=== PATIENT | male | born 1995 | race Caucasian/White ===

== ENCOUNTER → 2017-12-17 | Outpatient (CLI) | payer BC ==
[~2017-12-17] MED LIST: AMOX500T PO; OPTIRAY 320 IV PRN; SUMA6KIT IM; VSK5 PO
--- NOTE | 2017-12-17 13:26 | DIAGNOSTIC IMAGING REPORT ---
CT ANGIOGRAM OF THE CHEST CLINICAL HISTORY: Atypical chest pain. COMPARISON STUDY: Chest x-ray dated 12/07/2006. TECHNIQUE: Following the IV administration of 93 cc of Optiray 320, CT angiogram of the chest was performed from the upper abdomen to the thoracic inlet utilizing the pulmonary embolus protocol. Images are reviewed in the axial, sagittal, and coronal planes. 3-D MIPS images are created and assessed. IV contrast was administered without complication. A dose lowering technique was utilized adhering to the principles of ALARA. The examination is compromised by motion artifact. CT DOSE: 520.96 mGycm FINDINGS: Thyroid: Imaged portions of the thyroid gland are normal in size and attenuation. Thoracic aorta: The thoracic aorta is normal in caliber and demonstrates standard 3-vessel arch anatomy. No dissection is seen. Pulmonary vasculature: The pulmonary trunk is normal in caliber. There are no filling defects identified in main, lobar, or proximal segmental pulmonary branches to suggest pulmonary embolus. Heart: The heart is normal in size and configuration, and without pericardial effusion. Lungs and pleural spaces: A 3 mm right middle lobe pulmonary nodule is seen on image #131. This is of doubtful significance in this age group. No airspace consolidation or pleural effusion is identified. Trachea and central airways are clear. Mediastinum: There is no mediastinal lymphadenopathy. Sarahi: Clear. Axillae: There is no axillary lymphadenopathy. Upper abdomen: Partially visualized upper abdominal viscera is within normal limits. Skeletal structures: No lytic or blastic bony lesions are seen. IMPRESSION: 1. There is no evidence of pulmonary embolus in the main, lobar, or proximal segmental pulmonary arteries. 2. The lungs are clear. Electronically signed by: Grady Welch M.D. 12/17/2017 1:25 PM Dictated Date/Time: 12/17/2017 1:21 PM
== END | disposition home or self-care (01) ==
LOC: C.CTS 13:02
PROVIDERS: ATTEND Internal Medicine Pulmonary Disease
DX: R05 Cough (principal); R04.2 Hemoptysis

== ENCOUNTER → 2017-12-17 | Outpatient (CLI) | payer BC ==
[~2017-12-17] MED LIST changes: -OPTIRAY 320 IV PRN
[2017-12-17 11:04] LABS: PTT PATIENT 25.2 SECONDS (21.0-31.0)
[2017-12-17 11:47] LABS: INFLUENZA B ANTIGEN Neg for Influ B (NEG)
== END | disposition home or self-care (01) ==
LOC: C.LAB1850 09:22
PROVIDERS: ATTEND Internal Medicine Pulmonary Disease
DX: R04.2 Hemoptysis (principal); R05 Cough

== ENCOUNTER 2017-12-20 07:01 | Day surgery (SDC) | payer BC ==
[~2017-12-20] VITALS: Ht 177.8 cm; Wt 95.5 kg
[2017-12-20] VITALS (8 sets, daily range): BP systolic 108–144; BP diastolic 52–80; PULSE 59–87; TEMP 36.6–36.9; O2SAT 97–100; Ht 177.8 cm; Wt 95.5 kg
[~2017-12-20 07:01] MED LIST changes: -AMOX500T PO; -VSK5 PO
--- NOTE | 2017-12-20 07:22 | History and Physical ---
History & Physical Date of Service Dec 20, 2017. History & Physical 22-year-old white male present her today to undergo bronchoscopy for evaluation of hemoptysis. 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 Jess Hinojosa for pulmonary evaluation. Patient has been in relatively good health he states he was diagnosed with childhood asthma and was limited in his youth with exertional dyspnea. He had an episode while in [place] of syncope felt to be secondary to a tachycardic rhythm. He saw Dr. Gamino at [facility] who placed him on pindolol. He has not had a recurrence. It is unclear whether that represented a supraventricular tachycardia. He states he has been ill for the past 2 weeks. He developed upper respiratory infection symptoms that was felt to be secondary to a flu syndrome possibly influenza. No nasopharyngeal swabs were done. Was placed on Tamiflu he started coughing and with associated hemoptysis. Initially was blood streaking and now it is on occasion 1-2 teaspoons almost daily. He has some symptoms of chest tightness but without pleuritic pain. He admits to some mild swelling of his lower extremities but no calf tenderness and no history of DVT or pulmonary thromboembolic episodes. No family history for such. He denies any bleeding diatheses but he has had epistaxis in the past. That has been self-limiting. No chest trauma noted. He does have an albuterol HFA to use 2 puffs q.4 hours p.r.n. and was placed on Augmentin 875 milligrams p.o. b.i.d. for 10 days. He has several days remaining. Dr. Barber is his primary care physician but will be retiring in the spring. Chest x-ray on 12/10/2017 showed no acute cardiopulmonary process. He is scheduled for a CTA on Wednesday. He has received a flu vaccine. He has been treated for left serous otitis in June for he has used nebulizer with albuterol and a steroid in the past. He suffers from GERD symptoms but does not take anything on a daily basis. He also has been diagnosed with Tourettes disorder exhibited by motor tics that he no longer shows to any significant degree unless he stressed. Most recent white count 7700 H/H 14 in 43 with 3.5 percent eosinophiles. Holter monitor in 2013 shows sinus tachycardia with no atrial or ventricular arrhythmias. He does have a history of allergic rhinitis and irritable bowel syndrome as well as migraine headaches. He has had no recurrence of though syncopal episodes. Active Problems 1. Migraine headache (G43.909) 2. Syncope and collapse (R55) Surgical History 1. History of Appendectomy 2. History of Oral Surgery Tooth Extraction Family History 1. No pertinent family history 2. Family history of Egg allergy 3. Family history of TBI (traumatic brain injury) Social History Alcohol use Chews tobacco (Z72.0) Former smoker (Z87.891) Current Meds 1. SUMAtriptan Succinate 4 MG/0.5ML SOLN; INJECT SUBCUTANEOUSLY ONE DOSE AT 2. Excedrin Migraine 250-250-65 MG Oral Tablet; TAKE 1 TABLET 3 TIMES DAILY 3. Tylenol Extra Strength 500 MG Oral Tablet; TAKE 1 TABLET EVERY 4 TO 6 HOURS Allergies 1. No Known Drug Allergies Vitals Blood Pressure: 118 / 76, LUE, Sitting Height: 5 ft 10 in Weight: 213 lb 4 oz BMI Calculated: 30.6 BSA Calculated: 2.14 O2 Saturation: 98, RA Respiration: 16 Temperature: 98 F Heart Rate: 68 CT (Chest for PE) Angiography 12/17/17 No evidence of PE, lung are WNL PT/INR Prothrombin Time 10.0 INR 1.0 17 Dec 2017 9:24 AM PTT PTT PATIENT 25.2 PARTIAL THROMBOPLASTIN RATIO 1.0 17 Dec 2017 9:24 AM Influenza Vir A or B Antigen Influenza Type A Ag Neg for Influ A Influenza Type B Ag Neg for Influ B Physical Exam Constitutional General appearance: No acute distress, well appearing and well nourished. Eyes Conjunctiva and lids: No swelling, erythema, or discharge. Pupils and irises: Equal, round and reactive to light. Ears, Nose, Mouth, and Throat External inspection of ears and nose: Normal. Otoscopic examination: Tympanic membrance translucent with normal light reflex. Canals patent without erythema. Oropharynx: Normal with no erythema, edema, exudate or lesions. Pulmonary Respiratory effort: No increased work of breathing or signs of respiratory distress. Auscultation of lungs: Clear to auscultation. Cardiovascular Palpation of heart: Normal PMI, no thrills. Auscultation of heart: Normal rate and rhythm, normal S1 and S2, without murmurs. Examination of extremities for edema and/or varicosities: Normal. Abdomen Abdomen: Non-tender, no masses. Liver and spleen: No hepatomegaly or splenomegaly. Lymphatic Palpation of lymph nodes in neck: No lymphadenopathy. Musculoskeletal Gait and station: Normal. Digits and nails: Normal without clubbing or cyanosis. Inspection/palpation of joints, bones, and muscles: Normal. Skin Skin and subcutaneous tissue: Normal without rashes or lesions. Neurologic Cranial nerves: Cranial nerves 2-12 intact. Reflexes: 2+ and symmetric. Sensation: No sensory loss. Psychiatric Orientation to person, place and time: Normal. Mood and affect: Normal.
[2017-12-20] MEDS ORDERED: VSK5 PO ×2 (07:49)
[2017-12-20] MEDS ORDERED: AMOX500T PO ×2 (07:50)
--- NOTE | 2017-12-20 08:43 | History & Physical Bridge Note ---
H&P Re-Evaluation Bridge Note: I have examined the patient, reviewed the History & Physical and in the interval since the performance of the History & Physical I have noted the following changes of clinical significance: No changes noted
--- NOTE | 2017-12-20 08:44 | Pre Sedation Assessment ---
Pre Sedation Assessment General Date of Sedation: Dec 20, 2017. Vital Signs Past 12 Hours Date Time Temp Pulse Resp B/P (MAP) Pulse Ox O2 Delivery O2 Flow Rate FiO2 12/20/17 07:52 36.9 73 20 128/76 (93) 100 Room Air Pre-Sedation Airway Assessment Smoking Status: Former Smoker Hx of Sleep Apnea: No Short Thick Neck: No Oral Cavity: WNL Mallampati Classification: Class II ASA Classification: Class I NPO Status Date of Last Intake of Fluids: Dec 19, 2017 Time of Last Intake of Fluids: 2200 Date of Last Intake of Solids: Dec 19, 2017 Time of Last Intake of Solids: 1800 Procedure Planning Contraindications for Sedation: None Current Medications Reviewed: Yes Notes The planned sedation has been discussed with the patient. Informed Consent was obtained. I have identified the patient, determined the appropriateness of sedation and have assessed the patient immediately prior to the procedure. All medicine(s) and interventions are by my order.
[2017-12-20] MEDS ORDERED: NURSING VERBAL MED ORDER ONE (09:00)
[2017-12-20] MEDS ORDERED: DEXTROSE 5% 1000ML 1,000 ML IV SCH (09:30)
--- NOTE | 2017-12-20 09:47 | Post Sedation Assessment ---
Post Sedation Assessment General Date of Sedation Dec 20, 2017. Vital Signs: Vital Signs Past 12 Hours Date Time Temp Pulse Resp B/P (MAP) Pulse Ox O2 Delivery O2 Flow Rate FiO2 12/20/17 09:40 69 17 136/77 90 Oxymask 6 12/20/17 09:35 76 16 130/74 88 Oxymask 6 12/20/17 09:30 74 14 135/80 97 Oxymask 6 12/20/17 09:25 72 14 122/73 96 Oxymask 6 12/20/17 09:20 64 18 128/73 98 Oxymask 6 12/20/17 09:14 70 21 129/74 97 Oxymask 6 12/20/17 07:52 36.9 73 20 128/76 (93) 100 Room Air Post Procedure Recovery Score Activity: (2) Moves 4 extremities * Circulation: (2) +/-20% PreAnes Value Consciousness: (1) Arouseable (by name) Oxygen Saturation: (1) O2 needed for >90% Discharge Sedation Level of Care: Phase I Post Sedation Plan On clinical assessment, the patient appears to have tolerated the sedation without complications. Patient is recovering as anticipated. Patient will continue to be monitored by nursing and may be discharged when sedation discharge criteria are met per below protocol. Upon Completions of procedure and additional 15 minutes continue every 5 minute vital signs and the P.A.R. score; then discharge to a Phase I or Fast Track to Phase II per the following guidelines: * Discharge Patient to appropriate Phase II area if PAR is 8 or greater or return to pre- procedure baseline. The post - procedure orders will be as directed. * If PAR score is less than 8 or not return to pre-procedure baseline then patient will follow Phase I monitoring till PAR is reached for Phase II. The Phase I may be done in procedure room or may call to secure a Phase I area. * If naloxone or flumazenil are used for reversal, hold in Phase I for an additional 60 -120 minutes before discharge to Phase II. Please call the Sedation Physician to re-evaluate and complete post-note for discharge to Phase II area. Do NOT discharge from procedure sedation or Phase 1 until post- sedation evaluation note is complete by procedure /sedation MD Sedation Discharge Instructions to be given to the patient at discharge to home.
--- NOTE | 2017-12-20 09:49 | Bronchoscopy Procedure Note ---
Bronchoscopy Procedure Note Procedure: Bronchoscopy, conscious sedation, bronchial lavage right middle lobe Consent: Obtained through the patient placed into the chart Pre-procedural diagnosis: Hemoptysis Post-procedural diagnosis: Hemoptysis Start time: 919 End time: 939 Total time: 20minutes Analgesia: 2% liquid lidocaine: Via nebulizer 4% gel lidocaine: Via right naris 2% liquid lidocaine: Via bronchoscopy Sedation: Versed IV: 6mg Fentanyl IV: 125g Procedure: The [place] video bronchoscope was used for this procedure and passed down through the oropharynx and retroflexed off the soft palate Zena/posterior naris/posterior oropharynx: Some mild posterior oropharyngeal erythema with cobblestoning Glottis: Anatomically within normal limits Vocal cords: Proper abduction and abduction, anatomically within normal limits Subglottis/trachea/Tierney: Anatomically within normal limits Right bronchial tree: Right mainstem bronchus: Anatomically within normal limits Right upper lobe: Anatomically within normal limits Bronchus intermedius: Anatomically within normal limits Right middle lobe: Anatomically within normal limits Right lower lobe: Anatomically within normal limits Findings: No significant findings noted Left bronchial tree: Left mainstem bronchus: Anatomically within normal limits Left upper lobe: Anatomically within normal limits Lingula: Anatomically within normal limits Left lower lobe: Anatomically within normal limits Findings: No significant findings noted Bronchial alveolar lavage: Right middle lobe Esophagus: The bronchoscope was passed approximately 5 cm in the esophagus and then esophagus was inflated there is some mild erythema appreciated EBL: None Complications: None Follow-up: ASU
[2017-12-20] MEDS ORDERED: LIDOCAINE VISCOUS 2% 100ML TOP ONE (09:57)
[2017-12-20] MEDS ORDERED: FENTANYL CITRATE INJ 50 MCG/1 ML 2 ML VIAL IV ONE (09:57)
[2017-12-20] MEDS ORDERED: MIDAZOLAM HCL 5 MG/ML 1 ML VIAL IV ONE (09:57)
[2017-12-20] MEDS ORDERED: LIDOCAINE 4% INH SOLN 4 ML BTL TOP ONE (09:57)
[2017-12-20] MEDS ORDERED: LIDOCAINE HCL 2% LOCAL 50ML VIAL INSTIL ONE (09:57)
--- NOTE | 2017-12-20 10:25 | Discharge Instructions ---
Discharge Instructions Date of Service Dec 20, 2017. Admission Reason for Admission: Hemoptysis Discharge Discharge Diagnosis / Problem: hemoptysis Discharge Goals Goal(s): Diagnostic testing Activity Recommendations Activity Limitations: resume your previous activity . Instructions / Follow-Up Instructions / Follow-Up Gastroenterology: Dr. Abraham Roberts [facility] pulmonary division Dr. Alex Bowen Current Hospital Diet Patient's current hospital diet: Discharge Diet Recommended Diet: Regular Diet Procedures Procedures Performed: BRONCHOSCOPY, conscious sedation, bronchial lavage right middle lobe Pending Studies Studies pending at discharge: no Medical Emergencies . Who to Call and When: Medical Emergencies: If at any time you feel your situation is an emergency, please call 911 immediately. . Non-Emergent Contact Non-Emergency issues call your: [employer] . . "Provider Documentation" section prepared by Alex Bowen. . VTE Core Measure Inpt VTE Proph given/why not?: Treatment not indicated
== END 2017-12-20 12:23 | disposition home or self-care (01) ==
LOC: C.ACU 07:01
PROVIDERS: ATTEND Internal Medicine Pulmonary Disease
DX: R04.2 Hemoptysis (principal); F95.2 Tourette's disorder; Z90.89 Acquired absence of other organs; Z98.818 Other dental procedure status; Z87.891 Personal history of nicotine dependence

== ENCOUNTER → 2018-01-19 | Outpatient (CLI) | payer OTHER ==
[~2018-01-19] MED LIST changes: +AMOX500T PO; +ASPI-390 PO; +OMEP20CA59 PO; +RANI300T2 PO; +VNTHFA/IN INH; +VSK5 PO
== END | disposition home or self-care (01) ==
LOC: C.LAB1850 17:04
PROVIDERS: ATTEND Internal Medicine Pulmonary Disease
DX: K21.9 Gastro-esophageal reflux disease without esophagitis (principal); R04.2 Hemoptysis; R06.02 Shortness of breath

== ENCOUNTER → 2018-02-04 | Day surgery (SDC) | payer OTHER ==
[~2018-02-04] VITALS: Ht 177.8 cm; Wt 95.5 kg
[~2018-02-04] MED LIST changes: -AMOX500T PO; +FENTANYL CITRATE INJ 50 MCG/1 ML 2 ML VIAL ONE; +LIDOCAINE HCL 2% 2 ML VIAL (20MG/ML) ONE; +PROPOFOL IV EMULSION 10 MG/ML 20 ML VIAL IV ONE; +SODIUM CHLORIDE 0.9% 500ML 500 ML IV ONE
[2018-02-04 10:17] VITALS: Ht 177.8 cm; Wt 95.5 kg
--- NOTE | 2018-02-04 10:30 | Endo History and Physical ---
History & Physical Date of Service: Feb 04, 2018. Chief Complaint: VOMITING BLOOD Referring Physician: DR. MUIR History of Present Illness 22 yo CM who presents for EGD secondary to hematemesis. Past Surgical History Hx Cardiac Surgery: No Hx Internal Defibrillator: No Hx Pacemaker: No Hx Abdominal Surgery: Yes (APPY) Hx of Implantable Prosthesis: No Hx Post-Op Nausea and Vomiting: Yes (NAUSEA WITH APPY) Hx Cancer Surgery: No Hx Thoracic Surgery: Yes (BRONCHOSCOPY) Hx Orthopedic: No Hx Urinary Tract Surgery: No Family History IBD Social History Smoking Status: Former Smoker Hx Substance Use: No Hx Alcohol Use: Yes (OCCASIONALLY) Allergies Coded Allergies: No Known Allergies (Verified , 02/04/18) Current Medications Reported Home Medications Medications Dose Route/Sig Max Daily Dose Days Date Category Dose Instructions Excedrin Migraine (Ngtnfak-Ehrcjniouvvbh-Yqbxzbve) 1 Tab Tab 2 Cap PO 02/04/18 Reported Ventolin Hfa (Albuterol) 200 Puffs/13694 Mcg Aers 2-4 Puffs INH Q6H PRN 01/21/18 Reported Imitrex Statdose (Sumatriptan Succinate) 6 Mg/0.5 Ml Inj 1 Dose IM DIRECTED PRN 01/21/18 Reported Prilosec (Omeprazole) 20 Mg Capcr 20 Mg PO BID 01/21/18 Reported Zantac (Ranitidine HCl) 300 Mg Tab 300 Mg PO HS 01/21/18 Reported Visken (Pindolol) 5 Mg Tab 5 Mg PO BID 12/20/17 Reported HAS NOT RESTARTED MEDICATION, JUST REORDERED BY DR. BENNETT Vital Signs Weight (Kilograms): 95.45 Height (Feet): 5 Height (Inches): 10 Date Time Temp Pulse Resp B/P (MAP) Pulse Ox O2 Delivery O2 Flow Rate FiO2 02/04/18 10:19 37.0 83 20 139/69 (92) 95 Room Air Physical Exam General Appearance: WD/WN, no apparent distress Respiratory/Chest: Auscultation: breath sounds normal Cardiovascular: Heart Auscultation: RRR Abdomen: Bowel Sounds: normal Inspection & Palpation: soft, non-distended, no tenderness, guarding & rebound Assessment and Plan Assessment: 22 yo CM who presents for EGD secondary to hematemesis. Plan: Proceed with EGD.
--- NOTE | 2018-02-04 11:44 | Discharge Instructions ---
Endoscopy Patient Instructions Date / Procedure(s) Performed Feb 04, 2018. EGD Allergy Information Coded Allergies: No Known Allergies (Verified , 02/04/18) Discharge Date / Findings Feb 04, 2018. Gastritis s/p biopsies Esophagitis s/p biopsies Medication Instructions OK to resume all medications today as prescribed Reported Home Medications Medications Dose Route/Sig Max Daily Dose Days Date Category Dose Instructions Excedrin Migraine (Admyvww-Qychexahqgggu-Jgfngges) 1 Tab Tab 2 Cap PO 02/04/18 Reported Ventolin Hfa (Albuterol) 200 Puffs/61814 Mcg Aers 2-4 Puffs INH Q6H PRN 01/21/18 Reported Imitrex Statdose (Sumatriptan Succinate) 6 Mg/0.5 Ml Inj 1 Dose IM DIRECTED PRN 01/21/18 Reported Prilosec (Omeprazole) 20 Mg Capcr 20 Mg PO BID 01/21/18 Reported Zantac (Ranitidine HCl) 300 Mg Tab 300 Mg PO HS 01/21/18 Reported Visken (Pindolol) 5 Mg Tab 5 Mg PO BID 12/20/17 Reported HAS NOT RESTARTED MEDICATION, JUST REORDERED BY DR. BENNETT Provider Instructions Activity Restrictions - No exercising or heavy lifting for 24 hours. - Do not drink alcohol the day of the procedure. - Do not drive a car or operate machinery until the day after the procedure. - Do not make any important decisions or sign important papers in 24 hours after the procedure. Following Day: - Return to full activity which may include returning to work/school. Diet Start your diet with liquids and light foods (jello, soup, juice, toast). Then eat your usual diet if not nauseated. Treatment For Common After Affects For mild abdominal pain, bloating, or excessive gas: - Rest - Eat lightly - Lie on right side Follow-Up Information Follow-up with DR. MUIR as scheduled Anesthesia Information What You Should Know You have had a procedure that required some medicine to reduce anxiety and discomfort. This treatment is called moderate sedation. After receiving the treatment, you may be sleepy, but you will be able to breathe on your own. The effects of the treatment may last for several hours. Follow these instructions along with Activity/Diet recommendations noted above: * Do NOT do anything where dizziness or clumsiness would be dangerous. * Rest quietly at home today, then you can be up and about tomorrow. * Have a responsible person stay with you the rest of today. * You may have had an I.V. today. If so, you may take the dressing off later today. Recommendations Call your doctor if: * Trouble breathing * Continuous vomiting for more than 24 hours * Temperature above 101 degrees * Severe abdominal pain or bloating * Pain not relieved by pain medicine ordered * There is increased drainage or redness from any incision * A large amount of rectal bleeding greater than 2-3 tablespoons. (If you had a polyp/s removed or have hemorrhoids, a small amount of blood - from the rectum is to be expected.) * You have any unanswered questions or concerns. IN THE EVENT OF A SERIOUS EMERGENCY, GO TO THE NEAREST EMERGENCY ROOM Your discharge instructions were prepared by provider Rolando Roberts. Patient Instructions Signature Page Hernan Humphreys Patient (or Guardian) Signature/Date: I have read and understand the instructions given to me by my caregivers. Caregiver/RN/Doctor Signature/Date: The above-named patient and/or guardian has received patient instructions on this date. + Original Patient Signature Page (only) stays with chart. Please make copy for patient.
--- NOTE | 2018-02-04 11:59 | Anesthesiology Progress Note ---
Anesthesia Post Op Note Date & Time Feb 04, 2018 at 11:58 Vital Signs Pain Intensity: 6 Vital Signs Past 12 Hours Date Time Temp Pulse Resp B/P (MAP) Pulse Ox O2 Delivery O2 Flow Rate FiO2 02/04/18 11:52 76 20 93/66 (75) 98 Room Air 02/04/18 10:19 37.0 83 20 139/69 (92) 95 Room Air Notes Mental Status: alert / awake / arousable, participated in evaluation Pt Amnestic to Procedure: Yes Nausea / Vomiting: adequately controlled Pain: adequately controlled Airway Patency, RR, SpO2: stable & adequate BP & HR: stable & adequate Hydration State: stable & adequate Anesthetic Complications: no major complications apparent
[2018-02-04 12:22] VITALS: BP 112/52; PULSE 74; O2SAT 97
--- NOTE | 2018-02-08 08:47 | GI REPORT ---
Procedure Date: 02/04/2018 11:25 AM Procedure: Upper GI endoscopy Indications: Hematemesis Medicines: Monitored Anesthesia Care Complications: No immediate complications. Estimated Blood Loss: Estimated blood loss: none. Procedure: Pre-Anesthesia Assessment: - Prior to the procedure, a History and Physical was performed, and patient medications and allergies were reviewed. The patient's tolerance of previous anesthesia was also reviewed. The risks and benefits of the procedure and the sedation options and risks were discussed with the patient. All questions were answered, and informed consent was obtained. Prior Anticoagulants: The patient has taken no previous anticoagulant or antiplatelet agents. ASA Grade Assessment: II - A patient with mild systemic disease. After reviewing the risks and benefits, the patient was deemed in satisfactory condition to undergo the procedure. After obtaining informed consent, the endoscope was passed under direct vision. Throughout the procedure, the patient's blood pressure, pulse, and oxygen saturations were monitored continuously. The scope was introduced through the mouth, and advanced to the second part of duodenum. The upper GI endoscopy was accomplished without difficulty. The patient tolerated the procedure well. Findings: LA Grade A (one or more mucosal breaks less than 5 mm, not extending between tops of 2 mucosal folds) esophagitis with no bleeding was found. Biopsies were taken with a cold forceps for histology. Localized mild inflammation characterized by erythema was found in the gastric antrum. Biopsies were taken with a cold forceps for histology. The examined duodenum was normal. Impression: - LA Grade A reflux esophagitis. Biopsied. - Gastritis. Biopsied. - Normal examined duodenum. Recommendation: - Resume previous diet. - Continue present medications. - Await pathology results. - Return to primary care physician as previously scheduled. Rolando Roberts, 02/04/2018 11:49:50 AM This report has been signed electronically. Note Initiated On: 02/04/2018 11:25 AM I attest to the content of the Intraoperative Record and orders documented therein, exceptions below
== END | disposition home or self-care (01) ==
LOC: C.GI 09:51
PROVIDERS: ATTEND Internal Medicine
DX: K92.0 Hematemesis (principal); K21.0 Gastro-esophageal reflux disease with esophagitis; K29.70 Gastritis, unspecified, without bleeding; Z90.49 Acquired absence of other specified parts of digestive tract; Z87.891 Personal history of nicotine dependence

== ENCOUNTER 2025-03-24 17:00 | Inpatient (IN) ==
--- OUTSIDE RECORDS SUMMARY | 2025-03-24 17:07 | External Medical Summary | Summary of Care ---
Author Name Unknown Organization [facility] Address [address] [place] [address] Phone [phone] Care Team Providers [employer] Contact Printer Name Role Phone Jess Hinojosa DO Primary Care Provider [phone] Reason for Referral * Precert (Within 10 days (routine)) - Pending Review Specialty Diagnoses / Procedures Referred By Nguyễn herrera Referred To Contact Sleep Disorders Diagnoses ALANA (obstructive sleep apnea) Procedures HOME SLEEP TEST W/TYPE 4 MONITOR, 3 CHANNEL Sheng Jim PA-C [address] [place] [address] Phone: tel: fax: Referral ID Status Reason Start Date Expiration Date V isits Requested Visits Authorized [id number] Pending Review 02/21/2025 999 999 Reason for Visit * Reason Comments Follow Up * Evaluate & Treat - Unlimited Visits (Within 10 days (routine)) - Pending Review Specialty Diagnoses / Procedures Referred By Nguyễn herrera Referred To Contact Sleep Medicine / Sleep Disorders Diagnoses S/P ablation operation for arrhythmia SVT (supraventricular tachycardia) (HCC) Samina Blakely CRNP [address] [place] [address] Phone: tel: fax: Referral ID Status Reason Start Date Expiration Date Visits Requested Visits Authorized [id number] Pending Review Specialty Services Required 01/26/2025 2 2 Encounter Details Date Type Department Care Team (Late st Contact Info) Description 02/21/2025 3:30 PM EDT Telemedicine Sleep Disorders Medicine Abhay Carter [address] [place] [id number] Sheng Jim PA-C [address] [facility] [place] [id number] ALANA (obstructive sleep apnea)* Allergies Active Allergy Reactions Criticality Noted Date Comments Doxycycline Hives High 08/07/2021 Rash all over body Sumatriptan Neuro complications (Please comment) 09/19/2020 Severe muscle pain, increased migraine. documented as of this encounter (statuses as of 02/21/2025) Medications Rizatriptan Benzoate (MAXALT) 10 MG TabletIndications :Migraine variant Take 1 Tab by mouth as needed for Migraine. at onset of headache, may repeat every 2 hours up to 2 times. Up to 3 tablets in 24 hours 20 Tab 3 0 Active Albuterol Sulfate HFA 108 (90 Base) MCG/ACT Inhalation Aerosol SolutionIndicatio ns:Acute bronchospasm Inhale 2 Puffs by mouth every 4 hours as needed for Wheezing. 18 g 3 1 Active Simethicone 80 MG Oral Tablet Chewable (Mylicon) Take 1 Tablet by mouth every 6 hours as needed for Gas. 30 Tablet 3 Active Acetaminophen 325 MG Oral Tablet (Tylenol) Take 3 Tablets by mouth every 6 hours. 30 Tablet 3 Active Ondansetron HCl 4 MG Oral Tablet (Zofran)Indicatio ns:Preop examination TAKE ONE TABLET BY MOUTH EVERY 8 HOURS NEEDED FOR NAUSEA AFTER SURGERY 20 Tablet 4 02/22/20 25 Active Pantoprazole Sodium 40 MG Oral Tablet Delayed Release (Protonix) Take 1 Tablet by mouth in the morning. 90 Tablet 3 4 Active Metoprolol Succinate ER 25 MG Oral Tablet Extended Release 24 Hour (toPROL XL) Take 1 Tablet by mouth in the morning and 1 Tablet before bedtime. 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 Reflux esophagitis 02/27/2008 Obesity, BMI not known 05/02/2007 ANTONIA TOURETTE DISORDER 11/08/2006 Family history of other cardiovascular diseases 06/01/2006 Overview (02/13/2016): ICD-10 update of inactive term Chronic motor or vocal tic disorder 08/25/2005 Irritable bowel syndrome 02/08/2004 Other allergic rhinitis 05/02/1999 Overview (09/14/2017): ICD-10 update of inactive term documented as of this encounter (statuses as of 02/21/2025) Resolved Problems Problem Noted Date Diagnosed Date Resolved Date Post-op pain 02/04/2023 06/01/2024 Food insecurity 03/30/2022 03/31/2023 Overview: Per [facility] Protocol Palpitations 09/17/2014 07/05/2020 ADVANCE DIRECTIVE INFORMATION 11/30/2006 09/25/2024 Overview (11/30/2006): Not applicable (under age of 18) Asthma with severity to be determined 08/25/2005 02/26/2012 Overview (03/02/2016): ICD-10 update of inactive term PURE HYPERCHOLESTEROLEM 02/14/200410/22 Overview (11/07/2009): Per Lipid Taxonomy. documented as of this encounter (statuses as of 02/21/2025) Immunizations Name Administration Dates Next Due COVID-19 mRNA, LNP-s, No Pre serve, 2-Dose Series ([employer]) 09/15/2021,12/03/2020,11/09/2020 Covid-19, Mrna, Lnp-s, Pf, B ivalent, 30 Mcg, IM, 12 yrs and above ([employer]) 10/20/2022 HPV Vaccine, 9-Valent 05/06/2023 Hepatitis B, 0-19 yrs 03/21/2013 Meningococcal Conjugate Vacc ine (Menactra/Menveo) 11/20/2008 Meningococcal MCV4O Conjugat e Vaccine (Menveo) 05/06/2023 PPD 06/01/2024,,05/06/2023,05/31,12/10/2017,12/06/2012 Seasonal Influenza Vac., MDV , IM, 0.5 mL (Fluzone) 08/18/2014,11/25/2011,10/16/2009,10/10 Seasonal Influenza, PF, 6 M & above, IM , (FluLaval or Fluzone) 08/20/2023,07/28/2022 Seasonal Influenza, Quadriva lent, No Preserve, IM 09/22/2019,09/09/2017 Seasonal Influenza, Trivalen t, (IIV3), PF, (Fluzone) 09/11/2024 TDAP (age 10 and older)(Boostrix) 12/27/2019, Varicella Vaccine (Chicken Pox) 11/20/2008 documented as of this encounter Social History Tobacco Use Types Packs/Day Years Used Date Smoking Tobacco: Former Cigarettes 0.3 2 1 12/23/2009 - 10/22/2012 Smokeless Tobacco: Former Chew, Snuff Quit: 2020 Comments:no passive smoke at home Alcohol Use Standard Drinks/Week Comments Yes 0 (1 standard drink = 0.6 oz pur e alcohol) social PHQ-2 Answer Date Recorded PHQ Adult Total Score 0 06/01/2024 Hunger Vital Sign Answer Date Recorded Within the past 12 months, y ou worried that your food would run out before you got the money to buy more. Never true 06/01/20 24 Within the past 12 months, t he food you bought just didn't last and you didn't have money to get more. Never true 06/01/2024 Childcare Answer Date Recorded Do you feel overwhelmed with taking care of a child, family member or friend? No 06/01/2024 Does your family need help f inding childcare? (Household - for ages 0-17 years) Not on file 06/01/2024 Clothing Answer Date Recorded Have you been unable to get clothing when it was really needed? No 06/01/2024 Is your family able to get c lothes or diapers when needed? (Household - for ages 0-17 years) Not on file 06/01/2024 Personal Safety Answer Date Recorded Do you feel unsafe or have concerns for your saf ety? No 06/01/2024 Do you have concerns for you r family's safety? (Household - for ages 0-17 years) Not on file 06/01/2024 Utilities Answer Date Recorded Do you have trouble paying y our heating, water, or electric bill? No 06/01/2024 Is your family able to pay t he heat, water, or electric bill? (Household - for ages 0-17 years) Not on file 06/01/2024 Does your family have access to good internet? (Household - for ages 0-17 years) Not on file 06/01/2024 Employment Status Answer Date Recorded Are you unemployed or without regular income? No 06/01/2024 Does the household have a [facility] [place] source of income? (Household - for ages 0-17 years) Not on file 06/01/2024 Social Connections Answer Date Recorded How often do you feel lonely or isolated from th ose around you? Never 06/01/2024 Financial Resource Strain Answer Date R ecorded Do you have any trouble payi ng for your medications, or do you think you might in the future? No 06/01/2024 Does your family have troubl e paying for medicine? (Household - for ages 0-17 years) Not on file 06/01/2024 Transportation Needs Answer Date Record ed Do you have trouble getting a ride to medical visits or work? (Adult - for ages 18 years and over) Not on file 06/01/2024 Does your family have a hard time getting a ride to doctors visits? (Household - for ages 0-17 years) Not on file 06/01/2024 Has lack of transportation k ept you from medical appointments, meetings, work, or from getting things needed for daily living? Check all that apply. No 06/01/2024 Do you (or your family) have trouble finding or paying for a ride (transportation)? (Household - for ages 0-17 years) Not on file 06/01/2024 Housing Stability Answer Date Recorded Do you currently live in a s helter or have no steady place to sleep at night? No 06/01/2024 Do you think you are at risk of becoming homeless? (Adult - for ages 18 years and over) Not on file 06/01/2024 Does your family worry about paying for your home or becoming homeless? (Household - for ages 0-17 years) Not on file 0 06/01/2024 Are you homeless or worried that you might be in the future? No 06/01/2024 Are you (or your family) tico eless or worried that you might be in the future? (Household - for ages 0-17 years) Not on file Food Insecurity Answer Date Recorded Do you need food for this week? No 06/01/2024 Are you able to get enough f ood for your family? (Household - for ages 0-17 years) Not on file 06/01/2024 Does your family need food t his week? (Household - for ages 0-17 years) Not on file 06/01/2024 Do you always have enough fo od for your family? (Household - for ages 0-17 years) Not on file 06/01/2024 Food Insecurity Answer Date Recorded Within the past 12 months, y ou worried that your food would run out before you got the money to buy more. Never true 06/01/20 24 Within the past 12 months, t he food you bought just didn't last and you didn't have money to get more. Never true 06/01/2024 Do you need food for this week? 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 Not on file Not on file Not on file documented as of this encounter Functional Status * Are you deaf or do you have serious difficulty hearing? Answer Date of Assessment Author No 02/04/2023 3:15 PM EDT Fernando Granados RN * Are you blind or do you have serious difficulty seeing, even when wearing glasses? Answer Date of Assessment Author No 02/04/2023 3:15 PM EDT Fernando Granados RN * Do you have serious difficulty walking or climbing stairs? (5 years old or older) Answer Date of Assessment Author No 02/04/2023 3:15 PM EDT Fernando Granados RN * Do you have difficulty dressing or bathing? (5 years old or older) Answer Date of Assessment Author No 02/04/2023 3:15 PM EDT Fernando Granados RN * Because of a physical, mental, or emotional condition, do you have difficulty doing errands alone such as visiting a doctor’s office or shopping? (15 years old or older) Answer Date of Assessment Author No 02/04/2023 3:15 PM Frenando Hopson RN documented as of this encounter Mental Status * Because of a physical, mental, or emotional condition, do you have serious difficulty concentrating, remembering, or making decisions? (5 years old or older) Answer Entry Date Author No 02/04/2023 3:15 PM Fernando Hopson RN documented in this encounter Patient Instructions * Patient Instructions* Sheng Jim PA-C - 02/21/2025 3:39 PM EDT We are ordering a test to evaluate you for sleep apnea. If results are positive, in most cases we will start by ordering a CPAP, and you will receive notification (via My Chart or phone) of positive test results. In some cases if the sleep apnea is very severe or shows concerning problems with oxygen, we will want you to come back to the sleep lab for aCPAP titration study. If a CPAP is ordered, you will be contacted by [employer] regarding the CPAP order, and they will match you with a home care company that supplies CPAPs. You will receive a CPAP in the followingweeks. If you do not already have a follow up appointment scheduled, once a CPAP is received please contact our office for an appointment ([phone]). Insurance requires follow-up 31-90 days after starting CPAP. Please use the machine as much as possible to meet insurance requirement of 70% (at least 4 hours per night). The insurance company is essentially renting the device from the supplier, so if you don't use it enough, they do not want to keep paying for it. Sleep Hygiene Instructions 1. Keep your bedtime and wake time the same throughout the week. Try not to vary it by more than 1 hour. 2. Do not use your bed for anything except sleep; that is, do not read, watch TV, eat or worry in bed. Sexual activity is the only exception to this rule. On such occasions, the instructions are to be followed afterward when you intend to go to sleep. 3. If you find yourself unable to fall asleep, get up and go into another room. Stay up as long as you wish, and then return to the bedroom to sleep. Although we do not want you to watch the clock, we want you to get out of bed if you do not fall asleep within 15-20 minutes. Remember, the goal is to associate your bed with falling asleep quickly! Return to bed intending to go to sleep only when you are very sleepy. 4. While out of bed during the night, engage in activities that are quiet but of interest to you (e.g. read a book). Do not exercise, eat, smoke, or take warm showers or baths. Do not lie down or fall asleep when not in bed. 5. If you do return to bed and still cannot fall asleep within 15 minutes, repeat Step 3. Do this as often as necessary throughout the night. 6. Set your alarm and get up at the same time every morning irrespective of how much sleep you got during the night. This will help your body acquire a consistent sleep rhythm. Get into bright light (open shades, turn on lights) within a few minutes of awakening. 7. Allow yourself at least 30-60 minutes before bedtime to unwind. Use this period to engage in your pre-bedtime rituals (e.g., reading, brushing teeth, etc.) in a relaxing place other than your bedroom. Dim the lights. Do not rehash the events of the day or plan tomorrow's schedule. 8. Do not watch your clock during the night. This increases wakefulness and makes it more difficultto fall asleep. Sleep Hygiene Do's and Don't's: Paying attention to good sleep hygiene is the most important thing you can do to maintain good sleep. DO: Go to bed at the same time each day. Get up from bed at the same time each day. Get regular exercise each day, preferably in the morning or afternoon. There is good evidence that regular exercise improves restful sleep. This includes stretching and aerobic exercise. Get regular exposure to outdoor or bright lights, especially in the morning. Keep the temperature of your bedroom comfortable. Keep the bedroom quiet when sleeping. Keep the bedroom dark enough to facilitate sleep. Use your bed only for sleep and sex. Take medications as directed. Use a relaxation exercise just before going to sleep. Muscle relaxation, imagery, massage, warm bath, etc. Keep your feet and hands warm. Wear warm socks and /or mittens or gloves to bed. DON'T: Exercise just before going to bed. Engage in stimulating activity just before bed, such as playing a competitive game, watching an exciting program or movie, or having an important discussion with a loved one. Have caffeine in the evening (coffee, many teas, chocolate, sodas, etc.) Read, use your smartphone or watch television in bed. Use alcohol to help you sleep. Go to bed too hungry or too full. Take another person's sleeping pills. Take ndon-jlk-[id number] sleeping pills without your doctor's knowledge. Tolerance can develop rapidlywith these medications. Diphenhydramine (an ingredient commonly found in vfxc-tse-[id number] sleep meds) can have serious side effects, especially for older patients. Command yourself to go to sleep. This only makes your mind and body more alert. documented in this encounter Progress Notes * Sheng Jim PA-C - 02/21/2025 3:22 PM EDT Sleep Medicine Follow-Up Patient location: HOME. I was in a hospital or clinic location. After connecting through televideo,patient was verified with two unique identifiers. Patient (or authorized legal contracts representative) was then informed that this was a Telemedicine visit and being conducted confidentially over secure lines. Methods to assure confidentiality were taken. Patient acknowledged consent and understanding of pr ivacy and security of the Telemedicine visit. The patient agreed to participate. CC: Follow up for ALANA HPI: Hernan Humphreys is a 30 year old male with fatigue, asthma, and hx of atrial tachycardia, being seen today for follow up. Initially seen by Sleep in 2021 for fatigue, PSG was ordered but canceled. He was seen by endocrine a while back and had a workup then, and had an EP study for possible SVT that need up showing atrial tach so the ablation was not done. He was started on metoprolol and fatigue has increased slightly. Per his he does snore. 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 For [employer] he works 12 hour swing shifts, could be day or night. Can sleep during mini shifter in a bunk room. Sleep schedule is: variable -- sleep time varies from 3-10 hours Bedtime ranges from 7 to midnight if he is working day shift. He finds it next to impossible to during the day despite having blackout curtains. 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 Sitting and reading Moderate chance of dozing Watching TV Slight chance of dozing Sitting inactive in a public place, such as a theater or meeting No chance of dozing As a passenger in a car for an hour without a break Moderate chance of dozing Lying down to rest in the afternoon when circumstances permit Moderate chance of dozing When sitting and talking to someone No chance of dozing When sitting quietly after lunch without alcohol Slight chance of dozing In a car, while stopped for a few minutes in traffic No chance of dozing Score (range: 0 - 24) 8 Functional Outcomes Of Sleep Question 02/21/2025 12:31 PM EDT - Filed by Patient Please complete the following questions. Do you have difficulty concentrating because you are sleepy or tired? Yes, extreme Do you have difficulty remembering things because you are sleepy or tired? Yes, moderate Do you have difficulty operating a motor vehicle for short distances (less than 100 miles) because you become sleepy? No Do you have difficulty operating a motor vehicle for long distances (more than 100 miles) because you become sleepy? Yes, a little Do you have difficulty visiting family or friends in their home because you become sleepy or tired?No Has your relationship with family, friends, or work colleagues been affected because you are sleepyor tired? No Do you have difficulty watching a movie or video because you become sleepy or tired? No Do you have difficulty being as active as you want to be in the evening because you are tired or sleepy? Yes, extreme Do you have difficulty being as active as you want to be in the morning because you are tired or sleepy? Yes, extreme Has your mood been affected because you are sleepy or tired? Yes, extreme Score (range: 10 - 40) 25 [facility] Visit Accident Related Question Question 02/21/2025 12:31 PM EDT - Filed by Patient Is this visit related to an accident? (i.e work, motor vehicle) No ROS: Denies: chest pain, SOB, RLS symptoms, parasomnias, nocturnal reflux Patient Active Problem List Diagnosis Other allergic rhinitis Irritable bowel syndrome Chronic motor or vocal tic disorder Family history of other cardiovascular diseases ANTONIA TOURETTE DISORDER Obesity, BMI not known Reflux esophagitis DYSLIPIDEMIA, GOAL TO BE DETERMINED Migraine Asthma in remission Adjustment disorder with depressed mood Other acne Migraine variant Betancourt's esophagus without dysplasia Hiatal hernia GERD (gastroesophageal reflux disease) Hiatal hernia Well adult exam SVT (supraventricular tachycardia) (HCC) Past Medical History: Diagnosis Date asthma 04/2005 Asthma Chronic motor or vocal tic disorder GERD (gastroesophageal reflux disease) Hx of migraines IBS (irritable bowel syndrome) PUD (peptic ulcer disease) Tourette syndrome Current Outpatient Medications Medication Sig Dispense Refill Metoprolol Succinate ER 25 MG Oral Tablet Extended Release 24 Hour (toPROL XL) Take 1 Tablet by mouth in the morning and 1 Tablet before bedtime. 30 Tablet 11 Pantoprazole Sodium 40 MG Oral Tablet Delayed Release (Protonix) Take 1 Tablet by mouth in the morning. 90 Tablet 3 Ondansetron HCl 4 MG Oral Tablet (Zofran) TAKE ONE TABLET BY MOUTH EVERY 8 HOURS NEEDED FOR NAUSEA AFTER SURGERY 20 Tablet 0 Rizatriptan Benzoate (MAXALT) 10 MG Tablet Take 1 Tab by mouth as needed for Migraine. at onset of headache, may repeat every 2 hours up to 2 times. Up to 3 tablets in 24 hours 20 Tab 3 Acetaminophen 325 MG Oral Tablet (Tylenol) Take 3 Tablets by mouth every 6 hours. 30 Tablet 0 Simethicone 80 MG Oral Tablet Chewable (Mylicon) Take 1 Tablet by mouth every 6 hours as needed forGas. 30 Tablet 0 Albuterol Sulfate HFA 108 (90 Base) MCG/ACT Inhalation Aerosol Solution Inhale 2 Puffs by mouth every 4 hours as needed for Wheezing. 18 g 3 No current facility-administered medications for this visit. PHYSICAL EXAM: PE limited due to telemedicine. Patient does not appear to be in distress. No rash on visible skin on face. Breathing does not appear to be labored. No audible stridor. Speech is clear and appropriate. Appropriate affect. ASSESSMENT/PLAN: Obstructive sleep apnea Continue using CPAP nightly and for all hours of sleep. Recommended routine cleaning and change of supplies as needed. JNC 7 lists ALANA as a causal risk factor for hypertension. Effective treatment of hypertension decreases cardiovascular risk/injury. Lifestyle modification with diet and exercise changes were encouraged because weight loss often results in improvement of sleep disordered breathing. Avoid driving, operating heavy machinery or engaging in any activity that requires full alertness if feeling sleepy, drowsy or otherwise impaired. Reviewed good sleep hygiene and recommended patient keep consistent bed/wake times and to get 7-8 hours of sleep. Follow-up with Sleep Medicine in about 3 months, after HST. I spent a total of 30-39 minutes (exact time 35 mins) on the date of service in preparation, delivery, and documentation of the care provided to Hernan Humphreys excluding any time spent in the performance of separately billed services or time spent by another provider/QHP. Sheng Jim PA-C documented in this encounter Nursing Notes * Samina Michaud LPN - 02/21/2025 1:29 PM EDT Hernan Humphreys [id number] There is no height or weight on file to calculate BMI. Neck Circumference: inches. 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 Witnessed apnea and snoring History of SVT, S/P Ablation. [place] Sleepiness Scale Question 02/21/2025 12:30 PM EDT - Filed by Patient What is the chance you will doze off in the following situation? Sitting and reading Moderate chance of dozing Watching TV Slight chance of dozing Sitting inactive in a public place, such as a theater or meeting No chance of dozing As a passenger in a car for an hour without a break Moderate chance of dozing Lying down to rest in the afternoon when circumstances permit Moderate chance of dozing When sitting and talking to someone No chance of dozing When sitting quietly after lunch without alcohol Slight chance of dozing In a car, while stopped for a few minutes in traffic No chance of dozing Score (range: 0 - 24) 8 Functional Outcomes Of Sleep Question 02/21/2025 12:31 PM EDT - Filed by Patient Please complete the following questions. Do you have difficulty concentrating because you are sleepy or tired? Yes, extreme Do you have difficulty remembering things because you are sleepy or tired? Yes, moderate Do you have difficulty operating a motor vehicle for short distances (less than 100 miles) because you become sleepy? No Do you have difficulty operating a motor vehicle for long distances (more than 100 miles) because you become sleepy? Yes, a little Do you have difficulty visiting family or friends in their home because you become sleepy or tired?No Has your relationship with family, friends, or work colleagues been affected because you are sleepyor tired? No Do you have difficulty watching a movie or video because you become sleepy or tired? No Do you have difficulty being as active as you want to be in the evening because you are tired or sleepy? Yes, extreme Do you have difficulty being as active as you want to be in the morning because you are tired or sleepy? Yes, extreme Has your mood been affected because you are sleepy or tired? Yes, extreme Score (range: 10 - 40) 25 Myc Visit Accident Related Question Question 02/21/2025 12:31 PM EDT - Filed by Patient Is this visit related to an accident? (i.e work, motor vehicle) No documented in this encounter Plan of Treatment Upcoming Encounters Date Type Department Care Team (Late st Contact Info) Description 05/01/2025 1:30 PM EDT Cardiac Studies [facility] Studies [facility] [place] [address] [place] [address] [place], [place] [address] [facility] [place], [place] [id number] 05/01/2025 2:00 PM EDT Office Visit Cardiology [facility] [place] [address] [facility], [place] [id number] Leela Finley CRNP [address] [place], [place] [id number] 08/23/2025 3:30 PM EDT Cardiac Studies Cardiac Studies [facility] [place] [address] [place] [address] [place], E[facility] [address] [facility], [place] [id number] 08/23/2025 4:00 PM EDT Office Visit [facility]iology [facility] [place] [address] [facility], [place] [id number] Óscar Pina DO [address] [place] [address] Scheduled Orders Name Type Priority Associated Diagnoses Orde r Schedule HOME SLEEP TEST W/TYPE 4 MONITOR, 3 CHANNEL Procedures Routine ALANA (obstructive sleep apnea) Ordered: 02/21/2025 Health Maintenance Due Date Last Done Comments Pneumococcal Vaccine: Pediatrics (0 to 5 Years) and At-Risk Patients (6 to 18 Years and 19+ Years) (2 of 2 - PCV) 08/03/2014 08/03/2013 HPV (Gardasil) Vaccine (2 - 3-dose SCDM series) 06/03/2023 05/06/2023 COVID-19 Vaccine ( season) 2024 10/20/2022, 09/15/2021, 12/03/2020, Additional history exists Depression Screening 06/01/2025 06/01/2024 Betancourt's Esophagus Surveilance 02/03/2026 02/03/2023, 07/22/2022, 07/22/2022, Additional history exists DTap/Tdap Vaccines (8 - Td or Tdap) 12/27/2029 12/27/2019, 04/08/2006, 05/09/1999, Additional history exists MENINGOCOCCAL (MENACTRA/MENVEO) Aged Out 05/06/2023, 11/20/2008, 11/20/2008 No longer eligible based on patient's age to complete this topic Influenza Vaccine (FLU shot) Completed , 08/20/2023, 07/28/2022, Additional history exists Meningitis B Vaccine (Bexsero/Trumemba) Aged Out No longer eligible based on patient's age to complete this topic documented as of this encounter Medical Devices Implanted Type Area Product Support Analyst Device Identifier Shelf Expiration Date Model / Serial / Lot System Vascular 612fr Closure Venous Vascade Mvp - [id number] Implanted:Qty: 4 on 01/26/2025 by Óscar Pina DO at [facility] 12/15/2026 [id number] / / [id number] documented as of this encounter Visit Diagnoses Diagnosis ALANA (obstructive sleep apnea)- Primary Obstructive sleep apnea (adult) (pediatric) documented in this encounter Advance Directives * Full Code (Latest Code Status on File) Date Activated Date Inactivated Comments 01/26/2025 1:20 PM 01/26/2025 6:03 PM This order ref lects the patients wishes and were consensually agreed upon. Question Answer Comments Discussion of Advance Directives occurred with: Patient * Full Code Date Activated Date Inactivated Comments 02/03/2023 6:45 PM 02/05/2023 6:07 PM This order r eflects the patients wishes and were consensually agreed upon. Question Answer Comments Discussion of Advance Direct enid occurred with: Not Discussed due to patient's condition * Full Code Date Activated Date Inactivated Comments 02/03/2023 10:58 AM 02/03/2023 6:45 PM This order reflects the patients wishes and were consensually agreed upon. Question Answer Comments Discussion of Advance Direct enid occurred with: Not Discussed due to patient's condition Care Teams [employer] Contact Printer Relationship Specialty Start Date End Date Jess Hinojosa DO [address] [place] [address] PCP - General Family Medicine 07/05/20 documented as of this encounter
--- OUTSIDE RECORDS SUMMARY | 2025-03-24 17:07 | External Medical Summary ---
Author Name Unknown Address Unknown Organization [id number]:LABORAT[facility] - [address] [facility] [id number] Laboratory Report Ordering Provider Test Date Status MICHAEL LIU 01/11/2025 16:37:51 Final Observation Date Value Abnormality Reference (Units ) Status BUN 01/11/2025 16:37:51 13 6-20 (mg/dL) Final Creatinine 01/11/2025 16:37:51 0.8 0.6-1.2 (mg/dL) Final Glomerular filtration rate/1.73 sq M.predicted [Volume Rate/Area] in Serum, Plasma or Blood by Creatinine-based formula (CKD-EPI) 01/11/2025 16:37:51 >90 >=60 (mL/min) Final eGFR is calculated based on the CKD-EPI 2020 equation. Sodium 01/11/2025 16:37:51 136 135-146 (m mol/L) Final Potassium 01/11/2025 16:37:51 4.1 3.5-5.1 (m mol/L) Final Cl 01/11/2025 16:37:51 101 98-107 (mm ol/L) Final CO2 01/11/2025 16:37:51 24 22-32 (mmo l/L) Final Anion gap 01/11/2025 16:37:51 11 7-15 (mmol /L) Final Glucose 01/11/2025 16:37:51 104 70-120 (mg /dL) Final Albumin 01/11/2025 16:37:51 4.0 3.8-5.0 (g /dL) Final AST (Aspartate aminotransferase) 01/11/2025 16:37:51 24 10-50 (U/L) Final Results may be falsely eleva mac due to hemolysis. Alk Phos 01/11/2025 16:37:51 63 35-130 (U/ L) Final Bilirubin, Total 01/11/2025 16:37:51 <0.2 <=1 .2 (mg/dL) Final Calcium 01/11/2025 16:37:51 8.9 8.4-10.2 ( mg/dL) Final Protein 01/11/2025 16:37:51 7.1 6.0-8.3 (g /dL) Final ALT (Alanine aminotransferase) 01/11/2025 16:37:51 29 10-50 (U/L) Final Performing Location [facility] - [address] [place] [id number]
--- OUTSIDE RECORDS SUMMARY | 2025-03-24 17:07 | External Medical Summary | Summary of Care ---
Author Name Unknown Organization [facility] [address] [place] [address] Phone [phone] Care Team Providers Care Quality Assistant Name Role Phone Jess Hinojosa DO Primary Care Provider [phone] Reason for Visit * Reason Comments Loss Of Consciousness * Auth/Cert Specialty Diagnoses / Procedures Referred By Nguyễn herrera Referred To Contact [address] [address] Phone: tel:[phone] [facility] [address] Emergency Department ([facility]) [address] [place] [address] Phone: tel: fax: Referral ID Status Reason Start Date Expiration Date Visits Re quested Visits Authorized [id number] Encounter Details Date Type Department Care Team (Late st Contact Info) Description 01/11/2025 4:15 PM EST - 01/11/2025 6:03 PM EST Emergency [facility] [address] Emergency Department ([facility]) [address] [place] [address] Concetta Falk DO [address] [place] [id number] Syncope; Screening for cardiovascular condition Discharge Disposition: Home - Self Care Allergies Active Allergy Reactions Criticality Noted Date Comments Doxycycline Hives High 08/07/2021 Rash all over body Sumatriptan Neuro complications (Please comment) 09/19/2020 Severe muscle pain, increased migraine. documented as of this encounter (statuses as of 01/12/2025) Medications Rizatriptan Benzoate (MAXALT) 10 MG TabletIndication s:Migraine variant Take 1 Tab by mouth as needed for Migraine. at onset of headache, may repeat every 2 hours up to 2 times. Up to 3 tablets in 24 hours 20 Tab 3 0 Active Albuterol Sulfate HFA 108 (90 Base) MCG/ACT Inhalation Aerosol SolutionIndicati ons:Acute bronchospasm Inhale 2 Puffs by mouth every 4 hours as needed for Wheezing. 18 g 3 1 Active Simethicone 80 MG Oral Tablet Chewable (Mylicon) Take 1 Tablet by mouth every 6 hours as needed for Gas. 30 Tablet 3 Active Additional Information Patient not taking.Reported on 01/11/2025 Acetaminophen 325 MG Oral Tablet (Tylenol) Take 3 Tablets by mouth every 6 hours. 30 Tablet 3 Active Pantoprazole Sodium 40 MG Oral Tablet Delayed Release (Protonix) Take 1 Tablet by mouth in the morning. 90 Tablet 3 4 Active Metoprolol Succinate ER 25 MG Oral Tablet Extended Release 24 Hour (toPROL XL) Take 1 Tablet by mouth in the morning and 1 Tablet before bedtime. 30 Tablet 5 Active Additional Information Patient not taking.Reported on 01/11/2025 documented as of this encounter (statuses as of 01/12/2025) Active Problems Problem Noted Date Diagnosed Date [...] as of this encounter (statuses as of 01/12/2025) Resolved Problems Problem Noted Date Diagnosed Date [...] as of this encounter (statuses as of 01/12/2025) Immunizations Name Administration Dates Next Due COVID-19 mRNA, LNP-s, No Pre serve, 2-Dose Series ([employer]) 09/15/2021,12/03/2020,11/09/2020 Covid-19, Mrna, Lnp-s, Pf, B ivalent, 30 Mcg, IM, 12 yrs and above ([employer]) 10/20/2022 HPV Vaccine, 9-Valent 05/06/2023 Hepatitis B, [...] No 06/01/2024 Does the household have a re gular source of income? 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 Not on file Not on file Not on file documented as of this encounter Last Filed Vital Signs Vital Sign Reading Time Taken Comments Blood Pressure 120/82 01/11/2025 6:03 PM EST Pulse 88 01/11/2025 6:03 PM EST Temperature 36.1 °C (97 °F) 01/11/2025 4:04 PM EST Respiratory Rate 16 01/11/2025 6:03 PM EST Oxygen Saturation 100% 01/11/2025 6:03 PM EST Inhaled Oxygen Concentration - - Weight 108.9 kg (240 lb 1.3 oz) 01/11/2025 4:32 PM EST Height - - Body Mass Index 34.45 01/04/2025 9:59 AM EST documented in this encounter Functional Status * Are you [...] of Assessment Author No 02/04/2023 3:15 PM EDFernando Bruno RN * Because of a physical, mental, or emotional condition, do you have difficulty doing errands alone such as visiting a doctor’s office or shopping? (15 years old or older) Answer Date of Assessment Author No 02/04/2023 3:15 PM EDT Fernando Granados RN documented as of this encounter Mental Status * Because of a physical, mental, or emotional condition, do you have serious difficulty concentrating, remembering, or making decisions? (5 years old or older) Answer Entry Date Author No 02/04/2023 3:15 PM EDFernando Bruno RN documented in this encounter Discharge Instructions * Discharge Instructions* Scott Mcfarlane PA-C - 01/11/2025 5:48 PM EST You have been seen and evaluated in the [facility] Emergency Department. Please read the discharge instructions below regarding your care. Summary Of Today's Visit: You were seen today for an evaluation of presyncopal episode and possible arrhythmias. Your cardiopulmonary workup today was overall reassuring against any acute findings. New Prescriptions/Medication Changes: Please begin taking your metoprolol as prescribed by your shell grader tomorrow. Follow Up/Continuation Of Care: Follow up with your shell grader as indicated. Thank you for allowing us to care for you. Our goal is to provide you the best care. If you have any emergency needs in the future we will be glad to help you again. We are here to serve you! documented in this encounter ED Notes * Concetta Falk, - 01/11/2025 6:03 PM EST HISTORY OF PRESENT ILLNESS Hernan Humphreys is a 29 year old male who presents to the ED for evaluation of Loss Of Consciousness. The patient was seen at 01/11/25 1625. The patient is a 29-year-old male with a past medical history of SVT presenting to the ED for an evaluation of a syncopal event today. The patient reports he has been having short runs of SVT throughout the day and reports feeling lightheaded throughout the day. The patient presents to the ED after having a syncopal episode. The patient reports he feelslike he has been having increased numbers of these palpitations/possible arrhythmias over the past week. He also reports of feeling more lightheaded and short of breath over this week. The patient denied any acute injury from the syncopal event. At this time the patient denied any acute chest pain,palpitations, shortness of breath. Patient did endorse feeling mildly lightheaded. The patient denied any nausea, vomiting or abdominal pain. On chart review the patient was last seen by Cardiology on 01/04/2025 for evaluation of his longstanding history of tachycardia/palpitations. The patient is scheduled for an EPS study and potential ablation on 01/26/2025. Per patient message with Dr. Pina from Cardiology - today he prescribed metoprolol succinate 25 mg QD. The patient has not yet picked up this new medication prescription. Review of Systems Constitutional: Negative for chills, diaphoresis, fatigue and fever. HENT: Negative for congestion. Eyes: Negative for visual disturbance. Respiratory: Negative for chest tightness and shortness of breath. Cardiovascular: Positive for leg swelling. Negative for chest pain and palpitations. Gastrointestinal: Negative for abdominal pain, diarrhea, nausea and vomiting. Musculoskeletal: Negative for neck pain and neck stiffness. Skin: Negative for color change. Neurological: Positive for syncope and light-headedness. Hematological: Negative for adenopathy. Psychiatric/Behavioral: Negative for agitation. The patient's allergies, past history, and medications were reviewed. PHYSICAL EXAM Initial Vitals (see all): BP 152/69 | Pulse 74 | Resp 16 | Temp 97 | O2 100 %, Room Air, None | Weight 108.9 kg | Height 177.8 cm | BMI 34.45 kg/m2 Initial Pain Assessment (see all): 0 (no pain)/10 ([facility] Adult Scale 0-10 (18 years and older)) Physical Exam Vitals and nursing note reviewed. Constitutional: General: He is not in acute distress. Appearance: Normal appearance. He is not ill-appearing, toxic-appearing or diaphoretic. HENT: Head: Normocephalic and atraumatic. Right Ear: External ear normal. Left Ear: External ear normal. Nose: Nose normal. Mouth/Throat: Mouth: Mucous membranes are moist. Eyes: Conjunctiva/sclera: Conjunctivae normal. Pupils: Pupils are equal, round, and reactive to light. Cardiovascular: Rate and Rhythm: Normal rate and regular rhythm. Pulses: Normal pulses. Heart sounds: No friction rub. Pulmonary: Effort: Pulmonary effort is normal. Breath sounds: Normal breath sounds. Musculoskeletal: General: No swelling or tenderness. Cervical back: Normal range of motion and neck supple. Right lower leg: No edema. Left lower leg: No edema. Skin: General: Skin is warm and dry. Capillary Refill: Capillary refill takes less than 2 seconds. Neurological: General: No focal deficit present. Mental Status: He is alert and oriented to person, place, and time. Psychiatric: Mood and Affect: Mood normal. PROCEDURES AND TREATMENTS ED Orders | ED Results MEDICAL DECISION MAKING Nursing notes and vital signs were reviewed. ED Course as of 01/11/25 1853 [place] Jan 11, 2025 1626 EKG revealed normal sinus rhythm at 75 beats per minute, normal axis, normal intervals, no acute ischemic changes, no delta waves, no epsilon waves, no Brugada pattern, no acute changes when compared to prior EKG. [BC] 1711 Troponin T, High Sensitivity No acute elevation. [BC] 1737 Comprehensive Metabolic Panel Normal kidney function, no electrolyte derangements, no transaminitis, normal bilirubin. [BC] 1737 TSH Normal [BC] 1737 CBC with WBC Differential(!) No leukocytosis, hemoglobin 13.3, normal platelets. [BC] ED Course User Index [BC] Scott Mcfarlane PA-C Scoring Tools Results: PERC Score: 0 Differential Diagnoses Based on my history, physical exam, and evaluation, the differential includes, but is not limited, to the following diagnoses: Arrhythmia, supraventricular tachycardia, AVNRT, Icemq-[id number]-Gjtrx, electrolyte derangement, ACS, UT. The patient is a 29-year-old male with a past medical history of SVT presenting to the ED for an evaluation of a syncopal event today. The patient reports he has been having short runs of SVT throughout the day and reports feeling lightheaded throughout the day. The patient presents to the ED afterhaving a syncopal episode. On exam the patient was in no acute distress this time. The patient's vital signs were stable and he was afebrile. The patient endorsed mild lightheadedness but otherwise denied any acute symptoms present. Throughout the patient's 2 hour stay in the ED the patient had no significant runs of SVT or other arrhythmia. EKG revealed no acute ischemic changes or significant changes from prior EKG. Lab work was reassuring against any acute findings. Please see ED course above. In the ED the patient received 1000 mL NSS and 25 mg of metoprolol succinate. The patient was advised to begin taking the metoprolol succinate as prescribed by his shell grader tomorrow. The patient was also advised to follow up with his shell grader as indicated. Return precautions were provided for any new or worsening signs or symptoms. The patient was agreeable with the plan and all questions were answered prior to discharge. Amount and/or Complexity of Data Reviewed Labs: ordered. Decision-making details documented in ED Course. ECG/medicine tests: ordered. Risk Prescription drug management. Clinical Impressions Syncope Disposition Discharged. The patient's condition at disposition was: stable. Concetta Falk was the attending physician who supervised the care of this patient. Scott Mcfarlane PA-C ATTENDING ATTESTATION I have discussed the patient's management with the provider listed above and agree with the note, findings, and plan of care. I personally made/approved the management plan and take responsibility for patient management. * Bryon Cowan RN - 01/11/2025 4:34 PM EST Pt arrived via POV for a syncopal episode that occurred today. Pt said he has a hx of SVT and is scheduled for an ablation in the next couple weeks. Pt said syncopal episodes have been a recurrent episode but he hasn't had one for over a year. Pt said the past week he has been more dizzy and SOB. Pt did reach out to Dr. Pina and he prescribed a beta christina. Pt is alert and orientedx4 with no pain. documented in this encounter Plan of Treatment Upcoming Encounters Date Type Department Care Team (Latest Contact Info) Description 01/26/2025 7:00 AM EST Hospital Encounter [place] [place] [facility] [place]ing Unit, [address] [place] [phone] Óscar Pina, [address] [place] [facility] [phone] 01/26/2025 7:00 AM EST - 01/26/2025 9:00 AM EST Surgery CRS [place]ing [facility] Unit, [address] [place] [address] Óscar Pina DO [address] [place] [phone] SVT EPS AND CATHETER ABLATION 01/26/2025 7:00 AM EST Office Visit Cardiology [facility] [address] [place] [facility] [place] [place] [address] [facility] Cardiac [facility] [address] [place] [address] 08/23/2025 3:30 PM EDT Cardiac Studies Cardiac Studies [facility] [address] [place] [address] [place], Ekg [address] [place] [address] 08/23/2025 4:00 PM EDT Office Visit Cardiology [facility] [address], [place] [id number] Óscar Pina [address] [place] [address] Scheduled Orders Name Type Priority Associated Diagnoses Orde r Schedule EKG EKG STAT Syncope One Time for 1 Occurrences starting 01/11/2025 until 01/11/2025 EKG EKG STAT Screening for cardiovascular condition Perform Now for 1 Occurrences starting 01/11/2025 until 01/11/2025 Scheduled Procedures Name Priority Associated Diagnoses Date/Ti me SVT EPS AND CATHETER ABLATION SVT (supraventricular tachycardia) (HCC) 01/26/2025 7:00 AM EST Health Maintenance Due Date Last Done Comments [...] documented as of this encounter Medical Devices Not on filedocumented as of this encounter Procedures Procedure Name Priority Date/Time Associated Diagnosis Comments DIFFERENTIAL, AUTOMATED STAT 01/11/2025 4:37 PM EST TROPONIN T, HIGH SENSITIVITY STAT 01/11/2025 4:37 PM EST COMPREHENSIVE METABOLIC PANEL STAT 01/11/2025 4:37 PM EST CBC STAT 01/11/2025 4:37 PM EST CBC STAT 01/11/2025 4:37 PM EST TSH STAT 01/11/2025 4:37 PM EST documented in this encounter Results * DIFFERENTIAL, AUTOMATED (01/11/2025 4:37 PM EST) WBC 9.55 4.00 - 10.80 K/uL 01/11/2025 4:47 PM EST [facility] Neutrophils % 69.0 40.0 - 75.0 % 01/11/2025 4:47 PM EST [facility] Lymphocytes % 22.0 18.0 - 42.0 % 01/11/2025 4:47 PM EST [facility] Monocytes % 6.5 1.0 - 11.0 % 01/11/2025 4:47 PM EST [facility] Eosinophils % 2.2 0.0 - 6.0 % 01/11/2025 4:47 PM EST [facility] Basophils % 0.3 0.0 - 2.0 % 01/11/2025 4:47 PM EST [facility] Absolute Neutrophils 6.59 1.80 - 7.70 K/uL 01/11/2025 4:47 PM EST [facility] Absolute Lymphocytes 2.10 1.00 - 4.80 K/ul 01/11/2025 4:47 PM EST [facility] Absolute Monocytes 0.62 0.00 - 1.10 K/uL 01/11/2025 4:47 PM EST LABORATORY [facility] Absolute Eosinophils 0.21 0.00 - 0.70 K/uL 01/11/2025 4:47 PM EST LAB[facility]ATORY [facility] Absolute Basophils 0.03 0.00 - 0.20 K/uL 01/11/2025 4:47 PM EST LAB[facility]ORY [facility] Blood Venous blood specimen / Unknown Venipuncture / Unknown 01/11/2025 4:37 PM EST 01/11/2025 4:43 PM EST us Scott Mcfarlane PA-C LAB BLOOD ORDERABLES Fin al Result [facility] [place] [address] [place] [address] * (ABNORMAL) CBC (01/11/2025 4:37 PM EST) WBC 9.55 4.00 - 10.80 K/uL 01/11/2025 4:47 PM EST LAB[facility]ATORY [facility] RBC 4.86 4.50 - 5.25 M/uL 01/11/2025 4:47 PM EST LAB[facility]ORY [facility] HGB 13.3(L) 14.0 - 16.8 g/dL 01/11/2025 4:47 PM EST LAB[facility]ORY [facility] HCT 42.1 40.0 - 48.4 % 01/11/2025 4:47 PM EST LAB[facility] MCV 86.6 82.0 - 99.5 fL 01/11/2025 4:47 PM EST LAB[facility]ORY [facility] MCH 27.4 27.0 - 34.0 pg 01/11/2025 4:47 PM EST LAB[facility]ATORY [facility] MCHC 31.6 32.0 - 36.0 g/dL 01/11/2025 4:47 PM EST LAB[facility]ATORY [facility] RDW 13.7 11.5 - 15.5 % 01/11/2025 4:47 PM EST LAB[facility]ORY [facility] PLT 217 140 - 400 K/uL 01/11/2025 4:47 PM EST LAB[facility]ORY [facility] MPV 11.5 6.6 - 11.1 fL 01/11/2025 4:47 PM EST [facility]ORY [facility] Blood Venous blood specimen / Unknown Venipuncture / Unknown 01/11/2025 4:37 PM EST 01/11/2025 4:43 PM EST Scottnick Mcfarlane PA-C LAB BLOOD ORDERABLES Fin al Result Performing Organization Address [facility]/ZIP Co de Phone Number LABORATORY [address] [address] * TSH (01/11/2025 4:37 PM EST) [facility] TSH 1.60 0.27 - 4.20 uIU/mL 01/11/2025 5:17 PM EST LAB[facility]ATORY [facility] Blood Venous blood specimen / Unknown Venipuncture / Unknown 01/11/2025 4:37 PM EST 01/11/2025 4:43 PM EST Scottnick Mcfarlane PA-C LAB BLOOD ORDERABLES Fin al Result Performing Organization Address [facility] Phone Number LABORATORY [address] [phone] * TROPONIN T, HIGH SENSITIVITY (01/11/2025 4:37 PM EST) [facility] Troponin T, High Sensitivity <6 <=22 ng/L 01/11/2025 5:11 PM EST LAB[facility]ATORY [facility] Blood Venous blood specimen / Unknown Venipuncture / Unknown 01/11/2025 4:37 PM EST 01/11/2025 4:43 PM EST Scott Clive MIRZA-C LAB BLOOD ORDERABLES Fin al Result Performing Organization Address City/[facility] de Phone Number LABORATORY [address] [address] * COMPREHENSIVE METABOLIC PANEL (01/11/2025 4:37 PM EST) [facility] BUN 13 6 - 20 mg/dL 01/11/2025 5:23 PM EST LAB[facility]ORY [facility] CREATININE 0.8 0.6 - 1.2 mg/dL 01/11/2025 5:23 PM EST [facility] EGFR >90 >=60 mL/min 01/11/2025 5:23 PM EST [facility] Comment:eGFR is calculated b ased on the CKD-EPI 2020 equation. SODIUM 136 135 - 146 mmol/L 01/11/2025 5:23 PM EST [facility] POTASSIUM 4.1 3.5 - 5.1 mmol/L 01/11/2025 5:23 PM EST [facility] CHLORIDE 101 98 - 107 mmol/L 01/11/2025 5:23 PM EST [facility] CO2 24 22 - 32 mmol/L 01/11/2025 5:23 PM EST [facility] ANION GAP 11 7 - 15 mmol/L 01/11/2025 5:23 PM EST [facility] GLUCOSE 104 70 - 120 mg/dL 01/11/2025 5:23 PM EST [facility] Albumin 4.0 3.8 - 5.0 g/dL 01/11/2025 5:23 PM EST [facility] AST 24 10 - 50 U/L 01/11/2025 5:23 PM EST [facility] Comment:Results may be false ly elevated due to hemolysis. Alkaline Phosphatase 63 35 - 130 U/L 01/11/2025 5:23 PM EST [facility] Bilirubin, Total <0.2 <=1.2 mg/dL 01/11/2025 5:23 PM EST [facility] CALCIUM 8.9 8.4 - 10.2 mg/dL 01/11/2025 5:23 PM EST [facility] Protein 7.1 6.0 - 8.3 g/dL 01/11/2025 5:23 PM EST [facility] ALT 29 10 - 50 U/L 01/11/2025 5:23 PM EST [facility] Blood Venous blood specimen / Unknown Venipuncture / Unknown 01/11/2025 4:37 PM EST 01/11/2025 4:43 PM EST us Scott Mcfarlane PA-C LAB BLOOD ORDERABLES Fin al Result [facility] [place] [address] [place] [address] documented in this encounter Visit Diagnoses Diagnosis SVT (supraventricular tachycardia) (HCC)- Primary Other specified cardiac dysrhythmias Syncope Syncope and collapse Screening for cardiovascular condition Screening for other and unspecified cardiovascular conditions SVT (supraventricular tachycardia) (HCC) Other specified cardiac dysrhythmias documented in this encounter Administered Medications Inactive Administered Medications - up to 3 most recent administrations Medication Order MAR Action Action Date Dose Rate Site metoprolol succinate XL (toPROL XL) tab 25 mg 25 mg, Oral, ONCE, On [place] 01/11/25 at 1715, For 1 dose, Hold for HR less than 60 or SBP below 100 and notify service if dose is held This med should NOT be Crushed or Chewed. Given 01/11/2025 5:32 PM EST 25 mg NSS 0.9% 1,000 mL bolus infusion Intravenous, at 1,000 mL/hr Administer over 60 Minutes, Administer entire volume within 60 minutes or less., ONCE, 1 dose, On [place] 01/11/25 at 1715 New Bag 01/11/2025 4:40 PM EST 1,000 mL 1000 mL/hr documented in this encounter Active and Recently Administered Medications Times are shown in EST. Scheduled Medication Order 01/09/2025 01/10/2025 01/11/2025 metoprolol succinate XL (toPROL XL) tab 25 mg (COMPLETED) 25 mg, Oral, ONCE, On [place] 01/11/25 at 1715, For 1 dose, Hold for HR less than 60 or SBP below 100 and notify service if dose is held This med should NOT be Crushed or Chewed. 1732 (Given - Provid er: Jonna Bustillos LPN) NSS 0.9% 1,000 mL bolus infusion (COMPLETED) Intravenous, at 1,000 mL/hr Administer over 60 Minutes, Administer entire volume within 60 minutes or less., ONCE, 1 dose, On [place] 01/11/25 at 1715 1640 (New Bag - Prov ider: Jonna Bustillos LPN)1804 (Stopped - Provider: Bryon Cowan RN) documented in this encounter Advance Directives * Full Code (Latest Code Status on File) Date Activated Date Inactivated Comments 02/03/2023 6:45 [...] Discussed due to patient's condition Care Teams Quality Assistant Relationship Specialty Start Date End Date Jess Hinojosa DO [address] [place] [address] PCP - General Family Medicine 07/05/20 documented as of this encounter"
--- OUTSIDE RECORDS SUMMARY | 2025-03-24 17:07 | External Medical Summary ---
Author Name Unknown Address Unknown Organization [id number]:LABORATORY [facility] - [address] [place] [id number] Laboratory Report Ordering Provider Test Date Status MICHAEL LIU 01/11/2025 16:37:51 Final Observation Date Value Abnormality Reference (Units ) Status Troponin T 01/11/2025 16:37:51 <6 <=22 (ng/ L) Final Performing Location LABORATORY [facility] - [facility] [address]
--- OUTSIDE RECORDS SUMMARY | 2025-03-24 17:07 | External Medical Summary | Summary of Care ---
Author Name Unknown Organization [facility] Address [address] [place] [address] Phone [phone] Care Team Providers Care Wheel Fitter Name Role Phone Jess Hinojosa DO Primary Care Provider [phone] Reason for Visit * Reason Onset Date Comments Patient Instructions 01/12/2025 Encounter Details Date Type Department Care Team (Late st Contact Info) Description 01/12/2025 Telephone Cardiology [facility] [address] [place] [address] Óscar Pina [address] [place] [address] Patient Instructions Allergies Active Allergy Reactions Criticality Noted Date Comments Doxycycline Hives High 08/07/2021 Rash all over body Sumatriptan Neuro complications (Please comment) 09/19/2020 Severe muscle pain, increased migraine. documented as of this encounter (statuses as of 01/30/2025) Medications Rizatriptan Benzoate (MAXALT) 10 MG TabletIndication s:Migraine variant Take 1 Tab by mouth as needed for Migraine. at onset of headache, may repeat every 2 hours up to 2 times. Up to 3 tablets in 24 hours 20 Tab 3 05/31/20 20 Active Albuterol Sulfate HFA 108 (90 Base) MCG/ACT Inhalation Aerosol SolutionIndicati ons:Acute bronchospasm Inhale 2 Puffs by mouth every 4 hours as needed for Wheezing. 18 g 3 08/05/20 21 Active Simethicone 80 MG Oral Tablet Chewable (Mylicon) Take 1 Tablet by mouth every 6 hours as needed for Gas. 30 Tablet 02/05/20 23 Active Acetaminophen 325 MG Oral Tablet (Tylenol) Take 3 Tablets by mouth every 6 hours. 30 Tablet 02/05/20 23 Active Pantoprazole Sodium 40 MG Oral Tablet Delayed Release (Protonix) Take 1 Tablet by mouth in the morning. 90 Tablet 3 06/01/20 24 Active Metoprolol Succinate ER 25 MG Oral Tablet Extended Release 24 Hour (toPROL XL) Take 1 Tablet by mouth in the morning and 1 Tablet before bedtime. 30 Tablet 01/11/20 25 025 Discontinued documented as of this encounter (statuses as of 01/30/2025) Active Problems Problem Noted Date Diagnosed Date [...] as of this encounter (statuses as of 01/30/2025) Resolved Problems Problem Noted Date Diagnosed Date [...] as of this encounter (statuses as of 01/30/2025) Immunizations Name Administration Dates Next Due COVID-19 mRNA, LNP-s, No Pre serve, 2-Dose Series (Lumiata) 09/15/2021,12/03/2020,11/09/2020 Covid-19, Mrna, Lnp-s, Pf, B ivalent, 30 Mcg, IM, 12 yrs and above (Pfizer) 10/20/2022 DTP/HIB (Tetramune) 1994,1994,1993 DTaP Dipth/Tet/Acell Pertussis (Infanrix), Peds 05/09/1999,12/15/1995 HPV Vaccine, 9-Valent 05/06/2023 Haemophilius B (HIB), unspecified 05/26/1995 Hepatitis B Vaccine 1994,1994,1993 Hepatitis B, 0-19 yrs 03/21/2013 IPV - Polio Virus Vaccine (Inact) 05/09/1999 MMR - Measles/Mumps/Rubella Vaccine 05/09/1999,0 05/26/1995 Meningococcal Conjugate Vacc ine (Menactra/Menveo) 11/20/2008 Meningococcal MCV4O Conjugat e Vaccine (Menveo) 05/06/2023 OPV - Polio Virus Vaccine (Oral) 12/15/1995,05/23,1994 PPD 06/01/2024, 3,05/06/2023,05/31,12/10/2017,12/06/2012 Seasonal Influenza Vac., MDV , IM, 0.5 mL (Fluzone) 08/18/2014,11/25/2011,10/16/2009,10/10 Seasonal Influenza, PF, 6 M & above, IM , (FluLaval or Fluzone) 08/20/2023,07/28/2022 Seasonal Influenza, Quadriva lent, No Preserve, IM 09/22/2019,09/09/2017 Seasonal Influenza, Trivalen t, (IIV3), PF, (Fluzone) 09/11/2024 TB [place] Test 02/15/1995 TDAP (age 10 and older)(Boostrix) 12/27/2019, Varicella Vaccine (Chicken Pox) 11/20/2008,05/26 documented as of this encounter Social History [...] No 06/01/2024 Does the household have a [facility] income? 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 Not on file Not on file Not on file documented as of this encounter Functional Status * Are you deaf or do you have serious difficulty hearing? Answer Date of Assessment Author No 02/04/2023 3:15 PM Fernando Hopson RN * Are you blind or do you have serious difficulty seeing, even when wearing glasses? Answer Date of Assessment Author No 02/04/2023 3:15 PM Fernando Hopson RN * Do you have serious difficulty [...] Entry Date Author No 02/04/2023 3:15 PM EDT Fernando Granados RN documented in this encounter Miscellaneous Notes * Addendum Note - Elsa Sofia RN - 01/30/2025 10:10 AM EDTAddended by: LESA SOFIA on: 01/30/2025 10:10 AM Modules accepted: Orders * Telephone Encounter - Elsa Sofia RN - 01/30/2025 10:09 AM EDT Called and spoke with patient. Patient states he feels fine post procedure. Just a little discomfort at the incision site. Elsa Sofia RN 01/30/2025 10:10 AM * Telephone Encounter - Elsa Sofia RN - 01/25/2025 11:06 AM EST Called and spoke with patient. Patient aware of instructions and procedure time. Denies any recent illnesses. Elsa Sofia RN 01/25/2025 11:07 AM documented in this encounter Plan of Treatment Upcoming Encounters Date Type Department Care Team (Late st Contact Info) Description 05/01/2025 1:30 PM EDT Cardiac Studies [facility] Studies [facility] [place] [address] [place] [address] [place], E[place] [address] [place] [facility] [address] 05/01/2025 2:00 PM EDT Office Visit Cardiology [facility] [place] [address] [facility], [place] [id number] Leela Finley CRNP [address] [facility], [place] [id number] 08/23/2025 3:30 PM EDT Cardiac Studies Cardiac Studies [facility] [place] [address] [place] [address] [place], [facility] [address] [facility], [place] [id number] 08/23/2025 4:00 PM EDT Office Visit Cardiology [facility] [place] [address] [place] [facility] [place] [address] Óscar Pina DO [address] [place] [id number] Scheduled Orders Name Type Priority Associated Diagnoses Orde r Schedule EKG EKG Routine SVT (supraventricular tachycardia) (HCC) Expected: 01/31/2025 (Approximate), Expires: 08/02/2025 Health Maintenance Due Date Last Done Comments [...] this encounter Medical Devices Implanted Type Area Bradder Device Identifier Shelf Expiration Date Model / Serial / Lot System Vascular 612fr Closure Venous Vascade Mvp - [id number] Implanted:Qty: 4 on 01/26/2025 by Óscar Pina DO at [facility] 12/15/2026 [id number] / / [id number] documented as of this encounter Visit Diagnoses Diagnosis SVT (supraventricular tachycardia) (HCC)- Primary Other specified cardiac dysrhythmias documented in this encounter Advance Directives * [...] Discussed due to patient's condition Care Teams Wheel Fitter Relationship Specialty Start Date End Date Jess Hinojosa DO [address] [place] [address] PCP - General Family Medicine 07/05/20 documented as of this encounter
--- OUTSIDE RECORDS SUMMARY | 2025-03-24 17:07 | External Medical Summary ---
Author Name Unknown Address Unknown Organization [id number]:[facility] - [address] [place] [address] Laboratory Report Ordering Provider Test Date Status ANAND BENJAMIN 01/26/2025 07:26:07 Final Observation Date Value Abnormality Reference (Units ) Status WBC, Total 01/26/2025 07:26:07 7.23 4.00-10.80 (K/uL) Final RBC 01/26/2025 07:26:07 4.96 4.50-5.25 (M/uL) Final Hemoglobin 01/26/2025 07:26:07 13.7 Below low normal 14.0-16.8 (g/dL) Final HCT 01/26/2025 07:26:07 43.7 40.0-48.4 (%) Final MCV 01/26/2025 07:26:07 88.1 82.0-99.5 (fL) Final MCH 01/26/2025 07:26:07 27.6 27.0-34.0 (pg) Final MCHC 01/26/2025 07:26:07 31.4 32.0-36.0 (g/dL) Final RDW 01/26/2025 07:26:07 13.2 11.5-15.5 (%) Final Platelets 01/26/2025 07:26:07 217 140-400 (K/uL) Final MPV 01/26/2025 07:26:07 11.6 6.6-11.1 (fL) Final Nucleated erythrocytes/100 leukocytes [Ratio] in Blood by Automated count 01/26/2025 07:26:07 0 <=0 (/100 WBCs) Final Performing Location [facility] - [address] [place] [address]
--- OUTSIDE RECORDS SUMMARY | 2025-03-24 17:07 | External Medical Summary | Summary of Care ---
Author Name Unknown Organization [facility] Address [address] [place] [address] Phone [phone] Care Team Providers Care Business Solution Analyst Name Role Phone Jess Hinojosa DO Primary Care Provider [phone] Reason for Visit * Reason Onset Date Comments Patient Instructions 01/12/2025 Encounter Details Date Type Department Care Team (Late st Contact Info) Description 01/12/2025 Telephone Cardiology [facility] [address] [place] [address] Óscar Pina [address] [place] [address] Patient Instructions Allergies Active Allergy Reactions Criticality Noted Date Comments Doxycycline Hives High 08/07/2021 Rash all over body Sumatriptan Neuro complications (Please comment) 09/19/2020 Severe muscle pain, increased migraine. documented as of this encounter (statuses as of 01/25/2025) Medications Rizatriptan Benzoate (MAXALT) 10 MG TabletIndication [...] as of this encounter (statuses as of 01/25/2025) Active Problems Problem Noted Date Diagnosed Date [...] as of this encounter (statuses as of 01/25/2025) Resolved Problems Problem Noted Date Diagnosed Date [...] as of this encounter (statuses as of 01/25/2025) Immunizations Name Administration Dates Next Due COVID-19 mRNA, LNP-s, No Pre serve, 2-Dose Series (Aplica) 09/15/2021,12/03/2020,11/09/2020 Covid-19, Mrna, Lnp-s, Pf, B ivalent, 30 Mcg, IM, 12 yrs and above (Aplica) 10/20/2022 DTP/HIB (Tetramune) 1994,1994,1993 DTaP Dipth/Tet/Acell Pertussis (Infanrix), Peds 05/09/1999,12/15/1995 HPV Vaccine, 9-Valent 05/06/2023 Haemophilius B (HIB), unspecified 05/26/1995 Hepatitis B Vaccine 1994,1994,1993 Hepatitis B, 0-19 yrs 03/21/2013 IPV - Polio Virus Vaccine (Inact) 05/09/1999 MMR - Measles/Mumps/Rubella Vaccine 05/09/1999,0 05/26/1995 Meningococcal Conjugate Vacc ine (Menactra/Menveo) 11/20/2008 Meningococcal MCV4O Conjugat e Vaccine (Menveo) 05/06/2023 OPV - Polio Virus Vaccine (Oral) 12/15/1995,05/23,1994 PPD 06/01/2024,,05/06/2023,05/31,12/10/2017,12/06/2012 Seasonal Influenza Vac., MDV , [...] 06/01/2024 Does the household have a re lar source of income? 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 Not on file Not on file [...] documented in this encounter Miscellaneous Notes * Telephone Encounter - Elsa Calderon RN - 01/25/2025 11:06 AM EST Called and spoke with patient. Patient aware of instructions and procedure time. Denies any recent illnesses. Elsa Calderon RN 01/25/2025 11:07 AM documented in this encounter Plan of Treatment Upcoming Encounters Date Type Department Care Team (Latest Contact Info) Description 01/26/2025 7:00 AM EST Hospital Encounter CRS Waiting [facility], Cardiac Recovery Suite Waiting Unit, [address] [facility] [place] [address] Óscar Pina, [address] [facility] [place] [phone] 01/26/2025 7:00 AM EST - 01/26/2025 9:00 AM EST Surgery CRS Waiting [facility] [place], Cardiac Recovery Suite Waiting Unit, H [address] [place] [facility] [place] [phone] Óscar Pina DO [address] [place] [facility] [place] [phone] SVT EPS AND CATHETER ABLATION 01/26/2025 7:00 AM EST Office Visit Cardiology [facility] [place] [address] [place] [address] [place], Cardiac Recovery [facility] [address] [place] [facility] [place] [address] 08/23/2025 3:30 PM EDT Cardiac Studies Cardiac Studies [facility], [place] [address] [facility], [place] [id number] [place], Ekg [address] [place], [place] [id number] 08/23/2025 4:00 PM EDT Office Visit Cardiology [facility] [address] [facility], [place] [id number] Óscar Pina, [address] [place] [facility] [address] Scheduled Procedures Name Priority Associated Diagnoses Date/Ti [...] Not on filedocumented as of this encounter Advance Directives * Full Code [...] Discussed due to patient's condition Care Teams Business Solution Analyst Relationship Specialty Start Date End Date Jess Hinojosa DO [address] [place] [address] PCP - General Family Medicine 07/05/20 documented as of this encounter
--- OUTSIDE RECORDS SUMMARY | 2025-03-24 17:07 | External Medical Summary | Summary of Care ---
Author Name Unknown Organization [facility] Address [address] [place] [address] Phone [phone] Care Team Providers Care Shipping Inspector Name Role Phone Jess Hinojosa DO Primary Care Provider [phone] Reason for Referral * Evaluate & Treat - Unlimited Visits (Within 10 days (routine)) - Pending Review Specialty Diagnoses / Procedures Referred By Nguyễn herrera Referred To Contact Sleep Medicine / Sleep Disorders Diagnoses S/P ablation operation for arrhythmia SVT (supraventricular tachycardia) (HCC) Samina Blakely CRNP [address] [place] [address] Phone: tel: fax: Referral ID Status Reason Start Date Expiration Date Visits Requested Visits Authorized [id number] Pending Review Specialty Services Required 01/26/2025 2 2 Question Answer Referral Priority Within 10 days (routine) Where should this appointment be scheduled? [facility] SLEEP MED ADULT REFERRAL Sleep Apnea Testing and Management Does the patient snore and/or gasp at night or has been told they stop breathing at night? Unknown Comments Discharge Order Reason for Visit * Auth/Cert Specialty Diagnoses / Procedures Referred By Nguyễn herrera Referred To Contact Diagnoses SVT (supraventricular tachycardia) (HCC) SVT (supraventricular tachycardia) (HCC) [I47.10] Procedures ELECTROPHYSIOLOGY EVAL & ABLATE SVT SVT EPS AND CATHETER ABLATION Óscar Pina DO [address] [place] [address] Phone: tel: fax: [facility], Cardiac Recovery Suite Waiting Unit, [address] [place] [address] Phone: tel: Referral ID Status Reason Start Date Expiration Date Visits Re quested Visits Authorized [id number] Encounter Details Date Type Department Care Team (Latest Contact Info) Description 01/26/2025 6:59 AM EST - 01/26/2025 2:00 PM EST Hospital Encounter [facility], Cardiac Recovery Suite Waiting Unit, [address] [place] [address] Óscar Pina, DO [address] [place] [address] Discharge Disposition: Home - Self Care Allergies Active Allergy Reactions Criticality Noted Date Comments Doxycycline Hives High 08/07/2021 Rash all over body Sumatriptan Neuro complications (Please comment) 09/19/2020 Severe muscle pain, increased migraine. documented as of this encounter (statuses as of 01/27/2025) Medications Rizatriptan Benzoate (MAXALT) 10 MG TabletIndication [...] 1 Tablet before bedtime. 30 Tablet 11 01/27/20 25 Active Metoprolol Succinate ER 25 MG Oral Tablet Extended Release 24 Hour (toPROL XL) Take 1 Tablet by mouth in the morning and 1 Tablet before bedtime. 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 [...] as of this encounter (statuses as of 01/27/2025) Resolved Problems Problem Noted Date Diagnosed Date [...] as of this encounter (statuses as of 01/27/2025) Immunizations Name Administration Dates Next Due COVID-19 mRNA, LNP-s, No Pre serve, 2-Dose Series ([employer]) 09/15/2021,12/03/2020,11/09/2020 Covid-19, Mrna, Lnp-s, Pf, B ivalent, 30 Mcg, IM, 12 yrs and above ([employer]) 10/20/2022 HPV Vaccine, 9-Valent 05/06/2023 Hepatitis B, 0-19 yrs 03/21/2013 Meningococcal Conjugate Vacc ine (Menactra/Menveo) 11/20/2008 Meningococcal MCV4O Conjugat e Vaccine (Menveo) 05/06/2023 PPD 06/01/2024, 3,05/06/2023,05/31,12/10/2017,12/06/2012 Seasonal Influenza Vac., MDV [...] 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 Not on file Not on file Not on file documented as of this encounter Last Filed Vital Signs Vital Sign Reading Time Taken Comments Blood Pressure 117/80 01/26/2025 1:40 PM EST Pulse 100 01/26/2025 1:40 PM EST Temperature 36.5 °C (97.7 °F) 01/26/2025 10:[address] Respiratory Rate 22 01/26/2025 1:40 PM EST Oxygen Saturation 99% 01/26/2025 1:40 PM EST Inhaled Oxygen Concentration - - Weight 104.3 kg (230 lb) 01/26/2025 7:15 AM EST Height 177.8 cm (5' 10") 01/26/2025 7:15 AM EST Body Mass Index 33 01/26/2025 7:15 AM EST documented in this encounter Functional [...] Fernando Hopson RN * Do you have difficulty dressing [...] 02/04/2023 3:15 PM Fernando Hopson RN documented as of this encounter Mental Status * Because of a physical, mental, or emotional condition, do you have serious difficulty concentrating, remembering, or making decisions? (5 years old or older) Answer Entry Date Author No 02/04/2023 3:15 PM Fernando Hopson RN documented in this encounter Discharge Instructions * Discharge Instr - AVS* Samina Blakely CRNP - 01/26/2025 7:33 AM EST CARDIAC RECOVERY SUITE Discharge Date: 01/26/2025 Check your Patient Education Brochure for further information. Please contact your physician, Dr. Pina of the Department of Cardiology at [phone], during business hours for any questions or testresults. For after-hour emergencies call [phone] and have your doctor paged. Scheduling Services is available daily between the hours of 8:00 a.m and 9:00 p.m. by calling . The information below provides you with the instructions and the list of medications you need to betaking following discharge from the hospital. If you have any questions, please ask before leaving.Please carry this letter with you when you see your doctor in the clinic. If you have questions, you can reach us at the numbers above. Diet: heart healthy diet Progress to prescribed diet as tolerated. If nausea should occur, have clear liquids only until soft foods can be tolerated. Activity: A responsible adult must be with the patient for 24 hours after surgery. Rest today and tomorrow, and then increase activity as tolerated. DO NOT operate any appliances and/or machinery or sign legal documents for 24 hours. Special Instructions: Activity: Do not drive for 2 days You may be up walking around the house today but you should stay home No strenuous lifting or pulling for at least 1 weeks. A responsible adult mist be with the you for 24 hours after surgery DO NOT operate any appliances and/or machinery or sign legal documents for 24 hours Special Instructions: Leg Puncture Site Care: You may shower, but do not take any baths, go in a hot tub or swim for 7 days. The holes in your leg veins are still healing and may be sore for a week. This is normal If you have sudden pain or swelling or bleeding, call 911 and hold pressure on the area If you notice worsening pain or swelling in the area that is not relieved by Tylenol or if you develop a fever over 101 degrees F you should call your grinder set up operator If you have questions or are concerned about how your leg incisions are healing, call the doctor who did the procedure or [phone] Date you may return to work or school: N/A Follow up with Dr. Pina in 8-12 weeks with EKG prior to appointment. We have requested an appointment, if you do not hear from scheduling within a few days, please call the office to schedule. documented in this encounter H&P Notes * Samina Blakely CRNP - 01/26/2025 7:26 AM EST HISTORY & PHYSICAL INTERVAL NOTE - Cardiology Service [address] [address] History and Physical Update: Name: Hernan Humphreys Location: CATH/Cath Date: 01/26/2025 Time: 7:27 AM DATE OF HISTORY AND PHYSICAL: 01/04/2025 REFERRED BY: Dr. Pina Chief Complaint: SVT, here for EPS and SVT ablation I have reviewed the H&P previously performed and examined the patient today. There are no new findings noted. Last dose of metoprolol was 01/22/2025 PM dose. Had last brief episode of symptomatic SVT on 01/23/2025. ROS Constitutional: Denies fevers, chills, sweats Cardiac: denies chest pain, dyspnea Pulmonary: Denies cough GI/Abd: Denies abdominal pain or discomfort, n/v/d, constipation Skin: denies wounds, rash Neurologic: Denies headaches, dizziness : Denies dysuria, hematuria or hematochezia PHYSICAL EXAMINATION BP 131/75 | Pulse 74 | Temp 36.3 °C (97.3 °F) (Tympanic) | Resp 21 | Ht 1.778 m (5' 10") | Wt 104.3 kg (230 lb) | SpO2 99% | BMI 33.00 kg/m² | BSA 2.27 m² Body mass index is 33 kg/m². Constitutional: no acute distress HEENT: normocephalic Eyes: PERRLA Neck: supple, normal range of motion, no discernable JVD, normal carotid pulses without bruits CV: regular rate and rhythm, no murmur, no gallops or rub, S1 and S2 normal, PMI is normal, Pulses: right radial 2+, left radial 2+, right dorsalis pedis 2+, left dorsalis pedis 2+, Right posterior tibial 2+, left posterior tibial 2+, Right femoral pulse 2+ No bruit to auscultation, left femoral pulse No bruit to auscultation2+ capillary refill less than 3 seconds no Edema Chest: normal respiratory effort, lungs clear to auscultation Abdomen: normal: soft, bowel sounds normal, no masses, tenderness or organomegaly Extremities: no clubbing, cyanosis, or edema, otherwise grossly normal, warm, and dry Skin: warm, dry, intact, Neuro: alert, oriented to person, place, and time, no focal deficits Psych: calm and cooperative Labs reviewed as indicated below: CBC, BMP pending. Last dose of metoprolol was 01/22/2025 PM dose. Had last brief episode of symptomatic SVT on 01/23/2025. Updated CBC, BMP pending. Addendum: Labs largely unremarkable. Latest Reference Range & Units 01/26/25 07:26 SODIUM 135 - 146 mmol/L 141 POTASSIUM 3.5 - 5.1 mmol/L 4.4 CHLORIDE 98 - 107 mmol/L 106 CO2 22 - 32 mmol/L 25 BUN 6 - 20 mg/dL 13 CREATININE 0.6 - 1.2 mg/dL 0.7 EGFR >=60 mL/min >90 ANION GAP 7 - 15 mmol/L 10 GLUCOSE 70 - 120 mg/dL 85 CALCIUM 8.4 - 10.2 mg/dL 8.8 CBC Rpt ! WBC 4.00 - 10.80 K/uL 7.23 RBC 4.50 - 5.25 M/uL 4.96 HGB 14.0 - 16.8 g/dL 13.7 (L) HCT 40.0 - 48.4 % 43.7 MCV 82.0 - 99.5 fL 88.1 MCH 27.0 - 34.0 pg 27.6 MCHC 32.0 - 36.0 g/dL 31.4 RDW 11.5 - 15.5 % 13.2 PLT 140 - 400 K/uL 217 MPV 6.6 - 11.1 fL 11.6 !: Data is abnormal (L): Data is abnormally low Rpt: View report in Results Review for more information Cosigned by Óscar Pina DO at 01/26/2025 5:18 PM EST Associated attestation - Óscar Pina DO - 01/26/2025 5:18 PM EST I have reviewed the advanced practitioner's documentation on the date of service referenced in note, and I agree with, and take responsibility for the plan of care. I spent a total of 85 minutes coordinating, documenting, and providing care for this patient excluding time spent in the performance of separately billed services or time spent by another provider/QHP. This is a pleasant 29-year-old gentleman with symptoms consistent with pSVT. We discussed the pathophysiology of SVT and the three common types of SVT which includes AVNRT, AVRT, and AT. 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 We discussed that the treatment options include medical management, ablation therapy, as well as watchful waiting at times depending on symptoms. He has interested in an EP study and possible ablation of SVT which I recommend as well. The procedure of EP study and possible ablation for SVT was explained to the patient including the operation, risks, and potential benefits. Risks include (but are not limited to) vascular injury requiring intervention or surgery to correct, bleeding, allergic reaction to or kidney damage from contrast (if used), cardiac perforation potentially leading to tamponade, phrenic nerve injury, heart block requiring pacemaker implantation, and the unlikely risks of stroke, heart attack and . The option of not having the operation done and the risks of that alternative was discussed as well. Allquestions were answered. After reviewing all of this information, the decision was made to proceed with EP study and possible ablation for SVT. Óscar Pina DO * Leela Finley CRNP - 01/25/2025 11:11 AM EST This note has been copy and pasted from an office visit with Dr. Pina of Electrophysiology on 01/04/25. Electrophysiology Outpatient Consultation New Hernan Humphreys is a 29 year old male referred by Ce Martini DO who is seen in consultation for SVT HPI: Hernan Humphreys is a pleasant 29 year old male with PMHx as bellow, reviewed by me, and pertinent for: -IBS -asthma -BMI 34.8 -symptoms of PSVT He has a longstanding history of tachy palpitations that are episodic. He has had episodes fast enough to lose consciousness in the more distant past. He recently had a recurrence where he felt very lousy with a feeling of impending doom and a heart rate too fast to count for which he presented to the emergency department but it stop the before he got there. He presents today with his to discuss management options. He is otherwise in his usual state of health. He denies chest discomfort, MEI, PND, orthopnea, lightheadedness, dizziness, and syncope. Further targeted ROS otherwise unremarkable. Past Medical History Past Medical History: Diagnosis Date asthma 04/2005 Asthma Chronic motor or vocal tic disorder GERD (gastroesophageal reflux disease) Hx of migraines IBS (irritable bowel syndrome) PUD (peptic ulcer disease) Tourette syndrome Problem List Patient Active Problem List Diagnosis Other allergic [...] adult exam SVT (supraventricular tachycardia) (HCC) Past Surgical History Past Surgical History: Procedure Laterality Date ANESTH, HIP JOINT SURGERY, OPEN Left CAM lesions femoral head/acetab. torn cartilage. @Dr Alatorre. COLONOSCOPY, DIAGNOSTIC (RECTUM) N/A 06/25/2021 [facility], EGD, Lelo Grade III reflux esopahgitis, otherwise normal / no specimens collected EGD, FLEXIBLE, DIAGNOSTIC N/A 06/25/2021 [facility], EGD, Normal mucosa, normal exam / biopsies showed no evidence of microscopic inflammation EGD, FLEXIBLE, DIAGNOSTIC N/A 07/22/2022 ESOPHAGOGASTRODUODENOSCOPY (EGD), FLEXIBLE, TRANSORAL, DIAGNOSTIC performed by Ishan Navarro DO at ENDOSCOPY [facility] EGD, FLEXIBLE, DIAGNOSTIC N/A 02/03/2023 ESOPHAGOGASTRODUODENOSCOPY (EGD), FLEXIBLE, TRANSORAL, DIAGNOSTIC performed by Maggie Rey MD at OR [facility] ESOPHAGOGASTRIC FUNDOPLASTY N/A 02/03/2023 LAPAROSCOPIC ESOPHAGOGASTRIC FUNDOPLASTY FEI performed by Maggie Rey MD at [facility] PARAESOPHAGEAL HERNIA REPAIR, LAP W/O MESH N/A 02/03/2023 LAPAROSCOPIC PARAESOPHAGEAL HERNIA REPAIR WO/ MESH performed by Maggie Rey MD at [facility] REMOVAL OF APPENDIX 09/28/2005 Appendectomy Family History Family History Problem Relation Name Age of Onset Heart Disorder Mother A fib? Irritable Bowel Syndrome Mother Breast Cancer Mother 60 negative gene testing Allergies Father eggs, PCN, dust mites Heart attack Father 69 patient did CPR. Heart Disorder Grandmother (Maternal) [place] Breast Cancer Grandmother (Maternal) Cora Parkinson White syndrome Grandmother (Maternal) Heart Disorder Grandfather (Paternal) 35 [place] Crohn's disease No significant family history Social History Social History Tobacco Use Smoking status: Former Current packs/day: 0.00 Average packs/day: 0.3 packs/day for 2.0 years (0.5 ttl pk-yrs) Types: Cigarettes Start date: 10/22/2010 Quit date: 10/22/2012 Years since quittin.2 Smokeless tobacco: Former Types: Chew, Snuff Quit date: 2020 Tobacco comments: no passive smoke at home Vaping Use Vaping status: Never Used Substance Use Topics Alcohol use: Yes Comment: social Drug use: No Allergies Review of patient's allergies indicates: Allergen Reactions Doxycycline Hives Rash all over body Sumatriptan Neuro complications (Please comment) Severe muscle pain, increased migraine. Current Medications Current Outpatient Medications Medication Sig Dispense Refill Rizatriptan Benzoate (MAXALT) 10 MG Tablet Take 1 Tab by mouth as needed for Migraine. at onset of headache, may repeat every 2 hours up to 2 times. Up to 3 tablets in 24 hours 20 Tab 3 Albuterol Sulfate HFA 108 (90 Base) MCG/ACT Inhalation Aerosol Solution Inhale 2 Puffs by mouth every 4 hours as needed for Wheezing. 18 g 3 Simethicone 80 MG Oral Tablet Chewable (Mylicon) Take 1 Tablet by mouth every 6 hours as needed forGas. 30 Tablet 0 Acetaminophen 325 MG Oral Tablet (Tylenol) Take 3 Tablets by mouth every 6 hours. 30 Tablet 0 Pantoprazole Sodium 40 MG Oral Tablet Delayed Release (Protonix) Take 1 Tablet by mouth in the morning. 90 Tablet 3 No current facility-administered medications for this visit. ROS: Per HPI PHYSICAL EXAMINATION BP 132/70 | Pulse 78 | Ht 1.778 m (5' 10") | Wt 110 kg (242 lb 8 oz) | SpO2 98% | BMI 34.80 kg/m² | BSA 2.33 m² Body mass index is 34.8 kg/m². General:no acute distress HEENT:normal: normocephalic, atraumatic EYES:sclera and conjunctiva normal NECK:normal range of motion CARDIO:normal rate and rhythm, no murmur, gallops or rub LUNGS:normal respiratory effort, lungs clear to auscultation and percussion ABDOMEN:soft EXTREMITIES:no clubbing, cyanosis, or edema, otherwise grossly normal, warm, and dry SKIN:warm, dry, intact NEURO:alert, oriented to person, place, and time, gait normal PSYCH:normal mood and affect, judgement normal Laboratory Data Review: Most recent EKG on 12/26/2024 : NSR, normal EKG SVT (supraventricular tachycardia) (HCC) (Primary) - STANDARD CASE REQUEST Follow-up: Return in about 6 months (around 07/04/2025). | Check-out note: EP study and SVT ablationwith me Follow up wit me in 6 months after with an EKG Impression: This is a pleasant 29-year-old gentleman with symptoms consistent with pSVT. We discussed the pathophysiology of SVT and the three common types of SVT which includes AVNRT, AVRT, and AT. 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 We discussed that the treatment options include medical management, ablation therapy, as well as watchful waiting at times depending on symptoms. He has interested in an EP study and possible ablation of SVT which I recommend as well. Plan: -EP study and SVT ablation with me -followup with me after ablation in clinic with an EKG Reach out to me with any questions or concerns in the meantime Óscar Pina DO Cardiology [place] [address] 01/04/2025 Cosigned by Óscar Pina DO at 01/25/2025 6:49 PM EST documented in this encounter Procedure Notes * Óscar Pina DO - 01/26/2025 2:00 PM EST Electrophysiology Procedure Note [facility] Name: Hernan Humphreys Sex: male Age: [age] year old Procedure date: 01/26/2025 Procedure: EP study Femoral vein access x4 under direct ultrasound visualization and guidance Four catheter EP study on and off isoproterenol infusion There was no evidence of dual AV node physiology There was no evidence of an accessory pathway No SVT was inducible on or off isoproterenol Catheters and sheaths were removed from the body and hemostasis was achieved with manual compression and Vascade MVPx4 Final rhythm: Normal sinus rhythm with normal intervals. Indication: This is a pleasant 29-year-old gentleman with symptoms consistent with pSVT. We discussed the pathophysiology of SVT and the three common types of SVT which includes AVNRT, AVRT, and AT. 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 We discussed that the treatment options include medical management, ablation therapy, as well as watchful waiting at times depending on symptoms. He has interested in an EP study and possible ablation of SVT which I recommend as well. The procedure of EP study and possible ablation for SVT was explained to the patient including the operation, risks, and potential benefits. Risks include (but are not limited to) vascular injury requiring intervention or surgery to correct, bleeding, allergic reaction to or kidney damage from contrast (if used), cardiac perforation potentially leading to tamponade, phrenic nerve injury, heart block requiring pacemaker implantation, and the unlikely risks of stroke, heart attack and . The option of not having the operation done and the risks of that alternative was discussed as well. Allquestions were answered. After reviewing all of this information, the decision was made to proceed with EP study and possible ablation for SVT. Description of Procedure: After obtaining informed consent, the patient was brought to the EP lab in a fasting state. Immediately prior to the procedure, a time-out was performed to verify the correct patient and procedure. Sedation was initiated and maintained by nurse driven protocol. Trained observer: Ana Lilia Gordon RN A total of 10 mg of Versed and 300 mcg of Fentanyl were given. The sedation start time was 833. The sedation stop time was 1002. The patient was then prepared and draped in the usual sterile fashion. The femoral site was locallyanesthetized and 4 venous sheaths (7Fr x1, 6Fr x2, and SR-0 on the right) were placed using the modified Seldinger tecnhique with a 5 Fr micropuncture kit under direct ultrasound guidance and visualization of the vessel. With routine hemodynamic and electrocardiographic monitoring, electrophysiology catheters were advanced under fluoroscopic guidance to the high right atrium, His bundle, RV apex,and coronary sinus. Intracardiac electrocardiograms and conduction were measured at rest and after isoproterenol administration. There was no inducible SVT on or off isoproterenol. The risk of VT/VF was not formally assessed. There was no evidence of dual AV kiera physiology on or off isoproterenol. There was no evidence of anaccessory pathway. At the conclusion of the case, the catheters were removed from the body. Hemostasis was obtained using manual compression and Vascade MVP x4. A dressing was then applied to the groin access site. The patient was transferred to the recovery area in good condition. EBL: minimal Interval (ms) Baseline Isoproterenol CL 838 586 P-R 114 112 QRS 94 74 QT 354 310 AH 68 HV 35 Rhythm sinus sinus AV conduction (ms) Baseline AVBCL 300 VABCL 400 AH 68 AVNERP 450/<200 Retrograde ERP 450/<190 Recommendation: Two hours bed rest Probable discharge to home later today Continue metoprolol Sleep study for ALANA based on history of snoring and witnessed apnea by significant other Óscar Pina DO 01/26/2025 5:18 PM documented in this encounter Miscellaneous Notes * Progress Notes - Non-Billable - Samina Blakely CRNP - 01/26/2025 1:22 PM EST Home sleep med referral placed per Dr. Pina. * Ancillary Progress Note - Henry Diez RCIS - 01/26/2025 10:04 AM EST [facility] [address] Ancillary Progress Note Patient Name: Hernan Humphreys Date: 01/26/2025 4 sheaths were pulled post Electrophysiology procedure. 6, 6, 7, and 8.5 Fr sheath pulled post procedure from right femoral vein by Dr. Óscar Pina with 4vascade's deployed and Manual pressure held for 10 minutes . Hemostasis was obtained, with no hematoma noted. Sterile Gauze and Tegaderm dressing applied to site. Instructions were given to the patient. Report given to CRS staff, Jessi Gautam LPN. documented in this encounter Plan of Treatment Upcoming Encounters Date Type Department Care Team (Late st Contact Info) Description 05/01/2025 1:30 PM EDT Cardiac Studies [facility], [place] [address] [place] [address] [place], E[facility] [address] [place] [address] 05/01/2025 2:00 PM EDT Office Visit [facility]iology [facility], [place] [address] [place] [address] Leela Finley CRNP [address] [place] [address] 08/23/2025 3:30 PM EDT Cardiac Studies [facility], [place] [address] [place] [address] [place], Ekg [address] [place] [address] 08/23/2025 4:00 PM EDT Office Visit [facility] [place] [address] [place] [address] Óscar Pina DO [address] [place] [facility] [place] [id number] Scheduled Orders Name Type Priority Associated Diagnoses Orde r Schedule EKG EKG Routine S/P ablation operation for arrhythmia One Time for 1 Occurrences starting 01/26/2025 until 01/26/2025 EKG EKG Routine Post-operative state Perform Now for 1 Occurrences starting 01/26/2025 until 01/26/2025 Scheduled Referrals Name Type Priority Associated Diagnoses Orde r Schedule SLEEP MEDICINE REFERRAL OP Referral Within 10 days (routine) S/P ablation operation for arrhythmia SVT (supraventricular tachycardia) (HCC) Ordered: 01/26/2025 Health Maintenance Due Date Last Done Comments [...] this encounter Medical Devices Implanted Type Area Volleyball Commentator Device Identifier Shelf Expiration Date Model / Serial / Lot System Vascular 612fr Closure Venous Vascade Mvp - [id number] Implanted:Qty: 4 on 01/26/2025 by Óscar Pina DO at [facility] 12/15/2026 [id number] / / [id number] documented as of this encounter Procedures Procedure Name Priority Date/Time Associated Diagnosis Comments BASIC METABOLIC PANEL STAT 01/26/2025 7:26 AM EST CBC STAT 01/26/2025 7:26 AM EST documented in this encounter Results * BASIC METABOLIC PANEL (01/26/2025 7:26 AM EST) BUN 13 6 - 20 mg/dL 01/26/2025 8:11 AM EST [facility] CREATININE 0.7 0.6 - 1.2 mg/dL 01/26/2025 8:11 AM EST LABORATORY GM EGFR >90 >=60 mL/min 01/26/2025 8:11 AM EST [facility] Comment:eGFR is calculated b ased on the CKD-EPI 2020 equation. SODIUM 141 135 - 146 mmol/L 01/26/2025 8:11 AM EST [facility] POTASSIUM 4.4 3.5 - 5.1 mmol/L 01/26/2025 8:11 AM EST [facility] CHLORIDE 106 98 - 107 mmol/L 01/26/2025 8:11 AM EST [facility] CO2 25 22 - 32 mmol/L 01/26/2025 8:11 AM EST [facility] ANION GAP 10 7 - 15 mmol/L 01/26/2025 8:11 AM EST [facility] GLUCOSE 85 70 - 120 mg/dL 01/26/2025 8:11 AM EST [facility] CALCIUM 8.8 8.4 - 10.2 mg/dL 01/26/2025 8:11 AM EST [facility] Blood Venous blood specimen / Unknown Venipuncture / Unknown 01/26/2025 7:26 AM EST 01/26/2025 7:32 AM EST Leela SORIA LAB BLOOD ORDERABLES F inal Result [facility] [address] [place] [address] * (ABNORMAL) CBC (01/26/2025 7:26 AM EST) WBC 7.23 4.00 - 10.80 K/uL 01/26/2025 7:51 AM EST [facility] RBC 4.96 4.50 - 5.25 M/uL 01/26/2025 7:51 AM EST [facility] HGB 13.7(L) 14.0 - 16.8 g/dL 01/26/2025 7:51 AM EST [facility] HCT 43.7 40.0 - 48.4 % 01/26/2025 7:51 AM EST [facility] MCV 88.1 82.0 - 99.5 fL 01/26/2025 7:51 AM EST [facility] MCH 27.6 27.0 - 34.0 pg 01/26/2025 7:51 AM EST [facility] MCHC 31.4 32.0 - 36.0 g/dL 01/26/2025 7:51 AM EST LABORATORY C RDW 13.2 11.5 - 15.5 % 01/26/2025 7:51 AM EST [facility] PLT 217 140 - 400 K/uL 01/26/2025 7:51 AM EST LABORATORY GM MPV 11.6 6.6 - 11.1 fL 01/26/2025 7:51 AM EST LABORATORY GM nRBCs 0 <=0 /100 WBCs 01/26/2025 7:51 AM EST LABORATORY GM Blood Venous blood specimen / Unknown Venipuncture / Unknown 01/26/2025 7:26 AM EST 01/26/2025 7:32 AM EST Leela SORIA LAB BLOOD ORDERABLES F inal Result LABORATORY [facility] [address] [place] [address] documented in this encounter Visit Diagnoses Diagnosis SVT (supraventricular tachycardia) (HCC)- Primary Other specified cardiac dysrhythmias S/P ablation operation for arrhythmia Other postprocedural status Post-operative state Other postprocedural status SVT (supraventricular tachycardia) (HCC) Other specified cardiac dysrhythmias documented in this encounter Administered Medications Inactive Administered Medications - up to 3 most recent administrations Medication Order MAR Action Action Date Dose Rate Site fentaNYL (PF) inj 25 mcg 25 mcg, IV Push, PRN Pain, Moderate, Pain, Severe, Starting on Wed01/26/25 at 0745, Until Wed01/26/25 at 1144, For 4 hours, To be administered in EP Lab intra-procedure only. When given IV Push its recommended that the dose be given over 3 to 5 minutes., Intra-Op Given 01/26/2025 9:47 AM EST 25 mcg Given 01/26/2025 9:30 AM EST 25 mcg Given 01/26/2025 9:22 AM EST 25 mcg isoproterenol (Isuprel) inj 0.2 mg 0.2 mg, Intravenous, CONTINUOUS, Starting on Wed01/26/25 at 1000, Until Wed01/26/25 at 1059, For 1 hour, Add 1 mL (0.2mg) Isuprel to 100 ml. Normal saline solution. Run infusion per Dr. Pina verbal order. To be administered in EP Lab intra-procedure., Intra-Op New Bag 01/26/2025 9:14 AM EST 0.2 mg 60 m L/hr midazolam (Versed) 2 MG/2ML inj 1 mg 1 mg, IV Push, PRN Other, Inadequate sedation, Starting on Wed01/26/25 at 0745, Until Wed01/26/25 at 1144, For 4 hours, To be administered in EP Lab intra-procedure only., Intra-Op Given 01/26/2025 9:47 AM EST 1 mg Given 01/26/2025 9:30 AM EST 1 mg Given 01/26/2025 9:22 AM EST 1 mg NSS infusion Intravenous, at 25 mL/hr, CONTINUOUS, Starting on Wed01/26/25 at 0745, Until Wed01/26/25 at 1744, Pre-Op New Bag 01/26/2025 7:45 AM EST 25 mL/hr oxygen GAS Inhalation, OXYGEN, 1 dose, First dose on Wed01/26/25 at 0800, Device/Managed by: Low Flow Device, Goal SPO2 (%): 91-95, Starting Device: Nasal Cannula, Initial Flow Rate (LPM): 2, Lowest Support: Nasal Cannula: Flow 0-6 LPM. Titrate up/down by 1 LPM., Higher Support: Non-Rebreather (NRB) Mask: Minimum of 10 LPM. Titrate to maintain bag inflation., Titration Interval: Q2 minutes and as needed., Notify Provider: Other, Notify Provider [other]: If SpO2 less than 88% or NOT maintaining SpO2 greater than 92% notify physician immediately., Until awake OR SpO2 greater than 95% for 15 minutes, then Titrate O2 flow rate down to maintain SpO2 greater than 92% If SpO2 is less than 88% place patient on NRB mask at 10 LPM Oxygen On 01/26/2025 8:34 AM EST Propofol (Diprivan) 10 mg/mL (1%) bolus IV Push, To be administered in EP Lab intra-procedure. May ONLY be administered by a CREDENTIALED provider. See nursing policy 11.11.01, ONCE, 1 dose, On Wed01/26/25 at 1030, Intra-Op Given By 01/26/2025 9:42 AM EST 70 mg documented in this encounter Active and Recently Administered Medications Times are shown in EST. Scheduled Medication Order 01/24/2025 01/25/2025 01/26/2025 oxygen GAS (COMPLETED) Inhalation, OXYGEN, 1 dose, First dose on Wed01/26/25 at 0800, Device/Managed by: Low Flow Device, Goal SPO2 (%): 91-95, Starting Device: Nasal Cannula, Initial Flow Rate (LPM): 2, Lowest Support: Nasal Cannula: Flow 0-6 LPM. Titrate up/down by 1 LPM., Higher Support: Non-Rebreather (NRB) Mask: Minimum of 10 LPM. Titrate to maintain bag inflation., Titration Interval: Q2 minutes and as needed., Notify Provider: Other, Notify Provider [other]: If SpO2 less than 88% or NOT maintaining SpO2 greater than 92% notify physician immediately., Until awake OR SpO2 greater than 95% for 15 minutes, then Titrate O2 flow rate down to maintain SpO2 greater than 92% If SpO2 is less than 88% place patient on NRB mask at 10 LPM 0834 (Oxygen On - Pr ovider: Denise Gordon, RADHA) Propofol (Diprivan) 10 mg/mL (1%) bolus (COMPLETED) IV Push, To be administered in EP Lab intra-procedure. May ONLY be administered by a CREDENTIALED provider. See nursing policy 11.11.01, ONCE, 1 dose, On Wed01/26/25 at 1030, Intra-Op 0942 (Given By - Pro vider: Denise Gordon RN - Comment: given by Dr. Pina for DCC) Continuous Medication Order 01/24/2025 01/25/2025 01/26/2025 isoproterenol (Isuprel) inj 0.2 mg 0.2 mg, Intravenous, CONTINUOUS, Starting on Wed01/26/25 at 1000, Until Wed01/26/25 at 1059, For 1 hour, Add 1 mL (0.2mg) Isuprel to 100 ml. Normal saline solution. Run infusion per Dr. Pina verbal order. To be administered in EP Lab intra-procedure., Intra-Op 0914 (New Bag - Prov ider: Denise Gordon RN - Comment: 2mcg/min)0921 (Stopped - Provider: Denise Gordon RN) NSS infusion Intravenous, at 25 mL/hr, CONTINUOUS, Starting on Wed01/26/25 at 0745, Until Wed01/26/25 at 1744, Pre-Op 0745 (New Bag - Prov ider: Iman Restrepo, RN)1000 (Stopped - Provider: Iman Restrepo, RN) PRN Medication Order 01/24/2025 01/25/2025 01/26/2025 fentaNYL (PF) inj 25 mcg 25 mcg, IV Push, PRN Pain, Moderate, Pain, Severe, Starting on Wed01/26/25 at 0745, Until Wed01/26/25 at 1144, For 4 hours, To be administered in EP Lab intra-procedure only. When given IV Push its recommended that the dose be given over 3 to 5 minutes., Intra-Op 0833 (Given - Provid er: Denise Gordon RN)0838 (Given - Provider: Denise Gordon RN)0848 (Given - Provider: Denise Gordon RN)0852 (Given - Provider: Denise Gordon RN)0903 (Given - Provider: Denise Gordon RN)0922 (Given - Provider: Denise Gordon RN)0930 (Given - Provider: Denise Gordon RN)0947 (Given - Provider: Denise Gordon RN) midazolam (Versed) 2 MG/2ML inj 1 mg 1 mg, IV Push, PRN Other, Inadequate sedation, Starting on Wed01/26/25 at 0745, Until Wed01/26/25 at 1144, For 4 hours, To be administered in EP Lab intra-procedure only., Intra-Op 0833 (Given - Provid er: Denise Gordon RN)0838 (Given - Provider: Denise Gordon RN)0848 (Given - Provider: Denise Gordon RN)0852 (Given - Provider: Denise Gordon RN)0903 (Given - Provider: Denise Gordon RN)0922 (Given - Provider: Denise Gordon RN)0930 (Given - Provider: Denise Gordon RN)0947 (Given - Provider: Denise Gordon RN) documented in this encounter Advance Directives [...] Discussed due to patient's condition Care Teams Shipping Inspector Relationship Specialty Start Date End Date Jess Hinojosa DO [address] [facility] [place] [address] PCP - General Family Medicine 07/05/20 documented as of this encounter
--- OUTSIDE RECORDS SUMMARY | 2025-03-24 17:07 | External Medical Summary ---
Author Name Unknown Address Unknown Organization K01:LABORATORY [facility] - [address] [place] [address] Laboratory Report Ordering Provider Test Date Status ANAND BENJAMIN 01/26/2025 07:26:07 Final Observation Date Value Abnormality Reference (Units ) Status BUN 01/26/2025 07:26:07 13 6-20 (mg/dL) Final Creatinine 01/26/2025 07:26:07 0.7 0.6-1.2 (mg/dL) Final Glomerular filtration rate/1.73 sq M.predicted [Volume Rate/Area] in Serum, Plasma or Blood by Creatinine-based formula (CKD-EPI) 01/26/2025 07:26:07 >90 >=60 (mL/min) Final eGFR is calculated based on the CKD-EPI 2020 equation. Sodium 01/26/2025 07:26:07 141 135-146 (m mol/L) Final Potassium 01/26/2025 07:26:07 4.4 3.5-5.1 (m mol/L) Final Cl 01/26/2025 07:26:07 106 98-107 (mm ol/L) Final CO2 01/26/2025 07:26:07 25 22-32 (mmo l/L) Final Anion gap 01/26/2025 07:26:07 10 7-15 (mmol /L) Final Glucose 01/26/2025 07:26:07 85 70-120 (mg /dL) Final Calcium 01/26/2025 07:26:07 8.8 8.4-10.2 ( mg/dL) Final Performing Location LABORATORY [facility] - [address] [place] [address]
--- OUTSIDE RECORDS SUMMARY | 2025-03-24 17:07 | External Medical Summary ---
Author Name Unknown Address Unknown Organization K1G:LABORATORY [facility] - [address] [place] [id number] Laboratory Report Ordering Provider Test Date Status MICHAEL LIU 01/11/2025 16:37:51 Final Observation Date Value Abnormality Reference (Units ) Status WBC, Total 01/11/2025 16:37:51 9.55 4.00-10.8 0 (K/uL) Final RBC 01/11/2025 16:37:51 4.86 4.50-5.25 (M/uL) Final Hemoglobin 01/11/2025 16:37:51 13.3 Below low normal 14 .0-16.8 (g/dL) Final HCT 01/11/2025 16:37:51 42.1 40.0-48.4 (%) Final MCV 01/11/2025 16:37:51 86.6 82.0-99.5 (fL) Final MCH 01/11/2025 16:37:51 27.4 27.0-34.0 (pg) Final MCHC 01/11/2025 16:37:51 31.6 32.0-36.0 (g/dL) Final RDW 01/11/2025 16:37:51 13.7 11.5-15.5 (%) Final Platelets 01/11/2025 16:37:51 217 140-400 (K /uL) Final MPV 01/11/2025 16:37:51 11.5 6.6-11.1 ( fL) Final Performing Location [facility] [address] [facility] [address]
--- OUTSIDE RECORDS SUMMARY | 2025-03-24 17:07 | External Medical Summary | Summary of Care ---
Author Name Unknown Organization [facility] Address [address] [place] [address] Phone [phone] Care Team Providers Care Sales Order Specialist Name Role Phone Jess Hinojosa DO Primary Care Provider [phone] Reason for Visit * Reason Onset Date Comments Patient Instructions 01/12/2025 Encounter Details Date Type Department Care Team (Late st Contact Info) Description 01/12/2025 Telephone Cardiology [facility] [address] [place] [address] Óscar Pina [address] [place] [address] Patient Instructions Allergies Active Allergy [...] mRNA, LNP-s, No Pre serve, 2-Dose Series ([employer]) 09/15/2021,12/03/2020,11/09/2020 Covid-19, Mrna, Lnp-s, Pf, B ivalent, 30 Mcg, IM, 12 yrs and above ([employer]) 10/20/2022 HPV Vaccine, 9-Valent 05/06/2023 Hepatitis B, [...] 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 Not on file Not on [...] 02/04/2023 3:15 PM Fernando Hopson RN * Because of a physical, mental, [...] Fernando Granados RN documented in this encounter Plan of Treatment Upcoming Encounters Date Type Department Care Team (Latest Contact Info) Description 01/26/2025 7:00 AM EST Hospital Encounter CRS Waiting [facility], Cardiac Recovery Suite Waiting Unit, H [address] [place] [facility] [place] [address] Óscar Pina DO [address] [facility] [place] [phone] 01/26/2025 7:00 AM EST - 01/26/2025 9:00 AM EST Surgery CRS Waiting [facility], Cardiac Recovery Suite Waiting Unit, H [address] [place] [facility] [place] [address] Óscar Pina DO [address] [facility] [place] [phone] SVT EPS AND CATHETER ABLATION 01/26/2025 7:00 AM EST Office Visit Cardiology [facility] [place] [address] [facility], [place] [phone] [place], Cardiac Recovery [facility] [address] [facility] [place] [address] 08/23/2025 3:30 PM EDT Cardiac Studies [facility] [place] [address] [facility], [place] [phone] [place], Ekg [address] [facility], [place] [id number] 08/23/2025 4:00 PM EDT Office Visit Cardiology [facility], [place] [address] [facility], [place] [id number] Óscar Pina DO [address] [facility] [place] [phone] Scheduled Procedures Name Priority Associated Diagnoses Date/Ti me SVT EPS AND CATHETER ABLATION SVT (supraventricular tachycardia) ([facility]) 01/26/2025 7:00 AM EST Health Maintenance Due Date Last Done Comments Pneumococcal Vaccine: Pediatrics (0 to 5 Years) and At-Risk Patients (6 to 18 Years and 19+ Years) (2 of 2 - PCV) 08/03/2014 08/03/2013 HPV (Gardasil) Vaccine (2 - 3-dose SCDM series) 06/03/2023 05/06/2023 COVID-19 Vaccine ( - season) 2024 10/20/2022, 09/15/2021, 12/03/2020, Additional history [...] Discussed due to patient's condition Care Teams Sales Order Specialist Relationship Specialty Start Date End Date Jess Hinojosa DO [address] [place] [address] PCP - General Family Medicine 07/05/20 documented as of this encounter
--- OUTSIDE RECORDS SUMMARY | 2025-03-24 17:07 | External Medical Summary ---
Author Name Unknown Address Unknown Organization K1G:LABORATORY [facility] - [address] [place] [id number] Laboratory Report Ordering Provider Test Date Status MICHAEL LIU 01/11/2025 16:37:51 Final Observation Date Value Abnormality Reference (Units ) Status TSH 01/11/2025 16:37:51 1.60 0.27-4.20 (uIU/mL) Final Performing Location LABORATORY [facility] - [address] [facility] [address]
--- OUTSIDE RECORDS SUMMARY | 2025-03-24 17:08 | External Medical Summary ---
Author Name Unknown Address Unknown Organization K1G:LABORATORY [facility] - [address] [facility] [address] Laboratory Report Ordering Provider Test Date Status ROSI RICKS 12/26/2024 20:46:54 Fin al Observation Date Value Abnormality Reference (Units ) Status SYNC LEUKOCYTES IN BLOOD BY AUTOMATED COUNT 12/26/2024 20:46:54 11.54 Above high normal 4.00-10.80 (K/uL) Final Segs 12/26/2024 20:46:54 64.7 40.0-75.0 (%) Final Lymphs % 12/26/2024 20:46:54 25.6 18.0-42.0 (%) Final Monos 12/26/2024 20:46:54 6.3 1.0-11.0 (%) Final Eosinophils 12/26/2024 20:46:54 2.9 0.0-6.0 (%) Final Basos 12/26/2024 20:46:54 0.5 0.0-2.0 (%) Final Absolute Segs 12/26/2024 20:46:54 7.45 1.80-7.70 (K/uL) Final Lymphs, absolute 12/26/2024 20:46:54 2.96 1.00-4.80 (K/ul) Final Monos, Abs 12/26/2024 20:46:54 0.73 0.00-1.10 (K/uL) Final Eos, Abs 12/26/2024 20:46:54 0.34 0.00-0.70 (K/uL) Final Basos, Abs 12/26/2024 20:46:54 0.06 0.00-0.20 (K/uL) Final Performing Location LABORATORY [facility] - [address] [facility] [address]
--- OUTSIDE RECORDS SUMMARY | 2025-03-24 17:08 | External Medical Summary ---
Author Name Unknown Address Unknown Organization K1G:LABORATORY [facility] - [address] [place] [phone] Laboratory Report Ordering Provider Test Date Status ROSI RICKS 12/26/2024 20:49:31 Fin al Observation Date Value Abnormality Reference (Units ) Status Lactic Acid, Whole Blood 12/26/2024 20:49:31 0.9 0.4-2.0 (mmol/L) Final Performing Location LABORATORY [facility] - [address] [place] [phone]
--- OUTSIDE RECORDS SUMMARY | 2025-03-24 17:08 | External Medical Summary ---
Author Name Unknown Address Unknown Organization K1G:LABORATORY [facility] - [address] [place] [id number] Laboratory Report Ordering Provider Test Date Status ROSI RICKS 12/26/2024 20:46:54 Fin al Observation Date Value Abnormality Reference (Units ) Status Magnesium 12/26/2024 20:46:54 2.2 1.5-2.6 (m g/dL) Final Performing Location LABORATORY [facility] - [address] [facility] [address]
--- OUTSIDE RECORDS SUMMARY | 2025-03-24 17:08 | External Medical Summary | Summary of Care ---
Author Name Unknown Organization [facility] Address [address] [place] [address] Phone [phone] Care Team Providers Care Last Pattern Grader Name Role Phone Jess Hinojosa DO Primary Care Provider [phone] Reason for Referral * Precert (Routine) - Closed Specialty Diagnoses / Procedures Referred By Nguyễn herrera Referred To Contact Radiology Diagnoses Chest pain, unspecified type Procedures CT CARDIAC COMPLETE Xavi Belcher DO [address] [place] [address] Phone: tel: fax: Referral ID Status Reason Start Date Expiration Date V isits Requested Visits Authorized [id number] Closed Precert 10/26/2024 04/24/2025 1 1 Reason for Visit * Precert (Routine) - Closed Specialty Diagnoses / Procedures Referred By Nguyễn herrera Referred To Contact Radiology Diagnoses Chest pain, unspecified type Procedures CT CARDIAC COMPLETE Xavi Belcher DO [address] [place] [address] Phone: tel: fax: Referral ID Status Reason Start Date Expiration Date V isits Requested Visits Authorized [id number] Closed Precert 10/26/2024 04/24/2025 1 1 Encounter Details Date Type Department Care Team (Latest Contact Info) Description 11/08/2024 9:49 AM EST - 11/08/2024 11:59 PM EST Hospital Encounter Radiology, [facility] [address] [place] [address] Arrived Discharge Disposition: Home - Self Care Allergies Active Allergy Reactions Criticality Noted Date Comments Doxycycline Hives High 08/07/2021 Rash all over body Sumatriptan Neuro complications (Please comment) 09/19/2020 Severe muscle pain, increased migraine. documented as of this encounter (statuses as of 11/09/2024) Medications Rizatriptan Benzoate (MAXALT) 10 MG TabletIndications [...] FOR NAUSEA AFTER SURGERY 20 Tablet 4 12/20/19 25 Active Pantoprazole Sodium 40 MG Oral Tablet Delayed Release (Protonix) Take 1 Tablet by mouth in the morning. 90 Tablet 3 4 Active Metoprolol Tartrate 100 MG Oral Tablet (Lopressor) Take 1 tablet at bedtime the night before the Cardiac CT and take 1 tablet the morning of the Cardiac Ct at 8 am 2 Tablet 4 Active documented as of this encounter (statuses as of 11/09/2024) Active Problems Problem Noted Date Diagnosed Date Well adult exam 05/06/2023 GERD (gastroesophageal reflux [...] as of this encounter (statuses as of 11/09/2024) Resolved Problems Problem Noted Date Diagnosed Date [...] as of this encounter (statuses as of 11/09/2024) Immunizations Name Administration Dates Next Due COVID-19 mRNA, LNP-s, No Pre serve, 2-Dose Series (InCast) 09/15/2021,12/03/2020,11/09/2020 Covid-19, Mrna, Lnp-s, Pf, B ivalent, 30 Mcg, IM, 12 yrs and above (Pfizer) 10/20/2022 HPV Vaccine, 9-Valent 05/06/2023 Hepatitis B, [...] No 06/01/2024 [facility] the [facility]? 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 Not on file Not on file [...] Fernando Hopson RN documented in this encounter Plan of Treatment Pending Results Name Type Priority Associated Diagnoses Date /Time CT CARDIAC COMPLETE Medical Imaging Routine Chest pain, unspecified type 11/08/2024 10:29 AM EST Health Maintenance Due Date Last Done Comments Pneumococcal Vaccine: Pediatrics (0 to 5 Years) and At-Risk Patients (6 to 64 Years) (2 of 2 - PCV) 08/03/2014 [...] Completed , 08/20/2023, 07/28/2022, Additional history exists documented as of this encounter Medical Devices Not on filedocumented as of this encounter Procedures Procedure Name Priority Date/Time Associated Diagnosis Comments CT CARDIAC COMPLETE Routine 11/08/2024 10:29 AM EST Chest pain, unspecified type Procedure Note - Dipak Keating, - 11/08/2024 10:29 AM ESTThis note is in progress. Interpretation Summary: The coronary arteries are normal: absence of plaque and no luminalstenosis. Findings are consistent with CAD-RADS category 0 (absence ofCAD), no further ischemic cardiac work up is needed. Considernonatherosclerotic causes of chest pain. The exam quality is good (mild artifacts are present). The Agatston calcium score is 0. Coronary Findings The exam quality is good (mild artifacts are present). There is leftdominant coronary anatomy. The Agatston calcium score is 0. The left mainAgatston calcium score is 0. The LAD Agatston calcium score is 0. Thecircumflex Agatston calcium score is 0. The right coronary Agatstoncalcium score is 0. Estimated arterial age = Age appropriate. Left Main Coronary Artery The left main is well visualized and is normal with no plaque or stenosis.The LM is well visualized. Left Anterior Descending Coronary Artery The proximal left anterior descending coronary artery is well visualizedand is normal with no plaque or stenosis. The diagonal branches arevisualized and are normal. The proximal LAD is well visualized. The midLAD is well visualized. The distal LAD is well visualized. The mid leftanterior descending coronary artery is well visualized and is normal withno plaque or stenosis. The distal left anterior descending coronary arteryis well visualized and is normal with no plaque or stenosis. The CTFFR inthe diagonal LAD as calculated by HeartFlow is 4. Circumflex Coronary Artery The proximal circumflex is well visualized and is normal with no plaque orstenosis. The mid circumflex is well visualized and is normal with noplaque or stenosis. The distal circumflex is well visualized and is normalwith no plaque or stenosis. The proximal circumflex artery is wellvisualized. The mid circumflex artery is well visualized. The distalcircumflex artery is well visualized. The obtuse marginal branches arevisualized and are normal. The left posterior descending artery isvisualized and is not stenotic. The circumflex artery has 1 obtusemarginal branches. Right Coronary Artery The mid right coronary artery is well visualized and is normal with noplaque or stenosis. The proximal right coronary artery is well visualizedand is normal with no plaque or stenosis. The distal right coronary arteryis well visualized and is normal with no plaque or stenosis. The proximalright coronary artery is well visualized. The mid right coronary artery iswell visualized. The distal right coronary artery is well visualized. Ventricles NO VSD. Atria and Interatrial Septum Left atrial diverticulum (small) present. There is a possible patentforamen ovale. Great Vessels The thoracic aorta is normal sized. The main pulmonary artery and thebifurcation are normal. The pulmonary venous drainage is normal. Thesuperior vena cava is normal. Pericardium The pericardium is of normal thickness without evidence of significantpericaridal effusion. Procedure Details The Body Mass Index is '34.57' meter squared . Cardiac CT protocol:"Prospective" . Cardiac CT with Ca score performed: [id number] ([id number] [id number]). Heart Rate: "34-39" bpm. Dose Length Produce (DLP) "507".Radiation dose: '507' mSv. Voltage setting: '130' KV. Milliamperage "111"MA. Field of view: 'cardiac structures only.' Scan Length 132 mm. [id number] msec. IV contrast dose: '95' ml Visapaque. Nitroglycerin 0.4 mgtablet was administered SL 2 times. Contrast infusion rate "7.0"ml/sec.Metropolol 100 mg PO was self administered the morning of scanning.Metoprolol 100 mg PO was self administered the night before scanning. POSTCT VITALS 115/79 59 Melanie Padgett RT/CT Mariajose Smith RN Quantitative Analysis Mid ascending aorta: 27 x 25 mm (transverse). Mid descendig aorta: 20 x 18mm (transverse). Distal main PA = 22 mm. Aortic root: 29 x 29 x 27 mm(transverse). documented in this encounter Visit Diagnoses Diagnosis Chest pain, unspecified type- Primary documented in this encounter Administered Medications Inactive Administered Medications - up to 3 most recent administrations Medication Order MAR Action Action Date Dose Rate Site Iopamidol (Isovue 370) inj 80 mL 80 mL, Intravenous, ONCE, On Wed11/08/24 at 1012, For 1 dose, Radiology Medication Routing (Non-IR) Given 11/08/2024 10:30 AM EST 80 mL Nitroglycerin (Nitrostat) sl tab 0.4 mg 0.4 mg, Sublingual, Q5 MIN PRN Other, For Cardiac Studies Only - Vasodilation related to Cardiac Studies, Starting on Wed11/08/24 at 1013, Until Wed11/08/24 at 1212, For 2 hours, May repeat up to 1.2 mg total - For Cardiac Studies Only - Vasodilation related to Cardiac Studies, Cardiac Studies_HODHOVIndications:Chest pain, unspecified type Given 11/08/2024 10:14 AM EST 0.8 mg documented in this encounter Advance Directives * [...] Discussed due to patient's condition Care Teams Last Pattern Grader Relationship Specialty Start Date End Date Jess Hinojosa DO [address] [place] [address] PCP - General Family Medicine 07/05/20 documented as of this encounter
--- OUTSIDE RECORDS SUMMARY | 2025-03-24 17:08 | External Medical Summary | Summary of Care ---
Author Name Unknown Organization [facility] Address [address] [place] [address] Phone [phone] Care Team Providers Care Tennis Director Name Role Phone Jess Hinojosa DO Primary Care Provider [phone] Reason for Referral * Evaluate & Treat - Unlimited Visits (Within 10 days (routine)) - Pending Review Specialty Diagnoses / Procedures Referred By Contact Referred To Contact Cardiovascular Medicine / Cardiology Diagnoses Palpitations Ce Medina DO [address] [place] [address] Phone: tel: fax: Referral ID Status Reason Start Date Expiration Date Visits Requested Visits Authorized [id number] Pending Review Specialty Services Required 12/26/[phone] Question Answer Referral Priority Within 10 days (routine) Where should this appointment be scheduled? [facility] For which of the following conditions are you referring? SVT (Supraventricular Tachycardia) Is the patient symptomatic (palpitations, light headedness, chest discomfort)? Yes Comments Discharge Order Reason for Visit * Reason Comments Palpitations * Auth/Cert Specialty Diagnoses / Procedures Referred By Nguyễn herrera Referred To Contact [address] [address] Phone: [phone] [facility] ([facility]) [address] [place] [address] Phone: tel: fax: Referral ID Status Reason Start Date Expiration Date Visits Re quested Visits Authorized [id number] Encounter Details Date Type Department Care Team (Late st Contact Info) Description 12/26/2024 8:38 PM EST - 12/26/2024 11:17 PM EST Emergency [facility] (SH) [address] [place] [address] Ce Medina, [address] [place] [address] Palpitations (Primary Dx); Chest pain Discharge Disposition: Home - Self Care Allergies Active Allergy Reactions Criticality Noted Date Comments Doxycycline Hives High 08/07/2021 Rash all over body Sumatriptan Neuro complications (Please comment) 09/19/2020 Severe muscle pain, increased migraine. documented as of this encounter (statuses as of 12/27/2024) Medications Rizatriptan Benzoate (MAXALT) 10 MG TabletIndications [...] as of this encounter (statuses as of 12/27/2024) Active Problems Problem Noted Date Diagnosed Date [...] as of this encounter (statuses as of 12/27/2024) Resolved Problems Problem Noted Date Diagnosed Date [...] as of this encounter (statuses as of 12/27/2024) Immunizations Name Administration Dates Next Due COVID-19 mRNA, LNP-s, No Pre serve, 2-Dose Series ([employer]) 09/15/2021,12/03/2020,11/09/2020 Covid-19, Mrna, Lnp-s, Pf, B ivalent, 30 Mcg, IM, 12 yrs and above ([employer]) 10/20/2022 HPV Vaccine, 9-Valent 05/06/2023 Hepatitis B, [...] the money to buy more. 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 Not on file Not on file Not on file documented as of this encounter Last Filed Vital Signs Vital Sign Reading Time Taken Comments Blood Pressure 110/54 12/26/2024 11:00 PM EST Pulse 78 12/26/2024 11:00 PM EST Temperature 36.5 °C (97.7 °F) 12/26/2024 8:32 PM ES T Respiratory Rate 26 12/26/2024 11:00 PM EST Oxygen Saturation 98% 12/26/2024 11:00 PM EST Inhaled Oxygen Concentration - - Weight 99.8 kg (220 lb) 12/26/2024 8:32 PM EST Height - - Body Mass Index 31.57 06/01/2024 10:14 AM EDT documented in this encounter Functional Status * [...] Fernando Granados RN documented in this encounter Discharge Instructions * Discharge Instructions* Ce Medina DO - 12/26/2024 11:11 PM EST Seek medical attention if increased heart rate, dizziness/lightheadedness, nausea, vomiting or fainting occurs. documented in this encounter Procedure Notes * Royce Wood MD - 12/26/2024 8:38 PM ESTAssociated Order(s): EKG REASON FOR STUDY: Chest pain CONCLUSIONS: Normal sinus rhythm Normal ECG When compared with ECG of 04-Feb-2023 08:32, No significant change was found Ventricular Rate: 82 Atrial Rate: 82 WY Interval: 126 QRS Duration: 82 QT/QTc: 356/415 ms P-R-T [place]: 46 : 68 : 6 degrees documented in this encounter ED Notes * Vandana Granda RN - 12/26/2024 8:33 PM EST PT has a history of SVT. He believes he had appx 1 minute of Vtach or SVT. He was diaphoretic, chest pain, weakness and near syncopal. He states the chest pain persists and radiates into his neck documented in this encounter Miscellaneous Notes * Pt Handout (on AVS) - Ce Medina DO - 12/26/2024 11:08 PM EST [id number] Understanding Heart Palpitations Heart palpitations are the feeling you have when your heartbeat seems to be racing, pounding, skipping, or fluttering. Heart palpitations are most often felt in the chest. They may also sometimes be felt in the neck, ears, or head. What causes heart palpitations? In most cases, heart palpitations are caused by: · Stress or anxiety · Exercise · · Some medicines · Caffeine · Nicotine · Alcohol · Illegal drugs such as cocaine · Health problems such as anemia or overactive thyroid Many heart palpitations are harmless. But in some cases, palpitations may be caused by a problem. This might be an abnormal heart rhythm (arrhythmia). You and your healthcare provider may need to manage these salvage determiner. Or you may need treatment right away. How are heart palpitations treated? Treatments for heart palpitations depend on the cause. Choices may include: · Managing the things that trigger your heart palpitations. This could mean: o Learning ways to reduce stress and anxiety o Staying away from caffeine, nicotine, alcohol, and illegal drugs o Stopping the use of certain medicines, under your doctor?s guidance · Taking medicines or having procedures or surgery to treat an arrhythmia or other health problem that is causing your symptoms How are heart palpitations diagnosed? Your provider will diagnose the cause of your heart palpitations by looking at your health history,doing a physical exam, and ordering tests. Tests may include: · Electrocardiogram (ECG) to assess your heart's rhythm · Blood work to see if you have any metabolic or endocrine problems · Ambulatory cardiac monitoring to monitor your heart rhythm over time · Echocardiogram (ECHO) to assess your heart for structural problems What are possible complications of heart palpitations? Complications of heart palpitations are rare unless they are caused by a problem such as an arrhythmia. In such cases, complications can include: · Fainting · Heart failure. This problem occurs when the heart is so weak it no longer pumps blood well. · Blood clots and stroke · Sudden cardiac arrest. This problem occurs when the heart suddenly stops beating. When should I call my healthcare provider? Call your healthcare provider right away if you have any of these: · Palpitations that prevent you from sleeping or otherwise affect your quality of life. · Symptoms that don?t get better with treatment, or symptoms that get worse Call 911 Call 911 if any of the following occur: · New symptoms, such as chest pain or tightness, shortness of breath or trouble breathing, dizziness, confusion, or fainting · Sudden numbness or weakness in the face, arms, or legs Last Reviewed Date: 2022 00:00:00 © [employer]. All rights reserved. This information is not intended as a substitute for professional medical care. Always follow your healthcare professional's instructions. documented in this encounter Plan of Treatment Scheduled Orders Name Type Priority Associated Diagnoses Orde r Schedule EXTERNAL EKG 2 TO 7 DAYS Holter Routine Palpitations Expected: 12/27/2024 (Approximate), Expires: 12/26/2025 Scheduled Referrals Name Type Priority Associated Diagnoses Orde r Schedule CARDIOLOGY REFERRAL OP Referral Within 10 days (routine) Palpitations Ordered: 12/26/2024 Health Maintenance Due Date Last Done Comments [...] Procedure Name Priority Date/Time Associated Diagnosis Comments TROPONIN T, HIGH SENSITIVITY STAT 12/26/2024 10:14 PM EST XR CHEST 2 VIEWS STAT 12/26/2024 9:01 PM EST BLOOD GAS, VENOUS STAT 12/26/2024 8:4 9 PM EST LACTATE,WHOLE BLOOD Routine 12/26/2024 8 :49 PM EST EXTRA LIGHT BLUE TOP STAT 12/26/2024 8:46 PM EST DIFFERENTIAL, AUTOMATED STAT 12/26/2024 8:46 PM EST TROPONIN T, HIGH SENSITIVITY STAT 12/26/2024 8:46 PM EST COMPREHENSIVE METABOLIC PANEL STAT 12/26/2024 8:46 PM EST CBC STAT 12/26/2024 8:46 PM EST CBC STAT 12/26/2024 8:46 PM EST TSH Add-on 12/26/2024 8:46 PM EST MAGNESIUM Add-on 12/26/2024 8:46 PM EST HC ECG TRACING ONLY STAT 12/26/2024 8 :38 PM EST Chest pain documented in this encounter Results * TROPONIN T, HIGH SENSITIVITY (12/26/2024 10:14 PM EST) Troponin T, High Sensitivity <6 <=22 ng/L 12/26/2024 10:48 PM EST LABORATORY [facility] Blood Venous blood specimen / Unknown Venipuncture / Unknown 12/26/2024 10:14 PM EST 12/26/2024 10:26 PM EST Ce Leon DO LAB BLOOD ORDERA BLES Final Result LABORATORY [address] [address] * XR CHEST 2 VIEWS (12/26/2024 9:01 PM EST) Anatomical Region Laterality Modality Chest Computed Radiogr aphy 12/26/2024 9:01 PM EST Impressions 12/26/2024 10:03 PM EST IMPRESSION: No dense parenchymal consolidation, pleural effusion, or pneumothorax. THIS DOCUMENT HAS BEEN ELECTRONICALLY SIGNED BY ARMIDA JEFFERY MD Narrative 12/26/2024 10:03 PM EST PROCEDURE INFORMATION: Exam: XR Chest Exam date and time: 12/26/2024 9:01 PM Age: 29 years old Clinical indication: Pain; Chest pressure; Additional info: Chest pain TECHNIQUE: Imaging protocol: Radiologic exam of the chest. Views: 2 views. COMPARISON: DX XR ABDOMEN OBSTRUCT SERIES W CHEST 1 VIEW 07/17/2022 12:43 PM FINDINGS: Lungs: No evidence of acute pulmonary disease or infiltrates Pleural spaces: No large effusion or pneumothorax. Heart/Mediastinum: Stable cardiac and mediastinal contours. Diaphragm: There is elevation of the right hemidiaphragm. Bones/joints: No evidence of acute osseous abnormalities within the visualized portions of the thoracic spine and ribs. Osseous structures appear appropriate for patient age. Procedure Note Armida Jeffery MD - 12/26/2024 PROCEDURE INFORMATION: Exam: XR Chest Exam date and time: 12/26/2024 9:01 PM Age: 29 years old Clinical indication: Pain; Chest pressure; Additional info: Chest pain TECHNIQUE: Imaging protocol: Radiologic exam of the chest. Views: 2 views. COMPARISON: DX XR ABDOMEN OBSTRUCT SERIES W CHEST 1 VIEW 07/17/2022 12:43 PM FINDINGS: Lungs: No evidence of acute pulmonary disease or infiltrates Pleural spaces: No large effusion or pneumothorax. Heart/Mediastinum: Stable cardiac and mediastinal contours. Diaphragm: There is elevation of the right hemidiaphragm. Bones/joints: No evidence of acute osseous abnormalities within thevisualized portions of the thoracic spine and ribs. Osseous structures appearappropriate for patient age. IMPRESSION IMPRESSION: No dense parenchymal consolidation, pleural effusion, or pneumothorax. THIS DOCUMENT HAS BEEN ELECTRONICALLY SIGNED BY ARMIDA JEFFERY MD Ce Leon DO RADIOLOGY (RAD G ENERAL) Final Result * (ABNORMAL) BLOOD GAS, VENOUS (12/26/2024 8:49 PM EST) Temperature 37.0 C 12/26/2024 8:58 PM EST LABORATORY [facility] pH, Venous 7.365 7.320 - 7.430 units 12/26/2024 8:58 PM EST LABORATORY [facility] pCO2, Venous 53.6 40.0 - 60.0 mmHg 12/26/2024 8:58 PM EST LABORATORY [facility] pO2, Venous 29.1 25.0 - 50.0 mmHg 12/26/2024 8:58 PM EST LABORATORY [facility] Base Excess, Venous 3.8(H) -2.0 - 2.0 mmol/L 12/26/2024 8:58 PM EST LABORATORY [facility] HGB 14.4 14.0 - 16.8 g/dL 12/26/2024 8:58 PM EST LABORATORY [facility] Oxyhemoglobin, Venous 51.2 40.0 - 85.0 % total Hgb 12/26/2024 8:58 PM EST LABORATORY [facility] Carboxyhemoglobi n, Whole Blood 1.0 <=1.5 % total Hgb 12/26/2024 8:58 PM EST LABORATORY [facility] Comment:Smokers: 0-9.0 % Methemoglobin, Whole Blood 1.0 <=1.5 % total Hgb 12/26/2024 8:58 PM EST LABORATORY [facility] Reduced Hemoglobin, Venous 46.8 % total Hgb 12/26/2024 8:58 PM EST LABORATORY [facility] O2 Content, Venous 10.4 7.0 - 18.0 %vol 12/26/2024 8:58 PM EST LAB[facility]ATORY [facility] Bicarbonate, Whole Blood 30.6 23.0 - 31.0 mmol/L 12/26/2024 8:58 PM EST LABORATORY [facility] Blood Venous blood specimen / Unknown Venipuncture / Unknown 12/26/2024 8:49 PM EST 12/26/2024 8:52 PM EST Ce Leon DO LAB BLOOD ORDERA BLES Final Result LABORATORY [place] [address] [place] [address] * LACTATE,WHOLE BLOOD (12/26/2024 8:49 PM EST) Lactate 0.9 0.4 - 2.0 mmol/L 12/26/2024 8:58 PM EST LABORATORY [facility] Blood Venous blood specimen / Unknown Venipuncture / Unknown 12/26/2024 8:49 PM EST 12/26/2024 8:52 PM EST [facility]A BLES Final Result Performing Organization Address [facility]/ZIP Co de Phone Number LABORATORY [address] [phone] * MAGNESIUM (12/26/2024 8:46 PM EST) Pathologist [facility] Magnesium 2.2 1.5 - 2.6 mg/dL 12/26/2024 9:13 PM EST LABORATORY [facility] Blood Venous blood specimen / Unknown Venipuncture / Unknown 12/26/2024 8:46 PM EST 12/26/2024 8:52 PM EST Ce Daniel [employer] [facility] LAB BLOOD ORDERA BLES Final Result Performing Organization Address [facility] Phone Number LABORATORY [address] [phone] * TSH (12/26/2024 8:46 PM EST) Pathologist [facility] TSH 2.56 0.27 - 4.20 uIU/mL 12/26/2024 9:23 PM EST LABORATORY [facility] Blood Venous blood specimen / Unknown Venipuncture / Unknown 12/26/2024 8:46 PM EST 12/26/2024 8:52 PM EST Ce Daniel [employer] DO LAB BLOOD ORDERA BLES Final Result Performing Organization Address [facility] Co de Phone Number LABORATORY [address] [address] * (ABNORMAL) DIFFERENTIAL, AUTOMATED (12/26/2024 8:46 PM EST) WBC 11.54(H) 4.00 - 10.80 K/uL 12/26/2024 8:56 PM EST LABORATORY [facility] Neutrophils % 64.7 40.0 - 75.0 % 12/26/2024 8:56 PM EST LABORATORY [facility] Lymphocytes % 25.6 18.0 - 42.0 % 12/26/2024 8:56 PM EST LABORATORY [facility] Monocytes % 6.3 1.0 - 11.0 % 12/26/2024 8:56 PM EST LABORATORY [facility] Eosinophils % 2.9 0.0 - 6.0 % 12/26/2024 8:56 PM EST LABORATORY [facility] Basophils % 0.5 0.0 - 2.0 % 12/26/2024 8:56 PM EST LABORATORY [facility] Absolute Neutrophils 7.45 1.80 - 7.70 K/uL 12/26/2024 8:56 PM EST LABORATORY [facility] Absolute Lymphocytes 2.96 1.00 - 4.80 K/ul 12/26/2024 8:56 PM EST LABORATORY [facility] Absolute Monocytes 0.73 0.00 - 1.10 K/uL 12/26/2024 8:56 PM EST LABORATORY [facility] Absolute Eosinophils 0.34 0.00 - 0.70 K/uL 12/26/2024 8:56 PM EST LABORATORY [facility] Absolute Basophils 0.06 0.00 - 0.20 K/uL 12/26/2024 8:56 PM EST LABORATORY [facility] Blood Venous blood specimen / Unknown Venipuncture / Unknown 12/26/2024 8:46 PM EST 12/26/2024 8:52 PM EST Ce Leon DO LAB BLOOD ORDERA BLES Final Result LABORATORY [place] [address] [place] [address] * (ABNORMAL) CBC (12/26/2024 8:46 PM EST) WBC 11.54(H) 4.00 - 10.80 K/uL 12/26/2024 8:56 PM EST LABORATORY [facility] RBC 5.00 4.50 - 5.25 M/uL 12/26/2024 8:56 PM EST LABORATORY [facility] HGB 13.8(L) 14.0 - 16.8 g/dL 12/26/2024 8:56 PM EST LABORATORY [facility] HCT 42.8 40.0 - 48.4 % 12/26/2024 8:56 PM EST LABORATORY [facility] MCV 85.6 82.0 - 99.5 fL 12/26/2024 8:56 PM EST LABORATORY [facility] MCH 27.6 27.0 - 34.0 pg 12/26/2024 8:56 PM EST LABORATORY [facility] MCHC 32.2 32.0 - 36.0 g/dL 12/26/2024 8:56 PM EST LABORATORY [facility] RDW 13.6 11.5 - 15.5 % 12/26/2024 8:56 PM EST LABORATORY [facility] PLT 235 140 - 400 K/uL 12/26/2024 8:56 PM EST LABORATORY [facility] MPV 10.9 6.6 - 11.1 fL 12/26/2024 8:56 PM EST LABORATORY [facility] Blood Venous blood specimen / Unknown Venipuncture / Unknown 12/26/2024 8:46 PM EST 12/26/2024 8:52 PM EST [facility] BLOOD ORDERA BLES Final Result Performing Organization Address [facility]/ZIP Co de Phone Number LABORATORY [address] [phone] * EXTRA LIGHT BLUE TOP (12/26/2024 8:46 PM EST) Blood Venous blood specimen / Unknown Venipuncture / Unknown 12/26/2024 8:46 PM EST 12/26/2024 8:52 PM EST [facility] LAB BLOOD ORDERA BLES Final Result Performing Organization Address [facility]/ZIP Co de Phone Number LABORATORY [address] [phone] * TROPONIN T, HIGH SENSITIVITY (12/26/2024 8:46 PM EST) [facility] Troponin T, High Sensitivity <6 <=22 ng/L 12/26/2024 9:23 PM EST LABORATORY [facility] Blood Venous blood specimen / Unknown Venipuncture / Unknown 12/26/2024 8:46 PM EST 12/26/2024 8:52 PM EST Ce Leon DO LAB BLOOD ORDERA BLES Final Result LABORATORY [place] [address] [place] [address] * COMPREHENSIVE METABOLIC PANEL (12/26/2024 8:46 PM EST) Pathologist [facility] BUN 14 6 - 20 mg/dL 12/26/2024 9:13 PM EST LABORATORY [facility] CREATININE 0.8 0.6 - 1.2 mg/dL 12/26/2024 9:13 PM EST LABORATORY [facility] EGFR >90 >=60 mL/min 12/26/2024 9:13 PM EST LABORATORY [facility] Comment:eGFR is calculated b ased on the CKD-EPI 2020 equation. SODIUM 140 135 - 146 mmol/L 12/26/2024 9:13 PM EST LABORATORY [facility] POTASSIUM 3.7 3.5 - 5.1 mmol/L 12/26/2024 9:13 PM EST LABORATORY [facility] CHLORIDE 101 98 - 107 mmol/L 12/26/2024 9:13 PM EST LABORATORY [facility] CO2 27 22 - 32 mmol/L 12/26/2024 9:13 PM EST LABORATORY [facility] ANION GAP 12 7 - 15 mmol/L 12/26/2024 9:13 PM EST LABORATORY [facility] GLUCOSE 88 70 - 120 mg/dL 12/26/2024 9:13 PM EST LABORATORY [facility] Albumin 4.4 3.8 - 5.0 g/dL 12/26/2024 9:13 PM EST LABORATORY [facility] AST 17 10 - 50 U/L 12/26/2024 9:13 PM EST LABORATORY [facility] Alkaline Phosphatase 64 35 - 130 U/L 12/26/2024 9:13 PM EST LABORATORY [facility] Bilirubin, Total <0.2 <=1.2 mg/dL 12/26/2024 9:13 PM EST LABORATORY [facility] CALCIUM 9.0 8.4 - 10.2 mg/dL 12/26/2024 9:13 PM EST LABORATORY [facility] Protein 7.1 6.0 - 8.3 g/dL 12/26/2024 9:13 PM EST LABORATORY [facility] ALT 24 10 - 50 U/L 12/26/2024 9:13 PM EST LABORATORY [facility] Blood Venous blood specimen / Unknown Venipuncture / Unknown 12/26/2024 8:46 PM EST 12/26/2024 8:52 PM EST Ce María Dig[employer] DO LAB BLOOD ORDERA BLES Final Result Performing Organization Address [facility] de Phone Number LABORATORY [place] [address] [place] [address] * EKG (12/26/2024 8:38 PM EST) 12/26/2024 8:38 PM EST Narrative Procedure Note Royce Wood MD - 12/26/2024 8:38 PM EST REASON FOR STUDY: Chest pain CONCLUSIONS: Normal sinus rhythm Normal ECG When compared with ECG of 04-Feb-2023 08:32, No significant change was found Ventricular Rate: 82 Atrial Rate: 82 WY Interval: 126 QRS Duration: 82 QT/QTc: 356/415 ms P-R-T [place]: 46 : 68 : 6 degrees Ce [email or web address] DO EKG Final Result Performing Organization Address [facility] Co de Phone Number [facility] C[facility] documented in this encounter Visit Diagnoses Diagnosis Palpitations- Primary Chest pain Chest pain, unspecified documented in this encounter Advance Directives * [...] Discussed due to patient's condition Care Teams Tennis Director Relationship Specialty Start Date End Date Jess Hinojosa DO [address] [place] [address] PCP - General Family Medicine 07/05/20 documented as of this encounter
--- OUTSIDE RECORDS SUMMARY | 2025-03-24 17:08 | External Medical Summary | Summary of Care ---
Author Name Unknown Organization [facility] Address [address] [place] [address] Phone [phone] Care Team Providers Care Bail Bondsman Name Role Phone Jess Hinojosa DO Primary Care Provider [phone] Reason for Visit * Reason Onset Date Comments Appointment 11/02/2024 Returning Call 11/02/2024 Encounter Details Date Type Department Care Team (Late st Contact Info) Description 11/02/2024 Telephone Cardiac Studies, [facility] [address] [place], [place] [phone] Mariajose Smith, RADHA Appointment; Returning Call Allergies Active Allergy Reactions Criticality Noted Date Comments Doxycycline Hives High 08/07/2021 Rash all over body Sumatriptan Neuro complications (Please comment) 09/19/2020 Severe muscle pain, increased migraine. documented as of this encounter (statuses as of 11/02/2024) Medications Rizatriptan Benzoate (MAXALT) 10 MG TabletIndications [...] the morning. 90 Tablet 3 4 Active documented as of this encounter (statuses as of 11/02/2024) Active Problems Problem Noted Date Diagnosed Date [...] as of this encounter (statuses as of 11/02/2024) Resolved Problems Problem Noted Date Diagnosed Date [...] as of this encounter (statuses as of 11/02/2024) Immunizations Name Administration Dates Next Due COVID-19 mRNA, LNP-s, No Pre serve, 2-Dose Series ([employer]) 09/15/2021,12/03/2020,11/09/2020 Covid-19, Mrna, Lnp-s, Pf, B ivalent, 30 Mcg, IM, 12 yrs and above ([employer]) 10/20/2022 DTP/HIB ([employer]) 1994,1994,1993 DTaP Dipth/Tet/Acell Pertussis [...] 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 Attempted to warm transfer, no response. TE sent. Caller aware. * Telephone Encounter - Mariajose Smith RN - 11/02/2024 1:20 PM EST Left message on machine for patient to call back for Cardiac CT instructions. Mariajose Smith RN documented in this encounter Plan of Treatment Upcoming Encounters Date Type Department Care Team (Late st Contact Info) Description 11/08/2024 10:00 AM EST Appointment Radiology, [place] [address] [place] [address] Health Maintenance Due Date Last Done Comments [...] Discussed due to patient's condition Care Teams Bail Bondsman Relationship Specialty Start Date End Date Jess Hinojosa DO [address] [facility] [place] [address] PCP - General Family Medicine 07/05/20 documented as of this encounter
--- OUTSIDE RECORDS SUMMARY | 2025-03-24 17:08 | External Medical Summary ---
Author Name Unknown Address Unknown Organization K1G:LABORATORY [facility] - [address] [place] [id number] Laboratory Report Ordering Provider Test Date Status ROSI RICKS 12/26/2024 20:46:54 Fin al Observation Date Value Abnormality Reference (Units ) Status WBC, Total 12/26/2024 20:46:54 11.54 Above high normal 4 .00-10.80 (K/uL) Final RBC 12/26/2024 20:46:54 5.00 4.50-5.25 (M/uL) Final Hemoglobin 12/26/2024 20:46:54 13.8 Below low normal 14 .0-16.8 (g/dL) Final HCT 12/26/2024 20:46:54 42.8 40.0-48.4 (%) Final MCV 12/26/2024 20:46:54 85.6 82.0-99.5 (fL) Final MCH 12/26/2024 20:46:54 27.6 27.0-34.0 (pg) Final MCHC 12/26/2024 20:46:54 32.2 32.0-36.0 (g/dL) Final RDW 12/26/2024 20:46:54 13.6 11.5-15.5 (%) Final Platelets 12/26/2024 20:46:54 235 140-400 (K /uL) Final MPV 12/26/2024 20:46:54 10.9 6.6-11.1 ( fL) Final Performing Location [facility] [address] [facility] [address]
--- OUTSIDE RECORDS SUMMARY | 2025-03-24 17:08 | External Medical Summary ---
Author Name Unknown Address Unknown Organization K1G:LABORATORY [facility] - [address] [place] [phone] Laboratory Report Ordering Provider Test Date Status ROSI RICKS 12/26/2024 20:46:54 Fin al Observation Date Value Abnormality Reference (Units ) Status TSH 12/26/2024 20:46:54 2.56 0.27-4.20 (uIU/mL) Final Performing Location LABORATORY [facility] - [address] [facility] [address]
--- OUTSIDE RECORDS SUMMARY | 2025-03-24 17:08 | External Medical Summary ---
Author Name Unknown Address Unknown Organization K1G:LABORATORY [facility] - [address] [place] [address] Laboratory Report Ordering Provider Test Date Status ROSI RICKS 12/26/2024 20:46:54 Fin al Collect NOW Observation Date Value Abnormality Reference (Units ) Status Troponin T 12/26/2024 20:46:54 <6 <=22 (ng/ L) Final Performing Location LABORATORY [facility] - [address] [place] [phone]
--- OUTSIDE RECORDS SUMMARY | 2025-03-24 17:08 | External Medical Summary ---
Author Name Unknown Address Unknown Organization K1G:LABORATORY [facility] - [address] [facility] [address] Laboratory Report Ordering Provider Test Date Status MICHAEL LIU 01/11/2025 16:37:51 Final Observation Date Value Abnormality Reference (Units ) Status SYNC LEUKOCYTES IN BLOOD BY AUTOMATED COUNT 01/11/2025 16:37:51 9.55 4.00-10.80 (K/uL) Final Segs 01/11/2025 16:37:51 69.0 40.0-75.0 (%) Final Lymphs % 01/11/2025 16:37:51 22.0 18.0-42.0 (%) Final Monos 01/11/2025 16:37:51 6.5 1.0-11.0 (%) Final Eosinophils 01/11/2025 16:37:51 2.2 0.0-6.0 (%) Final Basos 01/11/2025 16:37:51 0.3 0.0-2.0 (%) Final Absolute Segs 01/11/2025 16:37:51 6.59 1.80-7.70 (K/uL) Final Lymphs, absolute 01/11/2025 16:37:51 2.10 1.00-4.80 (K/ul) Final Monos, Abs 01/11/2025 16:37:51 0.62 0.00-1.10 (K/uL) Final Eos, Abs 01/11/2025 16:37:51 0.21 0.00-0.70 (K/uL) Final Basos, Abs 01/11/2025 16:37:51 0.03 0.00-0.20 (K/uL) Final Performing Location LABORATORY [facility] - [address] [facility] [address]
--- OUTSIDE RECORDS SUMMARY | 2025-03-24 17:08 | External Medical Summary | Summary of Care ---
Author Name Unknown Organization [facility] Address [address] [place] [address] Phone [phone] Care Team Providers Care Primary Class Teacher Name Role Phone Jess Hinojosa DO Primary Care Provider [phone] Encounter Details Date Type Department Care Team (Late st Contact Info) Description 12/13/2024 Population Health External Data Unspecified Department Allergies Active Allergy Reactions Criticality Noted Date Comments Doxycycline Hives High 08/07/2021 Rash all over body Sumatriptan Neuro complications (Please comment) 09/19/2020 Severe muscle pain, increased migraine. documented as of this encounter (statuses as of 12/13/2024) Medications Rizatriptan Benzoate (MAXALT) 10 MG TabletIndications [...] as of this encounter (statuses as of 12/13/2024) Active Problems Problem Noted Date Diagnosed Date [...] as of this encounter (statuses as of 12/13/2024) Resolved Problems Problem Noted Date Diagnosed Date [...] as of this encounter (statuses as of 12/13/2024) Immunizations Name Administration Dates Next Due COVID-19 mRNA, LNP-s, No Pre serve, 2-Dose Series ([employer]) 09/15/2021,12/03/2020,11/09/2020 Covid-19, Mrna, Lnp-s, Pf, B ivalent, 30 Mcg, IM, 12 yrs and above ([employer]) 10/20/2022 HPV Vaccine, 9-Valent 05/06/2023 Hepatitis B, [...] 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 Not on file Not on file Not on file documented as of this encounter Functional Status * Are you deaf or do you have serious difficulty hearing? Answer Date of Assessment Author No 02/04/2023 3:15 PM EDGART Dean Granados RN * Are you blind or [...] documented in this encounter Plan of Treatment Health Maintenance Due Date Last Done Comments [...] Discussed due to patient's condition Care Teams Primary Class Teacher Relationship Specialty Start Date End Date Jess Hinojosa DO [address] [address] PCP - General Family Medicine 07/05/20 documented as of this encounter
--- OUTSIDE RECORDS SUMMARY | 2025-03-24 17:08 | External Medical Summary | Summary of Care ---
Author Name Unknown Organization [facility] Address [address] [place] [address] Phone [phone] Care Team Providers Care Human Service Worker Name Role Phone Jess Hinojosa DO Primary Care Provider [phone] Reason for Visit * Reason Comments NEW PATIENT * Evaluate & Treat - Unlimited Visits (Within 10 days (routine)) - Pending Review Specialty Diagnoses / Procedures Referred By Contact Referred To Contact Cardiovascular Medicine / Cardiology Diagnoses Palpitations Ce Medina DO [address] [place] [address] Phone: tel: fax: Referral ID Status Reason Start Date Expiration Date Visits Requested Visits Authorized [id number] Pending Review Specialty Services Required 12/26/[phone] Encounter Details Date Type Department Care Team (Late st Contact Info) Description 01/04/2025 10:00 AM EST Office Visit Cardiology [facility] [address] [place] [address] Óscar Pina DO [address] [place] [address] SVT (supraventricular tachycardia) ([facility])* Allergies Active Allergy Reactions Criticality Noted Date Comments Doxycycline Hives High 08/07/2021 Rash all over body Sumatriptan Neuro complications (Please comment) 09/19/2020 Severe muscle pain, increased migraine. documented as of this encounter (statuses as of 01/04/2025) Medications Rizatriptan Benzoate (MAXALT) 10 MG TabletIndications [...] Ct at 8 am 2 Tablet 4 01/04/20 25 Discontinu ed(Medicat ion/Dose Changed) documented as of this encounter (statuses as of 01/04/2025) Active Problems Problem Noted Date Diagnosed Date [...] as of this encounter (statuses as of 01/04/2025) Resolved Problems Problem Noted Date Diagnosed Date [...] as of this encounter (statuses as of 01/04/2025) Immunizations Name Administration Dates Next Due COVID-19 mRNA, LNP-s, No Pre serve, 2-Dose Series ([employer]) 09/15/2021,12/03/2020,11/09/2020 Covid-19, Mrna, Lnp-s, Pf, B ivalent, 30 Mcg, IM, 12 yrs and above ([employer]) 10/20/2022 HPV Vaccine, 9-Valent 05/06/2023 Hepatitis B, [...] 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 Not on file Not on file Not on file documented as of this encounter Last Filed Vital Signs Vital Sign Reading Time Taken Comments Blood Pressure 132/70 01/04/2025 9:59 AM EST Pulse 78 01/04/2025 9:59 AM EST Temperature - - Respiratory Rate - - Oxygen Saturation 98% 01/04/2025 9:59 AM EST Inhaled Oxygen Concentration - - Weight 110 kg (242 lb 8 oz) 01/04/2025 9:[address] Height 177.8 cm (5' 10") 01/04/2025 9:59 AM EST Body Mass Index 34.8 01/04/2025 9:59 AM EST documented in this encounter Functional Status * Are you deaf or do you have serious difficulty hearing? Answer Date of Assessment Author No 02/04/2023 3:15 PM EDFernando Bruno RN * Are you blind or do [...] Fernando Hopson RN documented in this encounter Progress Notes * Ósacr Pina DO - 01/04/2025 12:57 PM EST Electrophysiology Outpatient Consultation [facility] Humphreys is [...] Further targeted ROS otherwise unremarkable. Past Medical History: Diagnosis Date asthma 04/2005 Asthma Chronic motor or vocal tic disorder GERD (gastroesophageal reflux disease) Hx of migraines IBS (irritable bowel syndrome) PUD (peptic ulcer disease) Tourette syndrome Patient Active Problem List Diagnosis Other allergic [...] exam SVT (supraventricular tachycardia) (HCC) Past Surgical History: Procedure Laterality Date ANESTH, HIP JOINT SURGERY, OPEN Left CAM lesions femoral head/acetab. torn cartilage. @Dr Alatorre. COLONOSCOPY, DIAGNOSTIC (RECTUM) N/A 06/25/2021 [facility], EGD, Savary-Brown Grade III reflux esopahgitis, otherwise normal / no specimens collected EGD, FLEXIBLE, DIAGNOSTIC N/A 06/25/2021 [facility], EGD, Normal mucosa, normal exam / biopsies showed no evidence of microscopic inflammation EGD, FLEXIBLE, DIAGNOSTIC N/A 07/22/2022 ESOPHAGOGASTRODUODENOSCOPY (EGD), FLEXIBLE, TRANSORAL, DIAGNOSTIC performed by Ishan Navarro DO at [facility] EGD, FLEXIBLE, DIAGNOSTIC N/A 02/03/2023 ESOPHAGOGASTRODUODENOSCOPY (EGD), FLEXIBLE, TRANSORAL, DIAGNOSTIC performed by Maggie Rey MD at [facility] ESOPHAGOGASTRIC FUNDOPLASTY N/A 02/03/2023 LAPAROSCOPIC ESOPHAGOGASTRIC FUNDOPLASTY FEI performed by Maggie Rey MD at [facility] PARAESOPHAGEAL HERNIA REPAIR, LAP W/O MESH N/A 02/03/2023 LAPAROSCOPIC PARAESOPHAGEAL HERNIA REPAIR WO/ MESH performed by Maggie Rey MD at [facility] REMOVAL OF APPENDIX 09/28/2005 Appendectomy Family History Problem Relation Name Age of Onset Heart Disorder Mother A fib? Irritable Bowel Syndrome Mother Breast Cancer Mother 60 negative gene testing Allergies Father eggs, PCN, dust mites Heart attack Father 69 patient did CPR. Heart Disorder Grandmother (Maternal) [place] Breast Cancer Grandmother (Maternal) Cora Parkinson White syndrome Grandmother (Maternal) Heart Disorder Grandfather (Paternal) 35 [place] Crohn's disease No significant family history Social History Tobacco Use Smoking status: Former [...] use: Yes Comment: social Drug use: No Review of patient's allergies indicates: Allergen Reactions Doxycycline Hives Rash all over body Sumatriptan Neuro complications (Please comment) Severe muscle pain, increased migraine. Current Outpatient Medications Medication Sig Dispense Refill [...] in the meantime Óscar Pina DO Cardiology [facility] [address] [facility] [address] 01/04/2025 documented in this encounter Plan of Treatment Upcoming Encounters Date Type Department Care Team (Latest Contact Info) Description 01/26/2025 7:00 AM EST Hospital Encounter CRS Waiting [facility], Cardiac Recovery Suite Waiting Unit, H [address] [place] [address] Óscar Pina DO [address] [place] [address] 01/26/2025 7:00 AM EST - 01/26/2025 9:00 AM EST Surgery CRS Waiting [facility], Cardiac Recovery Suite Waiting Unit, H [address] [facility] [place] [address] Óscar Pina, DO [address] [place] [facility] [address] SVT EPS AND CATHETER ABLATION 01/26/2025 7:00 AM EST Office Visit Cardiology [facility], Ethan [address] [place] [facility] [place] [address] Ethan, Cardiac Recovery [facility] [address] [place] [facility] [place] [address] 08/23/2025 3:30 PM EDT Cardiac Studies Cardiac Studies Hosp [facility], Ethan [address] [facility] [place] [address] Ethan, Ekg [address] [facility] [place] [address] 08/23/2025 4:00 PM EDT Office Visit Cardiology [facility], Ethan [address] [facility] [place] [address] Óscar Pina, [address] [place] [facility] [place] [address] Scheduled Procedures Name Priority Associated Diagnoses Date/Ti [...] Not on filedocumented as of this encounter Visit Diagnoses Diagnosis SVT (supraventricular tachycardia) (HCC)- Primary Other specified cardiac dysrhythmias SVT (supraventricular tachycardia) (HCC)- Primary Other specified cardiac dysrhythmias SVT (supraventricular tachycardia) (HCC) Other specified cardiac [...] Discussed due to patient's condition Care Teams Human Service Worker Relationship Specialty Start Date End Date Jess Hinojosa DO [address] [address] PCP - General Family Medicine 07/05/20 documented as of this encounter
--- OUTSIDE RECORDS SUMMARY | 2025-03-24 17:08 | External Medical Summary ---
Author Name Unknown Address Unknown Organization K1G[facility] - [address] [facility] [address] Laboratory Report Ordering Provider Test Date Status ROSI RICKS 12/26/2024 20:49:31 Fin al Observation Date Value Abnormality Reference (Units ) Status Body temperature 12/26/2024 20:49:31 37.0 (C) Final pH of Venous blood 12/26/2024 20:49:31 7.365 7.320-7.430 (units) Final Carbon dioxide [Partial pressure] in Venous blood 12/26/2024 20:49:31 53.6 40.0-60.0 (mmHg) Final Oxygen [Partial pressure] in Venous blood 12/26/2024 20:49:31 29.1 25.0-50.0 (mmHg) Final Base excess, Capillary 12/26/2024 20:49:31 3.8 Above high normal -2.0-2.0 (mmol/L) Final Hemoglobin [Mass/volume] in Blood by Oximetry 12/26/2024 20:49:31 14.4 14.0-16.8 (g/dL) Final Oxyhemoglobin, Venous (FO2HB) 12/26/2024 20:49:31 51.2 40.0-85.0 (% total Hgb) Final Carboxyhemoglobin 12/26/2024 20:49:31 1.0 <=1.5 (% total Hgb) Final Smokers: 0-9.0 % Methemoglobin 12/26/2024 20:49:31 1.0 <=1.5 (% total Hgb) Final Deoxyhemoglobin/Hemoglobin.t otal in Venous blood 12/26/2024 20:49:31 46.8 (% total Hgb) Carina l Oxygen content in Venous blood 12/26/2024 20:49:31 10.4 7.0-18.0 (%vol) Final Bicarbonate, Venous, POC (i-STAT) 12/26/2024 20:49:31 30.6 23.0-31.0 (mmol/L) Counts include 234 beds at the [facility] Performing Location [facility] - [address] [place] [address]
--- OUTSIDE RECORDS SUMMARY | 2025-03-24 17:08 | External Medical Summary | Summary of Care ---
Author Name Unknown Organization [facility] Address [address] [place] [address] Phone [phone] Care Team Providers Care Culinary Internship Name Role Phone AshishJess Fernando ADAMSON Primary Care Provider [phone] Reason for Visit * Reason Onset Date Comments Appointment 11/02/2024 Returning Call 11/02/2024 Encounter Details Date Type Department Care Team (Late st Contact Info) Description 11/02/2024 Refill Cardiac Studies, [facility] [address] [place] [address] Lauren Miranda, RN Allergies Active Allergy Reactions Criticality Noted Date [...] mRNA, LNP-s, No Pre serve, 2-Dose Series ([employer]) 09/15/2021,12/03/2020,11/09/2020 Covid-19, Mrna, Lnp-s, Pf, B ivalent, 30 Mcg, IM, 12 yrs and above ([employer]) 10/20/2022 DTP/HIB ([employer]) 1994,1994,1993 DTaP Dipth/Tet/Acell Pertussis [...] 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 Not on file Not on file [...] encounter Miscellaneous Notes * Addendum Note - Lauren Miranda RN - 11/02/2024 4:10 PM ESTAddended by: LAUREN MIRANDA on: 11/02/2024 04:10 PM Modules accepted: Orders * Telephone Encounter - Lauren Miranda RN - 11/02/2024 4:[address] IS SCHEDULED FOR 11-08-2024 at 10 am at [facility]. Please arrive 15 mins prior to [address]. Reviewed Pre Cardiac CT Eval & Prep and pre-procedure instructions with patient. Pt verbalized understanding of the following instructions: Nothing to eat for 4 hours and no caffeine 12 hours prior to scan Drink plenty of water before and after scan Take 100 mg Metoprolol at bedtime the night before the Cardiac CT. Take 100 mg Metoprolol [address] to [address] Medication sent to [facility] Take your medications as normal Your appointment will take up to 1 hour You will need to hold very still during the scan You will need to be able to hold your breath (without bearing down) for about 15-20 seconds during part of the scan. no allergy to contrast dye, and is not claustrophobic. Pt does not have any stimulators. You can bring a driver supervisor, the medication can make you feel very tired. Also Nitroglycerin will be given during the Cardiac CT. This medication can cause a Headache as well. The medication is short acting and after the test is completed you can get a caffeinated drink and something to eat and you willfeel better. Lauren Miranda RN * Telephone Encounter - Opal Vizcaino OSA - 11/02/2024 1:29 PM EST Person calling: Patient Relationship to patient: Patient Number to return call: [phone] Reason for call: returning call Pharmacy: N/A Provider Name: N/A Detailed message to office: Patient returning call to the office. Attempted to warm transfer, no response. TE sent. Caller aware. * Telephone Encounter - Lauren Miranda RN - 11/02/2024 1:20 PM EST Left message on machine for patient to call back for Cardiac CT instructions. Lauren Miranda RN documented in this encounter Plan of Treatment Upcoming Encounters Date Type Department Care Team (Late st Contact Info) Description 11/08/2024 10:00 AM EST Appointment Radiology, [place] [address] [place] [address] Health Maintenance Due Date Last Done Comments [...] Discussed due to patient's condition Care Teams Culinary Internship Relationship Specialty Start Date End Date Jess Hinojosa DO [address] [address] PCP - General Family Medicine 07/05/20 documented as of this encounter
--- OUTSIDE RECORDS SUMMARY | 2025-03-24 17:08 | External Medical Summary ---
Author Name Unknown Address Unknown Organization K1G:LABORATORY [facility] - [address] [place] [phone] Laboratory Report Ordering Provider Test Date Status ROSI RICKS 12/26/2024 22:14:26 Fin al Collect 1 HOUR Observation Date Value Abnormality Reference (Units ) Status Troponin T 12/26/2024 22:14:26 <6 <=22 (ng/ L) Final Performing Location LABORATORY [facility] - [address] [place] [phone]
--- OUTSIDE RECORDS SUMMARY | 2025-03-24 17:08 | External Medical Summary ---
Author Name Unknown Address Unknown Organization K1G:LABORATORY [facility] - [address] [facility] [address] Laboratory Report Ordering Provider Test Date Status ROSI RICKS 12/26/2024 20:46:54 Fin al Observation Date Value Abnormality Reference (Units ) Status BUN 12/26/2024 20:46:54 14 6-20 (mg/dL) Final Creatinine 12/26/2024 20:46:54 0.8 0.6-1.2 (mg/dL) Final Glomerular filtration rate/1.73 sq M.predicted [Volume Rate/Area] in Serum, Plasma or Blood by Creatinine-based formula (CKD-EPI) 12/26/2024 20:46:54 >90 >=60 (mL/min) Final eGFR is calculated based on the CKD-EPI 2020 equation. Sodium 12/26/2024 20:46:54 140 135-146 (m mol/L) Final Potassium 12/26/2024 20:46:54 3.7 3.5-5.1 (m mol/L) Final Cl 12/26/2024 20:46:54 101 98-107 (mm ol/L) Final CO2 12/26/2024 20:46:54 27 22-32 (mmo l/L) Final Anion gap 12/26/2024 20:46:54 12 7-15 (mmol /L) Final Glucose 12/26/2024 20:46:54 88 70-120 (mg /dL) Final Albumin 12/26/2024 20:46:54 4.4 3.8-5.0 (g /dL) Final AST (Aspartate aminotransferase) 12/26/2024 20:46:54 17 10-50 (U/L) Final Alk Phos 12/26/2024 20:46:54 64 35-130 (U/ L) Final Bilirubin, Total 12/26/2024 20:46:54 <0.2 <=1 .2 (mg/dL) Final Calcium 12/26/2024 20:46:54 9.0 8.4-10.2 ( mg/dL) Final Protein 12/26/2024 20:46:54 7.1 6.0-8.3 (g /dL) Final ALT (Alanine aminotransferase) 12/26/2024 20:46:54 24 10-50 (U/L) Final Performing Location LABORATORY [facility] - [address] [place] [phone]
--- OUTSIDE RECORDS SUMMARY | 2025-03-24 17:09 | External Medical Summary | Summary of Care ---
Author Name Unknown Organization [facility] Address [address] [place] [address] Phone [phone] Care Team Providers Care Cigarette Catcher Name Role Phone Jess iHnojosa DO Primary Care Provider [phone] Reason for Visit * Reason Onset Date Comments Appointment 11/02/2024 Returning Call 11/02/2024 Encounter Details Date Type Department Care Team (Late st Contact Info) Description 11/02/2024 Telephone Cardiac Studies, [facility] [address] [place], [place] [id number] Mariajose Smith, RADHA Appointment; Returning Call Allergies [...] mRNA, LNP-s, No Pre serve, 2-Dose Series ([employer]) 09/15/2021,12/03/2020,11/09/2020 Covid-19, Mrna, Lnp-s, Pf, B ivalent, 30 Mcg, IM, 12 yrs and above ([employer]) 10/20/2022 DTP/HIB ([employer]) 1994,1994,1993 DTaP Dipth/Tet/Acell Pertussis [...] 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 Not on file Not on file [...] to patient: Patient Number to return call: [phone] Reason for call: returning call Pharmacy: N/A [...] Description 11/08/2024 10:00 AM EST Appointment Radiology, [place] [address] [place] [address] Health Maintenance Due Date Last [...] Discussed due to patient's condition Care Teams Cigarette Catcher Relationship Specialty Start Date End Date Jess Hinojosa DO [address] [facility] [address] [address] PCP - General Family Medicine 07/05/20 documented as of this encounter
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
[2025-03-24] MEDS: PROPARACAINE 0.5% 225 DROPS/15 ML BTL OPR STA (18:15)
[2025-03-24] MEDS: MoRPHine SULFATE 4 MG/ML 1 ML CARP\\VIAL IV STA (19:03)
[2025-03-24] MEDS: ONDANSETRON INJ 2 MG/ML 2 ML VIAL IV STA (19:03)
[2025-03-24 19:10] LABS: iSTAT Creatinine 1.1 mg/dl (0.6-1.3); iSTAT Hemoglobin 14.6 g/dl (14.0-18.0); iSTAT Ionized Calcium 1.18 mmol/l (1.12-1.32); iSTAT Potassium 3.6 mmol/L (3.3-5.0)
[2025-03-24 19:14] LABS: Basophils # (auto) 0.12 K/uL (0.00-0.20); Basophils % (auto) 1.4 %; Eosinophils # (auto) 0.24 K/uL (0.00-0.50); Eosinophils % (auto) 2.7 %; Hematocrit (blood only) 42.4 % (42.0-52.0); Hemoglobin 13.9 g/dl (14.0-18.0); Immature Granulocytes # (auto) 0.02 K/uL (0.01-0.20); Immature Granulocytes % (auto) 0.2 %; Lymphocytes % (auto) 21.7 %; Mean Corpuscular Hemoglobin 27.7 pg (25.0-34.0); Mean Corpuscular Hgb Conc 32.8 g/dL (32.0-36.0); Mean Corpuscular Volume 84.5 fL (80.0-100.0); Mean Platelet Volume 11.5 fL (9.4-12.4); Monocytes # (auto) 0.53 K/uL (0.11-0.59); Monocytes % (auto) 6.1 %; Neutrophils # (auto) 5.94 K/uL (1.40-6.50); Neutrophils % (auto) 67.9 %; Platelet Count 266 K/uL (130-400); RDW Standard Deviation 39.9 fL (36.4-46.3); Red Blood Count 5.02 M/uL (4.70-6.10); White Blood Count 8.75 K/ul (4.8-10.8)
[2025-03-24] MEDS: OPTIRAY 320 100ml IV ONE (19:28)
[2025-03-24 19:37] LABS: Albumin Globulin Ratio 1.5 (0.9-2); Albumin Level 4.5 gm/dl (3.4-5.0); BUN Creatinine Ratio 17.6 (10-20); Bilirubin,Total 0.4 mg/dl (0.2-1.0); Calcium 9.1 mg/dl (8.6-10.3); Creatinine Clr Calc Pharmacy 133.2 ml/min; Globulin 3.1 gm/dl (2.5-4.0); Potassium 3.7 mmol/L (3.5-5.1); Total Protein 7.6 gm/dl (6.0-8.3)
--- NOTE | 2025-03-24 20:06 | CT Scan Report ---
CT ORBITS WITH CONTRAST: HISTORY: Pain TECHNIQUE: Contrast-enhanced orbit CT examination is performed. Coronal and sagittal reformats were created. IV CONTRAST: 100 mL of Omnipaque 300 COMPARISON: FINDINGS: There is mild preseptal soft tissue swelling over the right orbit. No postseptal inflammation detected. There is also increased enhancement over the right globe conjunctiva. No drainable/organized fluid collection is identified. No evidence of acute traumatic fracture. The paranasal sinuses and mastoids are well aerated. IMPRESSION: Right orbit preseptal cellulitis and conjunctivitis. Electronically signed by Dante Gipson 03-24-2025 8:06 PM
[2025-03-24] MEDS: AMPICILLIN/SULBACTAM SOD 3,000 MG/100 ML BAG IV STA (21:07)
[2025-03-24] MEDS: ERYTHROMYCIN OP OINT 5 MG/GM 3.5 GM TUBE OPR STA (21:08)
[2025-03-24] MEDS: KETOROLAC TROMETHAMINE 15 MG/ML VIAL IV ONE (21:32)
[2025-03-24] MEDS ORDERED: IBUPROFEN 200 MG TAB PO PRN (22:12)
[2025-03-24] MEDS: LACTATED RINGER'S 1,000 ML IV STA (22:56)
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
[2025-03-24] MEDS ORDERED: LORazepam 0.5 MG TAB PO PRN (23:33)
[2025-03-24] MEDS ORDERED: PROMETHAZINE 6.25 MG/50.25 ML BAG IV PRN (23:33)
[2025-03-25] MEDS: AMPICILLIN/SULBACTAM SOD 3,000 MG/100 ML BAG IV SCH (03:43)
[2025-03-25] MEDS: KETOROLAC TROMETHAMINE 15 MG/ML VIAL IV PRN (04:27)
[2025-03-25] MEDS ORDERED: AMPICILLIN/SULBACTAM SOD 3,000 MG/100 ML BAG IV SCH (06:00)
[2025-03-25 06:35] LABS: Basophils # (auto) 0.08 K/uL (0.00-0.20); Basophils % (auto) 1.2 %; Eosinophils # (auto) 0.29 K/uL (0.00-0.50); Eosinophils % (auto) 4.3 %; Hematocrit (blood only) 38.1 % (42.0-52.0); Hemoglobin 12.5 g/dl (14.0-18.0); Immature Granulocytes # (auto) 0.01 K/uL (0.01-0.20); Immature Granulocytes % (auto) 0.1 %; Lymphocytes # (auto) 1.85 K/uL (1.20-3.40); Lymphocytes % (auto) 27.6 %; Mean Corpuscular Hemoglobin 27.7 pg (25.0-34.0); Mean Corpuscular Hgb Conc 32.8 g/dL (32.0-36.0); Mean Corpuscular Volume 84.5 fL (80.0-100.0); Mean Platelet Volume 11.3 fL (9.4-12.4); Monocytes # (auto) 0.51 K/uL (0.11-0.59); Monocytes % (auto) 7.6 %; Neutrophils # (auto) 3.96 K/uL (1.40-6.50); Neutrophils % (auto) 59.2 %; Platelet Count 195 K/uL (130-400); RDW Standard Deviation 39.8 fL (36.4-46.3); Red Blood Count 4.51 M/uL (4.70-6.10)
[2025-03-25 07:07] LABS: BUN Creatinine Ratio 15.7 (10-20); Calcium 8.2 mg/dl (8.6-10.3); Creatinine Clr Calc Pharmacy 160.1 ml/min; Potassium 4.2 mmol/L (3.5-5.1)
[2025-03-25] MEDS: ENOXAPARIN INJ 40 MG/0.4 ML SYR SQ SCH (08:08)
[2025-03-25] MEDS: ERYTHROMYCIN OP OINT 5 MG/GM 3.5 GM TUBE OPR SCH (08:09)
[2025-03-25] MEDS ORDERED: VANCOMYCIN CONSULT ACTIVE PRN (11:27)
--- NOTE | 2025-03-25 11:48 | Pharmacy Report ---
Pharmacy PK ABX Note - Date of Service March 25, 2025 - Assessment and Plan Assessment 30 year old M receiving Vancomycin and Unasyn for treatment of orbital cellulitis. * Day #1 of antimicrobial therapy. * Afebrile. No leukocytosis. Renal fxn stable. Plan Vancomycin * Loading dose: 2250 mg IV x 1 * Maintenance dose: 1250 mg IV every 8 hours * Regimen is predicted to achieve target AUC/CHOCO of 400-600 mg/L.hr * Random level ordered for: 03/27/25 Unasyn * 3 g IV every 6 hours Pharmacy will continue to follow and will adjust dose/frequency as necessary. Thank you. Pharmacy has transitioned to AUC monitoring for vancomycin. AUC/CHOCO is the preferred PK/PD target and is associated with decreased risk of nephrotoxicity compared to traditional trough targets.
[2025-03-25] MEDS: VANCOMYCIN HCL 2,250 MG in SODIUM CHLORIDE 0.9% 500 ML IV STA (12:53)
[2025-03-25] MEDS: ACETAMINOPHEN 325 MG TAB PO PRN (13:00)
[2025-03-25] MEDS ORDERED: ALBUTEROL HFA 8 GM INHALER INH PRN (14:41)
[2025-03-25] MEDS ORDERED: SIMETHICONE 80 MG CHEW PO PRN (14:41)
--- NOTE | 2025-03-25 14:42 | Hospitalist Progress Note ---
Date of Service March 25, 2025 Assessment & Plan (1) Eye infection: Plan: 30 yo M w/ PMH of PSVT status post ablation, hyperlipidemia, bronchial asthma, ALANA on CPAP, migraine, Betancourt's esophagus/GERD status post surgery, IBS, chronic anemia (baseline hemoglobin of 13), Tourette disorder, mood disorder, past tobacco abuse presents 5/3 with complaint of right eye pain and swelling without blurry vision symptoms. Patient notes that he got poked on the right eye by his son about a week ago [employer]. He is being managed for the following: Right preseptal cellulitis Acute conjunctivitis right eye Possible orbital cellulitis No sepsis POA Patient presents with right eyelid swelling and pain, apparently did not have blurry vision complaint at presentation. The following day in the morning, patient complains of blurry vision since last evening and ophthalmoplegia since last evening. Admitting CT orbit: Right orbit preseptal cellulitis and conjunctivitis. Patient was started on erythromycin ointment and Unasyn 5/. Continue. Add vancomycin / and moxifloxacin eyedrop 5/. Due to likely progression to possible orbital cellulitis, I did speak with ophthalmology on-call Dr. Cota who agrees with addition of vancomycin and recommended adding moxifloxacin, also recommends ID consult and repeat of CT Orbit if with further worsening of ophthalmoplegia or eye swelling or worsening chemosis. Continue to monitor clinically, labs in AM. ID consult. Patient and his was updated in detail the plan of care at bedside. Other chronic medical conditions: Continue with/resume home meds as when able. PSVT status post ablation, on beta-christina bronchial asthma, stable ALANA on CPAP Betancourt's esophagus/GERD status post surgery on PPI Chronic anemia, hemoglobin at baseline Tourette disorder, off maintenance medications since his teens mood disorder, stable past tobacco abuse DVT prophylaxis with Lovenox subcu Full code Text document was generated using [employer] voice recognition software. It may contain grammatical or spelling errors. Kindly contact undersigned for clarification of any documentation item in question. Admission and Anticipated Discharge Date Admission Date: March 24, 2025 Subjective Patient was seen and examined at bedside. Patient was lying in bed, on room air, NAD, resting comfortably. Patient reports right eyelid swelling slightly increasing and erythema slightly increasing. Patient also reports having blurry vision and pain when moving eyeball since last evening. Patient denies flulike illness or febrile illness in the last few weeks. Patient reports eating okay Physical Exam Physical Exam: GENERAL: Comfortable, obese, pleasant, no respiratory distress SKIN: Normal color, warm HEENT: Tender right eyelid swelling, right conjunctival injection, moist buccal mucosa, ophthalmoplegia + NECK : Supple, no tenderness CHEST : CTA, no tenderness HEART : RRR, no obvious murmurs ABDOMEN: Some distention, nontender EXTREMITIES : Minimal LE swelling without LE tenderness, palpable pulses, no other conspicuous deformities noted NEUROLOGIC : Coherent, no facial asymmetry, no other gross focality Results & Data Results & Data Vital Signs (Past 12 Hours) Vital Signs Temp Pulse Resp BP Pulse Ox O2 Del Method 03/25/25 07:12 36.3 C L 70 16 97/59 L 97 Room Air
[2025-03-25] MEDS: MOXIFLOXACIN HCL 0.5% OP SOLN 3 ML BTL OP SCH (14:46)
[2025-03-25] MEDS: VANCOMYCIN HCL 1,250 MG in SODIUM CHLORIDE 0.9% 250 ML IV SCH (20:16)
[2025-03-25] MEDS: METOPROLOL SUCC 25MG EXT REL TAB PO SCH (20:26)
[2025-03-26 07:05] LABS: Hematocrit (blood only) 39.4 % (42.0-52.0); Hemoglobin 12.7 g/dl (14.0-18.0); Mean Corpuscular Hemoglobin 27.3 pg (25.0-34.0); Mean Corpuscular Hgb Conc 32.2 g/dL (32.0-36.0); Mean Corpuscular Volume 84.5 fL (80.0-100.0); Mean Platelet Volume 11.5 fL (9.4-12.4); Platelet Count 222 K/uL (130-400); RDW Coefficient of Variation 13.2 % (11.5-14.5); RDW Standard Deviation 40.7 fL (36.4-46.3); Red Blood Count 4.66 M/uL (4.70-6.10)
[2025-03-26 07:21] LABS: BUN Creatinine Ratio 12.5 (10-20); Calcium 8.2 mg/dl (8.6-10.3); Creatinine Clr Calc Pharmacy 166.1 ml/min; Phosphorus 3.3 mg/dl (2.5-4.9); Potassium 4.2 mmol/L (3.5-5.1)
[2025-03-26] MEDS: PANTOprazole 40 MG TAB PO SCH (09:36)
[2025-03-26] MEDS: ADVANCED PROBIOTIC 625 MG CAPSULE PO SCH (09:36)
--- NOTE | 2025-03-26 14:15 | Hospitalist Progress Note ---
Date of Service March 26, 2025 Assessment & Plan (1) Eye infection: Plan: 30 yo M w/ PMH of PSVT status post ablation, hyperlipidemia, bronchial asthma, ALANA on CPAP, migraine, Betancourt's esophagus/GERD status post surgery, IBS, chronic anemia (baseline hemoglobin of 13), Tourette disorder, mood disorder, past tobacco abuse presents 5/3 with complaint of right eye pain and swelling without blurry vision symptoms. Patient notes that he got poked on the right eye by his son about a week ago [employer]. He is being managed for the following: Right preseptal cellulitis Acute conjunctivitis right eye Possible orbital cellulitis No sepsis POA Patient presents with right eyelid swelling and pain, apparently did not have blurry vision complaint at presentation. The following day in the morning, patient complains of blurry vision since last evening and ophthalmoplegia since last evening. Admitting CT orbit: Right orbit preseptal cellulitis and conjunctivitis. Patient was started on erythromycin ointment and Unasyn 03/24. Continue. c/w vancomycin 03/25 and moxifloxacin eyedrop 03/25. Due to likely progression to possible orbital cellulitis, I did speak with ophthalmology on-call Dr. Cota 03/25 who agrees with addition of vancomycin and recommended adding moxifloxacin, also recommends ID consult and repeat of CT Orbit if with further worsening of ophthalmoplegia or eye swelling or worsening chemosis. Continue to monitor clinically, labs in AM. ID consult, await recs Other chronic medical conditions: Continue with/resume home meds as when able. PSVT status post ablation, on beta-christina bronchial asthma, stable ALANA on CPAP Betancourt's esophagus/GERD status post surgery on PPI Chronic anemia, hemoglobin at baseline Tourette disorder, off maintenance medications since his teens mood disorder, stable past tobacco abuse DVT prophylaxis with Lovenox subcu Full code Text document was generated using [employer] voice recognition software. It may contain grammatical or spelling errors. Kindly contact undersigned for clarification of any documentation item in question. Admission and Anticipated Discharge Date Admission Date: March 24, 2025 Subjective Patient was seen and examined at bedside. Patient was lying in bed, on room air, NAD, resting comfortably. Right eye swelling and conjunctival redness is improving significantly. Patient reports eyeball pain and blurry vision about the same/maybe minimal improvement. Patient reports eating okay, denies other issues. Reports overall feeling better today. Physical Exam Physical Exam: GENERAL: Comfortable, obese, pleasant, no respiratory distress SKIN: Normal color, warm HEENT: Right eyelid swelling - improving, right conjunctival injection - improving, moist buccal mucosa, ophthalmoplegia + NECK : Supple, no tenderness CHEST : CTA, no tenderness HEART : RRR, no obvious murmurs ABDOMEN: Some distention, nontender EXTREMITIES : Minimal LE swelling without LE tenderness, palpable pulses, no other conspicuous deformities noted NEUROLOGIC : Coherent, no facial asymmetry, no other gross focality Results & Data Results & Data Vital Signs (Past 12 Hours) Vital Signs Temp Pulse Resp BP Pulse Ox O2 Del Method 03/26/25 14:11 36.7 C 58 L 18 118/76 99 Room Air 03/26/25 07:12 36.6 C 55 L 18 118/75 99 Room Air
--- NOTE | 2025-03-26 15:11 | Infectious Disease Consult ---
Date of Service March 26, 2025 Telehealth Information I performed this visit using a real-time telehealth connection between my location and the patients location ([facility]). After connecting through interactive tele-video, patient was identified by name and date of and/or wristband check.Patient (or authorized healthcare pharmacy sales representative) was informed that this was a telemedicine visit and it was being conducted confidentially over secure lines. My office door was closed and no one else was present in the room with me.Patient (or authorized healthcare pharmacy sales representative) provided consent to proceed with the visit, expressed an understanding of privacy and security of the telemedicine visit, and gave permission to have a hospital pharmacy sales representative in the room in order to assist with the visit and to conduct portions of the visit, as needed. I informed the patient (or authorized healthcare pharmacy sales representative) that I reviewed their record and presented the opportunity for them to ask any questions regarding the visit today. The patient agreed to participate. Assessment & Plan (1) Preseptal cellulitis of right eye: Plan: R preseptal cellulitis w/ acute conjunctivitis Obesity Hx of allergy to doxycycline - Stop vancomycin iv and unasyn - Start linezolid 600 mg po bid and augmentin 875 mg/125 mg po bid to complete 7 more days from today - Probiotic while on abx - Discussed possible side effects of the abx and food items to avoid while on abx - the patient will continue to follow up w/ ophthalmology as outpatient - ID signing off The infection seems to be responding well to abx therapy. I agree to cover usual skin annette and OP annette, including MRSA. During this patient encounter, one or more of the following was provided in addition to my in person visit: disease transmission risk assessment and mitigation; public health investigation, analysis, and testing; and/or complex antimicrobial therapy counseling and treatment. I spent a total of 80 minutes coordinating, documenting, and providing care for this patient excluding time spent in the performance of separately billed services or time spent by another provider/QHP. History of Present Illness History of Present Illness This is a 30 y/o male ([place]) w/ hx of PSVT s/po ablation, ALANA on CPAP, Barretts esophagus/GERD s/p surgery, and Tourette d/o, who presented to [facility] on 03/24/25 for 2 days of worsening R eye pain and swelling w/ yellow discharge. He reports mild pain in R eye when moving away from the center, directed towards t he back of the eye. His son poked him in his R eye about 2 weeks ago. No change in vision. CT showed evidence of R orbit preseptal cellulitis and conjunctivitis. Currently, he has minimal blurry vision in E eye, enough to be noticeable. +mild headach behind the R eye. No f/c, coughing, cp, sob, abd pain, n/v, or diarrhea. 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 No obvious eye injury besides his interaction w/ his son. He wears eye glasses. 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 The swelling in the R eye is improving since abx was started. Allergies Allergy/AdvReac Type Severity Reaction Status Date / Time doxycycline Allergy Intermediate Hives Verified 03/24/25 21:20 sumatriptan AdvReac Cramping Verified 03/24/25 21:17 of the Muscles Home Medications Medication Instructions Recorded Confirmed Type albuterol sulfate 90 mcg/actuation 2 puff inhalation DIRECTED PRN 08/21/20 03/24/25 History aerosol inhaler SHORT OF BREATH rizatriptan 10 mg tablet (Maxalt) 10 mg PO DIRECTED PRN Migraine 02/04/21 03/24/25 History Headache acetaminophen 325 mg tablet 975 mg PO QID PRN Pain 03/24/25 03/24/25 History metoprolol succinate 25 mg 25 mg PO BID 03/24/25 03/24/25 History tablet,extended release 24 hr pantoprazole 40 mg tablet,delayed 40 mg PO DAILY 03/24/25 03/24/25 History release simethicone 80 mg chewable tablet 80 mg PO Q6H PRN Gastric Reflux 03/24/25 03/24/25 History Patient History Medical History History of anesthesia reaction HARD TO PUT DOWN Hx of gastric ulcer Bloody diarrhea REASON FOR UPCOMING PROCEDURE Hematemesis reason for upcoming procedure Hx of syncope 2013 X 1 EPISODE GERD (gastroesophageal reflux disease) Tourette disorder "VERY MILD" Asthma HAS NOT USED INHALER FOR OVER 1 YEAR Migraines Surgical History History of bronchoscopy History of esophagogastroduodenoscopy (EGD) History of appendectomy [place] teeth removed Family History Mother Family history of diabetes mellitus Father Family history of diabetes mellitus Uncle Family history of Crohn's disease Other Family history of breast cancer No pertinent family history in first degree relatives Social History Smoking Status: Current some day smoker Tobacco Type: Smokeless Tobacco (Dip or Chew) Second Hand Exposure: No; Do You Dip or Chew Tobacco: Yes (Nicotine pouches); Tobacco Cessation Education Requested by Patient: No Hx Alcohol Use: Yes Hx Substance Use: No Preferred Language: Maltese Communication Ability: Effective Nurse Practitioner Manager Required: No Beliefs That Will Affect Care: None Current Living Situation: Spouse Other Information That Helps Us Care for You: No Feels Safe at Home: Yes Safety Concerns: Feels Safe At This Time Assistive Devices: None Review of Systems as HPI and all others negative Physical Exam Gen: no acute distress Eye: EOMI, minimal swelling on R eyelid, minimal scleral injection on R eye, no obvious discharge Lungs: breathing comfortably on RA Neuro: AAOx3, conversant Results & Data Vital Signs (Past 12 Hours) Vital Signs Temp Pulse Resp BP Pulse Ox O2 Del Method 03/26/25 14:11 36.7 C 58 L 18 118/76 99 Room Air 03/26/25 07:12 36.6 C 55 L 18 118/75 99 Room Air Laboratory Results WBC 7.1K H 12.7 Plt 222K Cr 0.8 (CrCl 166) CT orbit (03/24): Right orbit preseptal cellulitis and conjunctivitis. Medications Administered Unasyn 5/3- Vancomycin iv 5/4- Moxifloxacin eye drop 5/4-
[2025-03-27] MEDS: VANCOMYCIN LEVEL ONE (04:32)
[2025-03-27 04:44] LABS: Creatinine Clr Calc Pharmacy 156.4 ml/min
[2025-03-27 07:45] VITALS: RESP 18; TEMP 97.9; O2SAT 98
[2025-03-27 08:31] VITALS: BP 117/74; PULSE 72
--- NOTE | 2025-03-27 11:41 | Discharge Summary ---
Date of Service March 27, 2025 Admission HPI Per Admitting Provider History obtained from patient and records. Medical history significant for PSVT status post ablation, hyperlipidemia, bronchial asthma, ALANA on CPAP, migraine, Betancourt's esophagus/GERD status post surgery, IBS, chronic anemia (baseline hemoglobin of 13), Tourette disorder, mood disorder, past tobacco abuse. Patient got poked on the right eye by his infant son last week. Few days later, patient noted progressive painful right eye pain and swelling without blurred vision symptoms. Yellow discharge as per patient. No fever, no chills. Patient consulted ER for evaluation. IV Unasyn and topical erythromycin administered at the ER for preseptal cellulitis on CT and conjunctivitis. Patient uncomfortable going home. 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 Admission Exam Per Admitting Provider GENERAL: Comfortable, obese, pleasant, no respiratory distress SKIN: Normal color, warm HEENT: Tender right eyelid swelling, right conjunctival injection, moist buccal mucosa NECK : Supple, no tenderness CHEST : CTA, no tenderness HEART : RRR, no obvious murmurs ABDOMEN: Some distention, nontender EXTREMITIES : Minimal LE swelling without LE tenderness, palpable pulses, no other conspicuous deformities noted NEUROLOGIC : Coherent, no facial asymmetry, no other gross focality Principal Diagnosis Right preseptal cellulitis Acute conjunctivitis right eye Possible orbital cellulitis Discharge Exam GENERAL: Comfortable, obese, pleasant, no respiratory distress SKIN: Normal color, warm HEENT: Right eyelid swelling - improving, right conjunctival injection - improving, moist buccal mucosa, ophthalmoplegia -ve NECK : Supple, no tenderness CHEST : CTA, no tenderness HEART : RRR, no obvious murmurs ABDOMEN: Some distention, nontender EXTREMITIES : Minimal LE swelling without LE tenderness, palpable pulses, no other conspicuous deformities noted NEUROLOGIC : Coherent, no facial asymmetry, no other gross focality Discharge Data Allergies Allergy/AdvReac Type Severity Reaction Status Date / Time doxycycline Allergy Intermediate Hives Verified 03/24/25 21:20 sumatriptan AdvReac Cramping Verified 03/24/25 21:17 of the Muscles Consultations 03/24/25 22:05 ED Decision to Admit Stat 03/25/25 13:43 Consult Infectious Diseases Routine Ordered Studies 03/24/25 18:44 CT orbit BI w con Stat Hospital Course (1) Eye infection: 30 yo M w/ PMH of PSVT status post ablation, hyperlipidemia, bronchial asthma, ALANA on CPAP, migraine, Betancourt's esophagus/GERD status post surgery, IBS, chronic anemia (baseline hemoglobin of 13), Tourette disorder, mood disorder, past tobacco abuse presents 03/24 with complaint of right eye pain and swelling without blurry vision symptoms. Patient notes that he got poked on the right eye by his infant son about a week ago [employer]. He was managed for the following: Right preseptal cellulitis Acute conjunctivitis right eye Possible orbital cellulitis No sepsis POA Patient presents with right eyelid swelling and pain, apparently did not have blurry vision complaint at presentation. The following day in the morning, patient complains of blurry vision since last evening and ophthalmoplegia since last evening. Admitting CT orbit: Right orbit preseptal cellulitis and conjunctivitis. Patient was started on erythromycin ointment and Unasyn 03/24. Continue. c/w vancomycin 03/25 and moxifloxacin eyedrop 03/25 --ID evaled 03/26, to PO antibiotic to complete the course. Due to likely progression to possible orbital cellulitis, I did speak with ophthalmology on-call Dr. Cota 03/25 who agrees with addition of vancomycin and recommended adding moxifloxacin, also recommends ID consult and repeat of CT Orbit if with further worsening of ophthalmoplegia or eye swelling or worsening chemosis. --> rediscussed case w/ Dr Cota 03/27, ok to continue topical antibiotic for 7days, the office will call to setup appointment for the patient. Patient reports significant improvement in his blurry vision and significant improvement in his eye pain with eyeball movement. Patient reports feeling significantly better. The eyelid erythema and swelling has significantly improved. Other chronic medical conditions: Continue with/resume home meds as when able. PSVT status post ablation, on beta-christina bronchial asthma, stable ALANA on CPAP Betancourt's esophagus/GERD status post surgery on PPI Chronic anemia, hemoglobin at baseline Tourette disorder, off maintenance medications since his teens mood disorder, stable past tobacco abuse DVT prophylaxis with Lovenox subcu Full code Patient is being discharged home with following instructions at the point of discharge: Follow-up with your primary care physician within a week time and likely you will need labs CBC/CMP/magnesium/phosphorus. You will be discharged on antibiotic to complete the course per infectious disease recommendation. Follow-up with ophthalmology in a week time upon discharge. I spoke with Dr Cota at [facility] for your care while in hospital, the office should be calling you within few days to set up appointment, if not please google this up and call yourself to set up appointment. Take probiotics while on antibiotic. Avoid rubbing/scratching your eye. Take your medications as prescribed. Please make sure that you are able to get your medications today by calling your pharmacy before you leave the hospital so that your treatment continuity is not broken. Text document was generated using [employer] voice recognition software. It may contain grammatical or spelling errors. Kindly contact undersigned for clarification of any documentation item in question. Home Health Attestation I certify that this patient is under my care and that I, or a physicians resident care assistant working with me, had a face to-face encounter that meets the home health [id number] encounter requirements with this patient. The encounter with the patient was in whole, or in part, for the following medical condition, which is the primary reason for home health care (list medical condition): I certify that, based on my findings, the following services are medically necessary home health services: My clinical findings support the need for the above services because: Further, I certify that my clinical findings support that this patient is homebound (i.e. absences from home require considerable and taxing effort and are for medical reasons or restorationism services or infrequently or of short duration when for other reasons) because: Certification for Home Health Services: Based on the above findings, I certify that this patient is confined to the home and needs intermittent senior living care, physical therapy and/or speech therapy or continues to need occupational therapy. The patient is under my care, and I have initiated the establishment of the plan of care. This patient will be followed by a physician who will periodically review the plan of care. Total Time Total Time Spent Total Time Spent (In Minutes): 35 Discharge Plan Discharge Items Patient Disposition: Home - Self-Care Reason For Visit: R EYE SWELLING Discharge Diagnosis: Right preseptal cellulitis Acute conjunctivitis right eye Possible orbital cellulitis Condition on Discharge: Good Activity: Resume your previous activity Non-emergency contact: Primary Care Provider Call non-emergency contact if: you have any medication questions Follow-up/Referrals: Jess Hinojosa DO [Primary Care Provider] - (Date & Time 04/03/2025 10:00 AM Provider: Jess Hinojosa, Family Practice [facility] ) Diet: Regular Addtl Attending Provider Instructions: Follow-up with your primary care physician within a week time and likely you will need labs CBC/CMP/magnesium/phosphorus. You will be discharged on antibiotic to complete the course per infectious disease recommendation. Follow-up with ophthalmology in a week time upon discharge. I spoke with Dr Cota at [facility] for your care while in hospital, the office should be calling you within few days to set up appointment, if not please google this up and call yourself to set up appointment. Take probiotics while on antibiotic. Avoid rubbing/scratching your eye. Take your medications as prescribed. Please make sure that you are able to get your medications today by calling your pharmacy before you leave the hospital so that your treatment continuity is not broken. Pending Studies at Discharge: No Stand-Alone Forms: [facility], Smoking Cessation Medications and DC Order Prescriptions: New amoxicillin-pot clavulanate 875-125 mg Tablet 1 tab PO BID 6 Days Qty: 12 0RF linezolid 600 mg Tablet 600 mg PO BID 6 Days Qty: 12 0RF erythromycin 5 mg/gram (0.5 %) Ointment 1 applic OPR QID 7 Days Qty: 3.5 0RF moxifloxacin 0.5 % Drops 1 drp ophthalmic (eye) TID 7 Days Qty: 3 0RF Advanced Probiotic 625 mg (10 billion cell) Capsule 1 cap PO DAILY 10 Days Qty: 10 0RF Continued albuterol sulfate 90 mcg/actuation Hfa Aerosol Inhaler 2 puff INHALATION DIRECTED PRN (Reason: SHORT OF BREATH) rizatriptan [Maxalt] 10 mg tablet 10 mg PO DIRECTED PRN (Reason: Migraine Headache) pantoprazole 40 mg tablet,delayed release (DR/EC) 40 mg PO DAILY metoprolol succinate 25 mg tablet extended release 24 hr 25 mg PO BID acetaminophen 325 mg Tablet 975 mg PO QID PRN (Reason: Pain) simethicone 80 mg Tablet,Chewable 80 mg PO Q6H PRN (Reason: Gastric Reflux) Discharge Orders: Discharge Order (Routine); Ordered 03/27/25 Ordered By: Marti Polanco Admission Data Admit Date/Time: 03/26/25 14:12 Attending Provider: Marti Polanco Admit Provider: Terrance Grossman Primary Care Provider: Jess Hinojosa Other Providers: Terrance Grossman; Kash Martell; Tj Jeronimo; Gerardo Alegria; Flores Jackson; Curry Mercado
[2025-03-27] MEDS: LINEZOLID 600 MG TAB PO SCH (11:46)
[2025-03-27] MEDS: AMOXICILLIN/CLAVULANATE 875 MG TAB PO SCH (11:46)
== END 2025-03-27 16:07 | disposition home or self-care (01) | DRG 603 ==
LOC: ED 17:00 → 3E 17:00